=== PATIENT | female | born 1990 | race Caucasian/White ===

== ENCOUNTER 2018-02-13 09:10 | Emergency (ER) | payer OTHER, SELFPAY ==
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
--- OUTSIDE RECORDS SUMMARY | 2018-02-13 09:14 | XMS REPORT | Summary of Care ---
:1990 Author Encounter RACHEAL Burns(JUAN) [id number] Date(s): 06/16/14 - 06/19/[address] Professional Services provided by [facility] [place] [address]- Discharge Disposition: Home Physician Attending: Sin Faulkner MD Physician Admitting: Maggie Jeronimo MD Vital Signs Most recent to oldest 1 2 3 [Reference Range]: Height 152.4 cm (06/16/14 11:29 PM) Temperature Oral [96.4-99.1 98.1 DegF 97.6 DegF 97.9 DegF DegF] (06/19/14 8:43 AM) (06/19/14 4:27 AM) (06/18/14 7:13 PM) Blood Pressure [90-140/60-90 102/69 mmHg 113/79 mmHg 106/73 mmHg mmHg] (06/19/14 8:43 AM) (06/19/14 4:27 AM) (06/18/14 7:13 PM) Respiratory Rate [14-20 BRMIN] 18 BRMIN 18 BRMIN 19 BRMIN (06/19/14 8:43 AM) (06/19/14 4:27 AM) (06/18/14 7:13 PM) Peripheral Pulse Rate [60-100 70 bpm 71 bpm 67 bpm bpm] (06/19/14 8:43 AM) (06/19/14 4:27 AM) (06/18/14 7:13 PM) Weight 52.5 kg (06/16/14 11:29 PM) Body Mass Index 22.6 m2 (06/16/14 11:29 PM) Problem List No data available for this section Allergies, Adverse Reactions, Alerts Substance Reaction Severity Status NKDA Active Medications acetaminophen 650 mg, 2 tab, Route: PO, Drug form: TAB, Q4H, Dosing Weight 52.5, kg, PRN Pain 1-3/Temp > 100.4 F, Start date: 06/17/14 0:25:00, Duration: 30 day, Stop date: 07/17/14 0:24:00 Notes: Do not exceed 4 gm/day. (Same as: Tylenol) Start Date: 06/17/14 Stop Date: 06/19/14 Status: DiscontinuedALPRAZOLam unknown, 0 Refill(s) Start Date: 06/17/14 Stop Date: 06/17/14 Status: DiscontinuedALPRAZOLam 0.5 mg oral tablet, disintegrating 0.5 mg=1 tab, PO, Daily, PRN for anxiety, 0 Refill(s) Start Date: 06/17/14 Stop Date: 06/19/14 Status: Discontinuedcalcium carbonate 500 mg, 1 tab, Route: CHEW, Drug form: TAB, ONCE, Dosing Weight 52.5, kg, Start date: 06/18/14 22:41:00, Stop date: 06/18/14 22:41:00 Notes: 500mg elemental [id number] calcium carbonate. Contains 500mg elemental calcium. (Same As: OsCal 500) Start Date: 06/18/14 Stop Date: 06/18/14 Status: CompletedcefTRIAXone 2 gm, Route: IVPB, Drug form: PDR/INJ, GROE88H, Dosing Weight 52.5, kg, Start date: 06/17/14 8:00:00, Duration: 7 day, Stop date: 06/23/14 20:00:00 Notes: (Same As: Rocephin). Start Date: 06/17/14 Stop Date: 06/19/14 Status: Discontinueddocusate 100 mg, 1 cap, Route: PO, Drug form: CAP, BID, Dosing Weight 52.5, kg, PRN Constipation, Start date:06/17/14 0:25:00, Duration: 30 day, Stop date: 0:24:00 Notes: (Same as: Colace) (Do Not Crush) Start Date: 06/17/14 Stop Date: 06/19/14 Status: Discontinuedescitalopram unknown, 0 Refill(s) Start Date: 06/17/14 Stop Date: 06/17/14 Status: DiscontinuedFluzone Quadrivalent [id number] 0.5 mL, Route: IM, Drug Form: SUSP, Daily, Start date: 06/18/14 9:00:00, Duration: 1 doses or times,Stop date: 06/18/14 9:00:00 Notes: (Same as: Fluzone Quadrivalent) Start Date: 06/18/14 Stop Date: 06/18/14 Status: Completedibuprofen 800 mg, 1 tab, Route: PO, Drug form: TAB, ONCE, Dosing Weight 52.5, kg, Start date: 06/17/14 0:24:00, Stop date: 06/17/14 0:24:00 Notes: (Same as: Motrin)"Do Not Crush" Take with food. Start Date: 06/17/14 Stop Date: 06/17/14 Status: Completedibuprofen 800 mg, 1 tab, Route: PO, Drug form: TAB, ONCE, Dosing Weight 52.5, kg, Start date: 06/17/14 20:24:00, Stop date: 06/17/14 20:24:00 Notes: (Same as: Motrin)"Do Not Crush" Take with food. Start Date: 06/17/14 Stop Date: 06/17/14 Status: Completedinfluenza virus vaccine, inactivated 0.5 mL, Route: IM, Drug Form: SUSP, Daily, Start date: 06/17/14 9:00:00, Duration: 1 doses or times,Stop date: 06/17/14 9:00:00 Notes: (Same as: Fluzone Quadrivalent) Start Date: 06/17/14 Stop Date: 06/17/14 Status: DeletedLexapro 5 mg oral tablet 5 mg=1 tab, PO, Daily, # 90 tab, 0 Refill(s) Start Date: 06/17/14 Status: OrderedNorco 5/325 oral tablet 1 tab, Route: PO, Drug Form: TAB, Dosing Weight 52.5, kg, ONCE, Start date: 15:45:00, Stop date: 06/17/14 15:45:00 Notes: (Same as: [place] 325/5) Do not exceed 4gm/day of acetaminophen. Start Date: 06/17/14 Stop Date: 06/17/14 Status: Completedondansetron 4 mg, 2 mL, Route: IVP, Drug form: INJ, Q8H, Dosing Weight 52.5, kg, PRN Nausea & Vomiting, Start date: 06/17/14 0:25:00, Duration: 30 day, Stop date: 07/17 0:24:00 Notes: (Same as: Zofran) Start Date: 06/17/14 Stop Date: 06/19/14 Status: Discontinuedpneumococcal 23-valent vaccine 0.5 ml, Route: IM, Drug Form: INJ, Daily, Start date: 06/17/14 9:00:00, Duration : 1 doses or times, Stop date: 06/17/14 9:00:00 Notes: (Same as: Pneumovax 23) Refrigerate Start Date: 06/17/14 Stop Date: 06/17/14 Status: DeletedPneumovax 23 0.5 ml, Route: IM, Drug Form: INJ, Daily, Start date: 06/18/14 9:00:00, Duration : 1 doses or times, Stop date: 06/18/14 9:00:00 Notes: (Same as: Pneumovax 23) Refrigerate Start Date: 06/18/14 Stop Date: 06/18/14 Status: Completedpotassium chloride 20 mEq/15 mL oral liquid 40 mEq, 30 mL, Route: PO, Drug form: LIQ, Daily, Dosing Weight 52.5, kg, Start date: 06/19/14 9:00:00, Duration: 30 day, Stop date: 07/18/14 9:00:00 Notes: (Same as: Potassium Chloride) Start Date: 06/19/14 Stop Date: 06/19/14 Status: Discontinued Results ELECTROLYTES Most recent to oldest 1 2 3 [Reference Range]: Sodium Lvl [135-145 mEq/L] 140 mEq/L 140 mEq/L 140 mEq/L (06/19/14 4:58 AM) (06/18/14 5:21 AM) (06/17/14 3:49 AM) Potassium Lvl [3.5-5.1 3.3 mEq/L 3.8 mEq/L 3.6 mEq/L mEq/L] *LOW* (06/18/14 5:21 AM) (06/17/14 3:49 AM) (06/19/14 4:58 AM) Chloride Lvl [95-109 mEq/L] 105 mEq/L 106 mEq/L 104 mEq/L (06/19/14 4:58 AM) (06/18/14 5:21 AM) (06/17/14 3:49 AM) CO2 [24-32 mEq/L] 29 mEq/L 26 mEq/L 27 mEq/L (06/19/14 4:58 AM) (06/18/14 5:21 AM) (06/17/14 3:49 AM) AGAP [10.0-20.0 mEq/L] 9.3 mEq/L 11.8 mEq/L 12.6 mEq/L *LOW* (06/18/14 5:21 AM) (06/17/14 3:49 AM) (06/19/14 4:58 AM) CHEM PANEL Most recent to oldest 1 2 3 [Reference Range]: Creatinine Lvl [0.5-1.4 0.6 mg/dL 0.6 mg/dL 0.7 mg/dL mg/dL] (06/19/14 4:58 AM) (06/18/14 5:21 AM) (06/17/14 3:49 AM) eGFR 130 mL/min/1.73m2 1 130 mL/min/1.73m2 2 123 mL/min/1.73m2 3 *NA* *NA* *NA* (06/19/14 4:58 AM) (06/18/14 5:21 AM) (06/17/14 3:49 AM) BUN [7-22 mg/dL] 5 mg/dL 5 mg/dL 5 mg/dL *LOW* *LOW* *LOW* (06/19/14 4:58 AM) (06/18/14 5:21 AM) (06/17/14 3:49 AM) B/C Ratio [6-25] 7 (06/17/14 3:49 AM) Glucose Lvl [70-99 mg/dL] 80 mg/dL 4 77 mg/dL 5 84 mg/dL 6 (06/19/14 4:58 AM) (06/18/14 5:21 AM) (06/17/14 3:49 AM) Total Protein [6.4-8.4 6.7 g/dL g/dL] (06/17/14 3:49 AM) Albumin Lvl [3.5-5.0 g/dL] 2.4 g/dL *LOW* (06/17/14 3:49 AM) Globulin [2.0-4.0 g/dL] 4.3 g/dL *HI* (06/17/14 3:49 AM) A/G Ratio [0.7-1.6] 0.6 *LOW* (06/17/14 3:49 AM) Calcium Lvl [8.5-10.5 8.7 mg/dL 8.3 mg/dL 8.3 mg/dL mg/dL] (06/19/14 4:58 AM) *LOW* *LOW* (06/18/14 5:21 AM) (06/17/14 3:49 AM) Phosphorus [2.5-4.5 mg/dL] 3.7 mg/dL 4.8 mg/dL 2.9 mg/dL (06/19/14 4:58 AM) *HI* (06/17/14 3:49 AM) (06/18/14 5:21 AM) Magnesium Lvl [1.8-2.4 1.9 mg/dL 1.9 mg/dL 1.8 mg/dL mg/dL] (06/19/14 4:58 AM) (06/18/14 5:21 AM) (06/17/14 3:49 AM) ALT [0-65 unit/L] 13 unit/L (06/17/14 3:49 AM) AST [0-37 unit/L] 10 unit/L (06/17/14 3:49 AM) Alk Phos [39-136 unit/L] 103 unit/L (06/17/14 3:49 AM) Bili Total [0.2-1.3 mg/dL] 0.6 mg/dL (06/17/14 3:49 AM) 1Result Comment: The eGFR is calculated using the CKD-EPI formula. In most young , healthy individualsthe eGFR will be >90 mL/min/1.73m2. The eGFR declines with age. An eGFR of 60-89 may be normal in some populations, particularly the elderly, for whom the CKD-EPI formula has not been extensively validated. Use of the eGFR is not recommended in the following populations: Individuals with unstable creatinine concentrations, including patients and those with serious co-morbid conditions. Patients with extremes in muscle mass or diet. The data above are obtained from the National Kidney Disease Education Program ( NKDEP) which additionally recommends that when the eGFR is used in patients with extremes of body mass index for purposesof drug dosing, the eGFR should be multiplied by the estimated BMI.2Result Comment: The eGFR is calculated using the CKD-EPI formula. In most young, healthy individualsthe eGFR will be >90 mL/ min/1.73m2. The eGFR declines with age. An eGFR of 60-89 may be normal in some populations, particularly the elderly, for whom the CKD-EPI formula has not been extensively validated. Use of the eGFR is not recommended in the following populations: Individuals with unstable creatinine concentrations, including patients and those with serious co-morbid conditions. Patients with extremes in muscle mass or diet. The data above are obtained from the National Kidney Disease Education Program ( NKDEP) which additionally recommends that when the eGFR is used in patients with extremes of body mass index for purposesof drug dosing, the eGFR should be multiplied by the estimated BMI.3Result Comment: The eGFR is calculated using the CKD-EPI formula. In most young, healthy individualsthe eGFR will be >90 mL/ min/1.73m2. The eGFR declines with age. An eGFR of 60-89 may be normal in some populations, particularly the elderly, for whom the CKD-EPI formula has not been extensively validated. Use of the eGFR is not recommended in the following populations: Individuals with unstable creatinine concentrations, including patients and those with serious co-morbid conditions. Patients with extremes in muscle mass or diet. The data above are obtained from the National Kidney Disease Education Program ( NKDEP) which additionally recommends that when the eGFR is used in patients with extremes of body mass index for purposesof drug dosing, the eGFR should be multiplied by the estimated BMI.4Interpretive Data: Adult reference range values reflect the clinical guidelines of the [place] [employer].5Interpretive Data: Adult reference range values reflect the clinical guidelines of the [place] [employer].6Interpretive Data: Adult reference range values reflect the clinical guidelines of the [place] [employer].URINE AND STOOL Most recent to oldest [Reference Range]: 1 2 3 UA Turbidity [Clear] Slight *ABN* (06/17/14 3:49 AM) UA Color [Yellow] Yellow *NA* (06/17/14 3:49 AM) UA pH [5.0-8.0] 6.5 (06/17/14 3:49 AM) UA Spec Grav [<=1.030] 1.010 (06/17/14 3:49 AM) UA Glucose [Negative mg/dL] Negative mg/dL *NA* (06/17/14 3:49 AM) UA Blood [Negative] Negative (06/17/14 3:49 AM) UA Ketones [Negative mg/dL] Negative mg/dL *NA* (06/17/14 3:49 AM) UA Protein [Negative mg/dL] 10 mg/dL *ABN* (06/17/14 3:49 AM) UA Urobilinogen [0.1-1.0 mg/dL] 8.0 mg/dL *HI* (06/17/14 3:49 AM) UA Bili [Negative] Negative *NA* (06/17/14 3:49 AM) UA Leuk Est [Negative] Small *ABN* (06/17/14 3:49 AM) UA Nitrite [Negative] Negative (06/17/14 3:49 AM) UA WBC [0-5 /HPF] 19 /HPF *HI* (06/17/14 3:49 AM) UA RBC [0-2 /HPF] 1 /HPF (06/17/14 3:49 AM) UA Bacteria [None Seen /HPF] Occasional /HPF *NA* (06/17/14 3:49 AM) UA Sq Epi [Few /LPF] Many /LPF *ABN* (06/17/14 3:49 AM) UA Mucus [None Seen /LPF] Few /LPF *NA* (06/17/14 3:49 AM) BODY FLUIDS Most recent to oldest [Reference Range]: 1 2 3 Glucose CSF [45-80 mg/dL] 69 mg/dL (06/17/14 1:43 AM) Protein CSF [15-45 mg/dL] 27 mg/dL (06/17/14 1:43 AM) Tube Num CSF 1 *NA* (06/17/14 1:43 AM) Color CSF [Colorless] Colorless (06/17/14 1:43 AM) Clarity CSF [Clear] Clear (06/17/14 1:43 AM) Supernat CSF [Colorless] Colorless (06/17/14 1:43 AM) RBC CSF [0-0 /mm3] 1 /mm3 *HI* (06/17/14 1:43 AM) WBC CSF [0-5 /mm3] 1 /mm3 (06/17/14 1:43 AM) IMMUNOLOGY Most recent to oldest [Reference Range]: 1 2 3 VZV PCR NOT DETECTED 7 *NA* (06/15/14 10:03 PM) Source CSF *NA* (06/15/14 10:03 PM) 7Result Comment: REFERENCE RANGE: NOT DETECTED This test was developed and its performance characteristics have been determined by [facility]. Performance characteristics refer to the analytical performance of the test. This test is performed pursuant to a license agreement with [employer]. Test Performed at: [email or web address]. [address] [place] [id number] Val Palmer MDHEMATOLOGY Most recent to oldest 1 2 3 [Reference Range]: WBC [3.7-10.4 K/CMM] 7.7 K/CMM 8.6 K/CMM 10.0 K/CMM (06/19/14 4:58 AM) (06/18/14 5:21 AM) (06/17/14 3:49 AM) RBC [4.20-5.40 M/CMM] 3.64 M/CMM 3.77 M/CMM 3.93 M/CMM *LOW* *LOW* *LOW* (06/19/14 4:58 AM) (06/18/14 5:21 AM) (06/17/14 3:49 AM) Hgb [12.0-16.0 g/dL] 11.7 g/dL 12.1 g/dL 12.5 g/dL *LOW* (06/18/14 5:21 AM) (06/17/14 3:49 AM) (06/19/14 4:58 AM) Hct [36.0-48.0 %] 34.9 % 36.3 % 37.6 % *LOW* (06/18/14 5:21 AM) (06/17/14 3:49 AM) (06/19/14 4:58 AM) MCV [80.0-98.0 fL] 95.9 fL 96.3 fL 95.8 fL (06/19/14 4:58 AM) (06/18/14 5:21 AM) (06/17/14 3:49 AM) MCH [27.0-31.0 pg] 32.2 pg 32.1 pg 31.8 pg *HI* *HI* *HI* (06/19/14 4:58 AM) (06/18/14 5:21 AM) (06/17/14 3:49 AM) MCHC [32.0-36.0 g/dL] 33.6 g/dL 33.3 g/dL 33.2 g/dL (06/19/14 4:58 AM) (06/18/14 5:21 AM) (06/17/14 3:49 AM) RDW [11.5-14.5 %] 13.4 % 13.5 % 13.5 % (06/19/14 4:58 AM) (06/18/14 5:21 AM) (06/17/14 3:49 AM) Platelet [133-450 K/CMM] 301 K/CMM 238 K/CMM 216 K/CMM (06/19/14 4:58 AM) (06/18/14 5:21 AM) (06/17/14 3:49 AM) MPV [7.4-10.4 fL] 8.2 fL 8.7 fL 8.3 fL (06/19/14 4:58 AM) (06/18/14 5:21 AM) (06/17/14 3:49 AM) Segs [45.0-75.0 %] 64.2 % 66.2 % 69.3 % (06/19/14 4:58 AM) (06/18/14 5:21 AM) (06/17/14 3:49 AM) Lymphocytes [20.0-40.0 %] 19.4 % 15.6 % 11.8 % *LOW* *LOW* *LOW* (06/19/14 4:58 AM) (06/18/14 5:21 AM) (06/17/14 3:49 AM) Monocytes [2.0-12.0 %] 14.9 % 16.8 % 17.9 % *HI* *HI* *HI* (06/19/14 4:58 AM) (06/18/14 5:21 AM) (06/17/14 3:49 AM) Eosinophils [0.0-4.0 %] 1.1 % 1.2 % 0.7 % (06/19/14 4:58 AM) (06/18/14 5:21 AM) (06/17/14 3:49 AM) Basophils [0.0-1.0 %] 0.4 % 0.2 % 0.3 % (06/19/14 4:58 AM) (06/18/14 5:21 AM) (06/17/14 3:49 AM) Segs-Bands # [1.5-8.1 K/CMM] 4.9 K/CMM 5.7 K/CMM 6.9 K/CMM (06/19/14 4:58 AM) (06/18/14 5:21 AM) (06/17/14 3:49 AM) Lymphocytes # [1.0-5.5 1.5 K/CMM 1.3 K/CMM 1.2 K/CMM K/CMM] (06/19/14 4:58 AM) (06/18/14 5:21 AM) (06/17/14 3:49 AM) Monocytes # [0.0-0.8 K/CMM] 1.1 K/CMM 1.4 K/CMM 1.8 K/CMM *HI* *HI* *HI* (06/19/14 4:58 AM) (06/18/14 5:21 AM) (06/17/14 3:49 AM) Eosinophils # [0.0-0.5 0.1 K/CMM 0.1 K/CMM 0.1 K/CMM K/CMM] (06/19/14 4:58 AM) (06/18/14 5:21 AM) (06/17/14 3:49 AM) MOLECULAR DIAGNOSTIC Most recent to oldest [Reference Range]: 1 2 3 Source HSV Cerebral Spinal Fluid *NA* (06/15/14 10:03 PM) HSV 1 by PCR [Negative] Negative 8 (06/15/14 10:03 PM) HSV 2 by PCR [Negative] Negative 9, 10 (06/15/14 10:03 PM) 8Result Comment: This sample was NON DETECTED or BELOW THE LOWER LIMITS OF DETECTION for HSV 1 DNA by real-time PCR using hybridization probe and melting curve analysis.9Result Comment: This sample was NON DETECTED or BELOW THE LOWER LIMITS OF DETECTION for HSV 2 DNA by real-time PCR using hybridization probe and melting curve analysis.10Interpretive Data: All results should be used as an aid in diagnosis and used in correlation with clinical findings and patient symptoms. A negative result does not rule out the presence of Herpes Simplex Virus. The specimen may contain HSV below the detectable limits of the assay. An indeterminate result will be obtained if inhibitors of PCR are present. The test is performed using Analyte Specific Reagents (ASRs) for Real-Time nucleic acid amplification (PCR) from [employer] The performance characteristics of this assay were validated by the [facility] within [facility]. The [facility] is authorized under the Clinical Improvement Amendments of 1988 (CLIA -88) to perform high-complexity testing. This test has not been cleared by the U.S. Food and Drug Administration (FDA). However, FDA approval is not required and the use should not be considered investigational or research.VIRAL - SEROLOGY Most recent to oldest [Reference Range]: 1 2 3 Enterovirus PCR CSF [Negative] Negative 11 (06/15/14 10:03 PM) 11Interpretive Data: Interpretation: Negative.....No enterovirus DNA detected by PCR Positive.....Enterovirus DNA detected by PCR Assay Limitations: A negative result does not rule out the presence of PCR inhibitors in the patient specimen or Enterovirus nucleic acid in concentrations below the level of detection of the assay. Immunizations Vaccine Date Refusal Reason influenza virus vaccine, inactivated 06/18/14 pneumococcal 23-valent vaccine 06/18/14 Procedures Procedure Date Related Diagnosis Body Site Breast reduction, bilateral 12/22/13 Social History Social History Type Response Sexual Sexually active: Yes. Sexually active at age 16 Years. Partner with STD? No. Uses condoms: Yes. History of sexual abuse: No. Sex Mutually Satisfying: Yes. Change in Libido: No. Self Breast Exam Yes. Last Pap Smear April 2013. Menstrual Period Started: Yes. Exercise Exercise frequency: 1-2 times/week. Exercise type: Walking, Running, Yoga. Employment/School Status: Employed. 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 Operates hazardous equipment: No. Alcohol Current, Type Beer, Wine, Liquor. Frequency: 1-2 times per week. Previous treatment: None. Alcohol use interferes with work or home: No. Drinks more than intended: No. Others hurt by drinking: No. Ready to change: No. Household alcohol concerns: No. Smoking Status Light tobacco smoker; Type: Cigarettes; Number of years: 1; Total pack years: 3; Started at age: 22.0; Previous treatment: None; Ready to change: No; Concerns about tobacco use in household: No; Exposure to Tobacco Smoke None; Cigarette Smoking Last 365 Days Yes; Reg Smoking Cessation Counseling No Assessment and Plan Extracted from: Title: Clinical Document Author: Terry Mcknight MD Date: 06/19/14 Name: June Gallardo Record Number: [id number] Admission Date: 06/17/2014 Discharge Date: 06/19/2014 Diagnoses: aseptic menigitis Procedures: none Consults: none Chief Complaint: headache with fever HPI/Hospital Course: Ms Gallardo is a 23yo woman with PMHx of anxiety/depression, who presented with a 6 day history of severe headache, with high fevers( between 100-103 with a high of 104) and neck pain concerning for nicole terial meningitis. She also complained of a severe headache that did not improve with trial of naproxen. She stated she felt weak and suffered from neck/ back pain and stiffness as well. She was seen at an outside hospital day prior to admission, where an LP was conducted. CSF returned positive for H Flu antigen, and pt was called and told to go back in to initiate antibiotic treatment. She was given c eftriaxone (dose unknown but assumed 2g) IV x 1 as well as vancomycin dose unknown, and transfered to [facility] for higher level of care. Since arrival, she has remained afebrile, but her headache continues. She states she is up to date on her vaccinations and still has a functioning spleen as far as she is concerned. 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 No recent travel. Two infants at home are not ill and are up to date on vaccin ations. During the admission, she was treated with ceftriaxone. Her CSF was resent for studies but they were normal, glucose 69, protein 27, with 1 WBC and RBC. The patient did not have any fevers whil e admitted, and had no leukocytosis. Her headache resolved with ibuprofen 800 mg. The patient was monitored for 2 more days, and due to patient having complete return to baseline and no signs fo infecti on in house, there was a very low suspicion for bacterial infection. She may have had aseptic menigitis which was is now resolved. The patient did have monocytosis and some anemia, but they will be foll owed as outpatient. Bacterial antigen CSF was resent for and will be followed up to confirm. Discharge therapy: follow up with PCP for follow up labs Medications: Please see EMR Diet: regular Activity: no resitrictions Follow up: with PCP within 2 weeks Discharge condition: stable Disposition: home Discharge Instructions: Please take all medications as prescribed. If patient experiences any severe headache, severe neck stiffness, fever signs of infection , bleeding, please seek medical attention. Terry Mcknight, PGY-1 Internal Medicine, Team A Personal: [phone] TEACHING ATTENDING ATTESTATION STATEMENT: I have examined this patient and obtained the history and performed a physical examination. I have evaluated the objective data and determined the assessment a nd plan. I have seen this patient with Dr. Mcknight, medicine resident and discussed in detail. I agree with his summary of the hospital course and discharge plan outlined in the discharge note. Sin Faulkner MD Medicine Teaching Service Attending Extracted from: Title: Medicine Progress Note Author: Terry Mcknight MD Date: 06/19/14 Team A Daily Progress Note Patient Room: [place] [address], 3WCP JUNE GALLARDO 23y (: 1990) F Attending: Sin Faulkner MD Service: Nephrology Service Subjective: Patient states she has improved back to baseline. No complaints this AM. Objective: Vitals Tmp(F) Pulse BP RR SpO2 FIO2 06/19 04:27 97.6 71 113/79 18 99 --- 06/18 19:13 97.9 67 106/73 19 99 --- 06/18 16:38 97.6 66 105/71 16 100 --- 06/18 07:59 98.1 83 107/71 16 100 --- 06/18 04:18 97.5 75 96/66 17 100 --- 24 Hr Tmax: 98.1F (36.72c) at 06/18 07:59 Vital Signs are the last 5 in the past 48 hours. Date Wt(kg) Wt(lb) Ht(cm) Ht(in) Method 06/16 (initial) 52.50 115.50 Measured 06/16 152.40 60.00 Stated General: Alert and oriented. Laying in bed comfortably. Eye: Pupils are equal, round and reactive to light, Extraocular movements are intact, Normal conjunctiva. HENT: Normocephalic, Normal hearing, Oral mucosa is moist. Neck: Supple, no jugular venous distention, no lymphadenopathy. No tendernes/ rigidity Respiratory: Lungs are clear to auscultation, Respirations are non-labored. Cardiovascular: Normal rate, regular rhythm, normal s1/s2, no murmur, no gallop. Gastrointestinal: Non-tender. Non-distended, Normal bowel sounds, No organomegaly. Musculoskeletal Normal range of motion. Normal strength. No tenderness. No swelling. Neurologic: Alert, Oriented, No focal deficits, Cranial Nerves II-XII are grossly intact. Psychiatric: Cooperative, Appropriate mood & affect. Data: 24hr Labs 06/19 0458 Glucose Lvl 80 BUN 5 L Creatinine Lvl 0.6 Sodium Lvl 140 Potassium Lvl 3.3 L Chloride Lvl 105 CO2 29 AGAP 9.3 L Calcium Lvl 8.7 eGFR 130 Magnesium Lvl 1.9 Phosphorus 3.7 WBC 7.7 RBC 3.64 L Hgb 11.7 L Hct 34.9 L MCV 95.9 MCH 32.2 H MCHC 33.6 RDW 13.4 Platelet 301 MPV 8.2 Segs 64.2 Monocytes 14.9 H Lymphocytes 19.4 L Eosinophils 1.1 Basophils 0.4 Segs-Bands # 4.9 Lymphocytes # 1.5 Monocytes # 1.1 H Eosinophils # 0.1 06/15 2202 Enterovirus PCR CSF Negative Impression and Plan Ms Gallardo is a pleasant 23yo woman with PMHx of anxiety/depression, presents with a 6 day history of severe headache, with high fevers and neck pain concerning for bacterial meningitis. # Bacterial vs Viral Meningitis - H flu antigen positive, but no WBCs and no RBCs on CSF fluid analysis per report, called "[facility]" and [facility] to add on HSV and VZV PCR on CSF samples. Cultures are pending. - Continue ceftriaxone 2g IV Q12H at this time for total of 7 days, started - monitor for recurrent fever or worsening headache - Will repeat LP if symptoms return - at this time, patient shows no signs of infection, during our admission CSF studies were normal, low suspicion for infection # Headache - Likely meningeal - CT Head from OSH given to radiology reading room to be uploaded - Ibuprofen 800mg x 1, improved # Hx of Anxiety / Depression - continue home med of lexapro Diet: regular Activity: OOB as tolerated VTE ppx: ambulatory GI ppx: N/A Lines: PIV Rehab: N/A Wound Care: N/A Pain Control: acetaminophen / ibuprofen Code Status: FULL Follow Ups: TBD Dispo: pending further work up Terry Mcknight, PGY-1 Internal Medicine, Team A Personal: [phone] Addendum by Sin Faulkner MD on TEACHING ATTENDING ATTESTATION STATEMENT: I have examined this patient and obtained the history and performed a physical examination. I have evaluated the objective data and determined the assessment a 06/19/2014 11:49 nd plan. I have seen this patient with Dr. Mcknight, medicine resident, and I have discussed the patient in detail on teaching rounds. I have reviewed his progress note below and I agree with the summar y of the interval progress and plan of care outlined by Dr. Mcknight in his progress note. Sin Faulkner MD Medicine Teaching Service Attending Extracted from: Title: Resident Addendum H&P Author: Abhijit Mcneil MD Date: 06/17/[address] Vaughn's H&P for additional details. This is a 23 year old White lady with history of depression/anxiety who was transferred from [facility] [place]. She presented there with a 1-week history of headache, neck stiffness/ pain, and high fevers up to 104. Her fevers and headache did not resolve with honp-frr-dxcccki tylenol and ibuprofen. She has had some sick contacts as well. While at [facility] she underwent lumbar puncture, results were as follows: WBC 0, Glucose 69, Protein 29. Head CT was negative. She was discharged but then later asked to come back after further CSF s tudies were positive for H. flu antigen. Prior to transfer she was started on ceftriaxone. As far as she knows, her immunizations are up to date. She also thinks that the sick children were vaccinated. On exam she is no apparent distress. Her mentation was normal. There were no focal neurological deficits or photophobia. She has some perioral lesions that are healing that appear to be herpes labialis. She states that they started appearing during the time she got sick. She usually gets these during stress. Overall, I think she gives a good story for meningitis, but it is weird that her CSF results were normal. She has CSF cultures that are pending from [facility]; I called and verified this. I asked them to try adding HSV and VZV PCR if there is still CSF sample left. In the meantime, we will continue ceftriaxone and start droplet precautions. I don't think she still needs vancomycin. I also don't thin k this is herpes meningoencephalitis even though the perioral lesions do concern me a little, because she has had no altered mentation or temporal enhancement. I think aseptic meningitis should still be in the differential. If routine cultures grow out H. flu, then I think the case can be closed. I agree with Dr. Mcneil's summary above. Sin Faulkner MD
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
[2018-02-13] MEDS ORDERED: ONDANSETRON 4 MG/2 ML VIAL ONE (10:03)
[2018-02-13] MEDS ORDERED: NA CHLORIDE 0.9% 1,000 ML ONE (10:03)
[2018-02-13] MEDS ORDERED: ACETAMINOPHEN 325 MG TABLET ONE (10:03)
[2018-02-13 10:11] LABS: Absolute Lymphocytes (CBC) 1.2 K/uL (0.7-4.9); Absolute Monocytes 0.9 K/uL (0.1-1.3); Absolute Neutrophil 15.9 K/uL (1.8-8.0); Basophils % 0.3 % (0-1.3); Eosinophils % 0.2 % (0-4.4); Hematocrit 45.4 % (36.0-45.0); Lymphocytes % 6.7 % (15.3-44.8); MCH 33.3 pg (27.0-35.0); MCV 95.7 fL (80-100); MPV 9.2 fL (7.6-11.3); RBC Red Blood Cell Count 4.74 M/uL (3.86-4.86)
[2018-02-13 10:18] LABS: Albumin 4.6 g/dL (3.4-5.0); Bilirubin Direct 0.1 mg/dL (0-0.2); Bilirubin Total 0.4 mg/dL (0.2-1.0); Potassium 3.9 mmol/L (3.5-5.1); Protein, Total 9.1 g/dL (6.4-8.2)
[2018-02-13] MEDS ORDERED: PROMETHAZINE 25 MG/ML VIAL ONE (11:41)
[2018-02-13 11:48] LABS: Urine Blood NEGATIVE (NEG); Urine Glucose NEGATIVE (NEG); Urine Protein TRACE (NEG); Urine Specific Gravity 1.025 (1.005-1.030); Urine pH 5.5 (5.0-7.0)
--- NOTE | 2018-02-13 11:50 | RAD REPORT ---
EXAM DESCRIPTION: CTAbdomen Pelvis W Contrast - 02/13/2018 11:40 am CLINICAL HISTORY: Abdominal pain. iv only;Abd pain COMPARISON: No comparisons TECHNIQUE: Biphasic CT imaging of the abdomen and pelvis was performed with 100 ml non-ionic IV cont rast. All CT scans are performed using dose optimization technique as appropriate and may include automated exposure control or mA/KV adjustment according to patient size. FINDINGS: The lung bases are clear. Mild fatty liver is present. The spleen, pancreas, adrenal glands and left kidney are normal. Right k idney contains a 13 mm benign cyst superiorly. No hydronephrosis. No bowel obstruction, free air, free fluid or abscess. The appendix is normal. No evidence of signi ficant lymphadenopathy. No suspicious bony findings. Prominent fluid is seen in the endometrial canal. IMPRESSION: No acute intra-abdominal or pelvic finding. Fatty liver noted.
--- NOTE | 2018-02-13 12:13 | ER ---
Nurse's Notes [facility] Name: Shital Ramirez Age: 27 yrs Sex: Female : 1990 Arrival Date: 02/13/2018 Time: 09:13 Bed 13 Private MD: Vitaliy Parada Diagnosis: Gastroenteritis Presentation: 02/13 09:20 Presenting complaint: Patient states: nausea and vomiting that began today at 0430. Pt aa5 states "my whole back is hurting but I think it's from being sore from coughing". Transition of care: patient was not received from another setting of care. Onset of symptoms was February 13, 2018. Risk Assessment: Do you want to hurt yourself or someone else? Patient reports no desire to harm self or others. Care prior to arrival: None. 09:20 Method Of Arrival: Ambulatory aa5 09:20 Acuity: AYE 3 aa5 09:24 Initial Sepsis Screen: Does the patient meet any 2 criteria? HR > 90 bpm. tw2 10:04 Initial Sepsis Screen: Does the patient have a suspected source of infection? No. tw2 Patient's initial sepsis screen is negative. 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 - Social history:: Smoking status: Patient/guardian denies using tobacco. - Ebola Screening: : No symptoms or risks identified at this time. Screenin:23 Abuse screen: Denies threats or abuse. Nutritional screening: No deficits noted. tw2 Tuberculosis screening: No symptoms or risk factors identified. Fall Risk None identified. Assessment: 10:04 General: Appears in no apparent distress. slender, Behavior is calm, cooperative, tw2 appropriate for age. Pain: Complains of pain in abdomen. Neuro: Level of Consciousness is awake, alert, obeys commands, Oriented to person, place, time, situation. Cardiovascular: Heart tones S1 S2 Patient's skin is warm and dry. Respiratory: Airway is patent Respiratory effort is even, unlabored, Respiratory pattern is regular, symmetrical, Breath sounds are clear bilaterally. GI: Abdomen is flat, Bowel sounds present X 4 quads. Reports lower abdominal pain, upper abdominal pain, nausea. : No signs and/or symptoms were reported regarding the genitourinary system. EENT: Derm: Skin is intact, is healthy with good turgor, Skin is dry, Skin temperature is warm. Musculoskeletal: No signs and/or symptoms reported regarding the musculoskeletal system. 11:00 Reassessment: Patient appears in no apparent distress at this time. No changes from tw2 previously documented assessment. Patient and/or family updated on plan of care and expected duration. Pain level reassessed. Patient is alert, oriented x 3, equal unlabored respirations, skin warm/dry/pink. 12:08 Reassessment: Patient appears in no apparent distress at this time. No changes from tw2 previously documented assessment. Patient and/or family updated on plan of care and expected duration. Pain level reassessed. Patient is alert, oriented x 3, equal unlabored respirations, skin warm/dry/pink. 12:39 Reassessment: Patient appears in no apparent distress at this time. Patient and/or tw2 family updated on plan of care and expected duration. Pain level reassessed. Patient is alert, oriented x 3, equal unlabored respirations, skin warm/dry/pink. nausea is decreased. Patient states feeling better. Patient states symptoms have improved. Vital Signs: 09:21 BP 114 / 96; Pulse 116; Resp 18 S; Temp 99.0(TE); Pulse Ox 100% on R/A; Weight 49.9 kg aa5 (R); Height 5 ft. 0 in. (152.40 cm) (R); Pain 8/10; 10:19 BP 109 / 96; Pulse 89; Resp 18; Pulse Ox 98% on R/A; tw2 11:00 BP 94 / 72; Pulse 84; Resp 17; Pulse Ox 99% on R/A; tw2 12:07 BP 99 / 66; Pulse 93; Resp 17; Temp 98.7(O); Pulse Ox 97% on R/A; tw2 12:38 BP 103 / 63; Pulse 88; Resp 17; Pulse Ox 99% on R/A; tw2 09:21 Body Mass Index 21.48 (49.90 kg, 152.40 cm) aa5 ED Course: 09:13 Patient arrived in ED. rg4 09:13 Vitaliy Parada MD is Private Physician. rg4 09:21 Triage completed. aa5 09:21 Arm band placed on. aa5 09:23 [facility] jr8 09:23 Melvin Barth MD is Attending Physician. jr8 09:23 Leidy Avendaño, YONG is Primary Nurse. tw2 09:24 Bed in low position. Call light in reach. Adult w/ patient. Pulse ox on. NIBP on. tw2 09:52 Initial lab(s) drawn, by me, by rn lab, sent to lab. Flu and/or RSV swab sent to lab. mh5 Inserted saline lock: 22 gauge in right antecubital area, using aseptic technique. Blood collected. 09:52 Basic Metabolic Panel Sent. mh5 09:52 CBC with Diff Sent. mh5 09:52 Creatinine for Radiology Sent. mh5 09:53 Patient has correct armband on for positive identification. Placed in gown. Side rails mh5 up X 1. 09:53 Hepatic Function Sent. mh5 09:53 Lipase Sent. mh5 11:[address] vr 11:40 CT completed. Patient tolerated procedure well. Patient moved back from CT. jg6 11:40 CT Abd/Pelvis - W/Contrast In Process Unspecified. EDMS 12:12 Vitaliy Parada MD is Referral Physician. jr8 12:39 No provider procedures requiring assistance completed. IV discontinued, intact, tw2 bleeding controlled, No redness/swelling at site. Pressure dressing applied. Administered Medications: 10:00 Drug: Zofran 4 mg Route: IVP; Site: right antecubital; tw2 11:50 Follow up: Response: No adverse reaction; Nausea unchanged tw2 10:02 Drug: NS 0.9% 1000 ml Route: IV; Rate: 1000 ml; Site: right antecubital; tw2 11:50 Follow up: Response: No adverse reaction; IV Status: Completed infusion; IV Intake: tw2 1000ml 10:03 Drug: Tylenol 650 mg Route: PO; tw2 11:51 Follow up: Response: No adverse reaction tw2 11:50 Drug: Promethazine 12.5 mg Route: IVP; Site: right antecubital; tw2 12:34 Follow up: Response: No adverse reaction em Intake: 11:50 IV: 1000ml; Total: 1000ml. tw2 Outcome: 12:13 Discharge ordered by . cesario 12:39 Discharged to home ambulatory, with friend. tw2 12:39 Condition: stable 12:39 Discharge instructions given to patient, family, Instructed on discharge instructions, follow up and referral plans. no drinking with medication, no driving heavy equipment, medication usage, Demonstrated understanding of instructions, follow-up care, medications, Prescriptions given X 1. 12:41 Patient left the ED. tw2 Signatures: Dispatcher [employer] EDJoshua Jones, TABLE SETTER TABLE SETTER Jennifer Rocha, RN RN [email or web address] Alyssia Chen Josh, PA PA jr8 Leidy Avendaño RN RN tw2 Afua Hunter Maria [facility] Megha Hunter
--- NOTE | 2018-02-13 12:13 | EDPHYS ---
Physician Documentation [facility] Name: Shital Ramirez Age: 27 yrs Sex: Female : 1990 Arrival Date: 02/13/2018 Time: 09:13 Bed 13 Private MD: Vitaliy Parada ED Physician Melvin Barth HPI: 02/13 09:53 This 27 yrs old Female presents to ER via Ambulatory with complaints of jr8 Vomiting. 09:53 The patient presents to the emergency department with nausea, vomiting, diarrhea. jr8 Onset: The symptoms/episode began/occurred acutely, today. Possible causes: unknown. The symptoms are aggravated by nothing. The symptoms are alleviated by nothing. Associated signs and symptoms: Pertinent positives: body aches, chills, low grade fever. Severity of symptoms: At their worst the symptoms were moderate in the emergency department the symptoms are unchanged. The patient has not experienced similar symptoms in the past. The patient has not recently seen a physician. 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 - Social history:: Smoking status: Patient/guardian denies using tobacco. - Ebola Screening: : No symptoms or risks identified at this time. ROS: 09:53 Eyes: Negative for injury, pain, redness, and discharge, ENT: Negative for injury, jr8 pain, and discharge. Positive for rhinorrhea Neck: Negative for injury, pain, and swelling, Cardiovascular: Negative for chest pain, palpitations, and edema, Respiratory: Negative for shortness of breath, cough, wheezing, and pleuritic chest pain, Back: Negative for injury and pain, MS/Extremity: Negative for injury and deformity, Skin: Negative for injury, rash, and discoloration, Neuro: Negative for headache, weakness, numbness, tingling, and seizure. 09:53 Constitutional: Positive for body aches, chills, fever. 09:53 Abdomen/GI: Positive for nausea, vomiting, and diarrhea, abdominal cramps, Negative for constipation, hematemesis, black/tarry stool, rectal pain, rectal bleeding, bowel incontinence, flatulence. Exam: 09:53 Eyes: Pupils equal round and reactive to light, extra-ocular motions intact. Lids and jr8 lashes normal. Conjunctiva and sclera are non-icteric and not injected. Cornea within normal limits. Periorbital areas with no swelling, redness, or edema. ENT: Nares patent. No nasal discharge, no septal abnormalities noted. Tympanic membranes are normal and external auditory canals are clear. Oropharynx with no redness, swelling, or masses, exudates, or evidence of obstruction, uvula midline. Mucous membranes moist. Cardiovascular: Regular rate and rhythm with a normal S1 and S2. No gallops, murmurs, or rubs. Normal PMI, no JVD. No pulse deficits. Respiratory: Lungs have equal breath sounds bilaterally, clear to auscultation and percussion. No rales, rhonchi or wheezes noted. No increased work of breathing, no retractions or nasal flaring. Back: No spinal tenderness. No costovertebral tenderness. Full range of motion. Skin: Warm, dry with normal turgor. Normal color with no rashes, no lesions, and no evidence of cellulitis. MS/ Extremity: Pulses equal, no cyanosis. Neurovascular intact. Full, normal range of motion. Neuro: Awake and alert, GCS 15, oriented to person, place, time, and situation. Cranial nerves II-XII grossly intact. Motor strength 5/5 in all extremities. Sensory grossly intact. Cerebellar exam normal. Normal gait. 09:53 Abdomen/GI: Inspection: abdomen appears normal, Bowel sounds: active, all quadrants, Palpation: soft, in all quadrants, mild abdominal tenderness, in the mid upper abdomen, rebound tenderness, is not appreciated, voluntary guarding, is not appreciated, involuntary guarding, is not appreciated, no appreciated organomegaly, Indicators: McBurney's point is not tender, Britton's sign is negative, Rovsing's sign is negative, Liver: tenderness, is not appreciated. Vital Signs: 09:21 BP 114 / 96; Pulse 116; Resp 18 S; Temp 99.0(TE); Pulse Ox 100% on R/A; Weight 49.9 kg aa5 (R); Height 5 ft. 0 in. (152.40 cm) (R); Pain 8/10; 10:19 BP 109 / 96; Pulse 89; Resp 18; Pulse Ox 98% on R/A; tw2 11:00 BP 94 / 72; Pulse 84; Resp 17; Pulse Ox 99% on R/A; tw2 12:07 BP 99 / 66; Pulse 93; Resp 17; Temp 98.7(O); Pulse Ox 97% on R/A; tw2 12:38 BP 103 / 63; Pulse 88; Resp 17; Pulse Ox 99% on R/A; tw2 09:21 Body Mass Index 21.48 (49.90 kg, 152.40 cm) aa5 MDM: 09:23 Patient medically screened. jr8 12:12 Data reviewed: vital signs, nurses notes, lab test result(s), radiologic studies, CT jr8 scan, and as a result, I will discharge patient. Data interpreted: Pulse oximetry: on room air is 97 %. Interpretation: normal. Counseling: I had a detailed discussion with the patient and/or guardian regarding: the historical points, exam findings, and any diagnostic results supporting the discharge/admit diagnosis, lab results, radiology results, the need for outpatient follow up, a family practitioner, to return to the emergency department if symptoms worsen or persist or if there are any questions or concerns that arise at home. Response to treatment: the patient's symptoms have markedly improved after treatment, patient is well hydrated. 02/13 09:37 Order name: Basic Metabolic Panel; Complete Time: 10:02/13 09:37 Order name: CBC with Diff; Complete Time: 10:16 02/13 09:37 Order name: Creatinine for Radiology; Complete Time: 10:02/13 09:37 Order name: Hepatic Function; Complete Time: 10:02/13 09:37 Order name: Lipase; Complete Time: 10:02/13 09:37 Order name: Influenza Screen (a \T\ B); Complete Time: 10:50 02/13 09:37 Order name: IV Saline Lock; Complete Time: 09:52 02/13 11:02 Order name: CT Abd/Pelvis - W/Contrast; Complete Time: 12:12 02/13 11:39 Order name: Urine Dipstick--Ancillary (enter results); Complete Time: 11:48 02/13 11:39 Order name: Urine --Ancillary (enter results); Complete Time: 11:48 eb 02/13 09:37 Order name: Labs collected and sent; Complete Time: 09:52 jr8 02/13 09:37 Order name: Urine Test (obtain specimen); Complete Time: 12:07 jr8 02/13 09:37 Order name: Urine Dipstick-Ancillary (obtain specimen); Complete Time: 12:07 Administered Medications: 10:00 Drug: Zofran 4 mg Route: IVP; Site: right antecubital; tw2 11:50 Follow up: Response: No adverse reaction; Nausea unchanged tw2 10:02 Drug: NS 0.9% 1000 ml Route: IV; Rate: 1000 ml; Site: right antecubital; tw2 11:50 Follow up: Response: No adverse reaction; IV Status: Completed infusion; IV Intake: tw2 1000ml 10:03 Drug: Tylenol 650 mg Route: PO; tw2 11:51 Follow up: Response: No adverse reaction tw2 11:50 Drug: Promethazine 12.5 mg Route: IVP; Site: right antecubital; tw2 12:34 Follow up: Response: No adverse reaction em Disposition: 02/13/18 12:13 Discharged to Home. Impression: Gastroenteritis. - Condition is Stable. - Discharge Instructions: Viral Gastroenteritis, Adult. - Prescriptions for promethazine 25 mg Oral Tablet - take 1 tablet by ORAL route every 6 hours As needed; 20 tablet. - Medication Reconciliation Form, Thank You Letter, Antibiotic Education, Prescription Opioid Use, Work release form form. - Follow up: Vitaliy Parada MD; When: 2 - 3 days; Reason: Recheck today's complaints, Continuance of care, Re-evaluation by your physician. - Problem is new. - Symptoms have improved. Addendum: 02/16/2018 08:08 Co-signature as Attending Physician, Melvin Barth MD I agree with the assessment and c louie plan of care. Signatures: Dispatcher [employer] Melvin Ray MD MD cha Calderon, Audri, RN RN aa5 Kiran Cheney PA PA jr8 Leidy Avendaño RN RN tw2 Joshua Rodriguez FINANCIAL INSTITUTION MANAGER em Corrections: (The following items were deleted from the chart) 02/13 12:41 12:13 02/13/2018 12:13 Discharged to Home. Impression: Gastroenteritis. Condition is tw2 Stable. Forms are Medication Reconciliation Form, Thank You Letter, Antibiotic Education, Prescription Opioid Use. Follow up: Vitaliy Parada; When: 2 - 3 days; Reason: Recheck today's complaints, Continuance of care, Re-evaluation by your physician. Problem is new. Symptoms have improved. jr8
[2018-02-13 13:03] VITALS: TEMP 98.7
[2018-02-13 13:05] VITALS: BP 103/63; O2SAT 99
== END 2018-02-13 12:41 | disposition home or self-care (01) ==
LOC: ER 09:10
DX: K52.9 Noninfective gastroenteritis and colitis, unspecified (principal)
CPT/HCPCS: 36415; 74177; 80048; 80076; 81003; 81025; 83690; 85025; 87804; 96361; 96374; 96375; 99284; J2405; J2550; J7030; Q9967

== ENCOUNTER 2018-08-23 23:21 | Emergency (ER) | payer SELFPAY ==
--- OUTSIDE RECORDS SUMMARY | 2018-08-23 23:26 | XMS REPORT ---
:1990 [facility] [place] [address] Care Team Providers Name Role Phone Unavailable Unavailable Unavailable Payers Payer Name Policy Type Policy Number Effective Date Expiration Date Problems This patient has no known problems. Allergies, Adverse Reactions, Alerts Allergy Allergy Status Severity Reaction(s) Onset Inactive Treating Comments Name Type Date Date Clinician No Known DA Active U 2018-03 Allergies -21 00:00:0 0 Medications This patient has no known medications.
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
[2018-08-24] MEDS ORDERED: NA CHLORIDE 0.9% 1,000 ML ONE (00:05)
[2018-08-24 00:18] LABS: Absolute Lymphocytes (CBC) 1.1 K/uL (0.7-4.9); Absolute Monocytes 0.5 K/uL (0.1-1.3); Absolute Neutrophil 6.9 K/uL (1.8-8.0); BUN Blood Urea Nitrogen 9 mg/dL (7-18); Basophils % 0.2 % (0-1.3); Bicarbonate 24 mmol/L (21-32); Eosinophils % 0.3 % (0-4.4); Glucose Level 102 mg/dL (74-106); Hematocrit 37.4 % (36.0-45.0); Lymphocytes % 12.4 % (15.3-44.8); MPV 9.2 fL (7.6-11.3); Monocytes % 5.8 % (3.3-12.3); Potassium 3.5 mmol/L (3.5-5.1); RBC Red Blood Cell Count 3.87 M/uL (3.86-4.86); Sodium Level 143 mmol/L (136-145)
[2018-08-24 00:45] LABS: Urine Blood NEGATIVE (NEG); Urine Glucose NEGATIVE (NEG); Urine Protein NEGATIVE (NEG); Urine Specific Gravity <1.005 (1.005-1.030); Urine pH 5.5 (5.0-7.0)
[2018-08-24] MEDS ORDERED: KETOROLAC 30 MG/ML INJ ONE (00:59)
[2018-08-24] MEDS ORDERED: MORPHINE 2 MG/ML SYR ONE (01:58)
--- NOTE | 2018-08-24 02:30 | ER ---
Nurse's Notes [facility] [place], [place] Name: Shital Ramirez Age: 27 yrs Sex: Female : 1990 Arrival Date: 08/23/2018 Time: 23:26 Bed 27 Private MD: Vitaliy Parada Diagnosis: Fractures T4 and T5. S/P Fall Presentation: 08/23 23:30 Presenting complaint: Patient states: she was bucked off of her horse at approx 1930 bb and was dizzy for an hour with lower back pain, she tried bending over and the pain was excruciating. Transition of care: patient was not received from another setting of care. Onset of symptoms was August 23, 2018. Risk Assessment: Do you want to hurt yourself or someone else? Patient reports no desire to harm self or others. Initial Sepsis Screen: Does the patient meet any 2 criteria? No. Patient's initial sepsis screen is negative. Does the patient have a suspected source of infection? No. Patient's initial sepsis screen is negative. Care prior to arrival: None. 23:30 Method Of Arrival: Ambulatory 23:30 Acuity: AYE 2 23:30 Mechanism of Injury: bucked off of a horse. Trauma event details: Injury occurred in the [facility], Injury occurred: at home. Injury occurred: August 23, 2018. 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 Trauma Activation: Alert Physician: ED Physician; Name: Chad; Notified At: 23:41; Arrived At: 23:41 Physician: General Surgeon; Name: ; Notified At: 23:41; Arrived At: Physician: Radiology; Name: Domi Duron; Notified At: 23:41; Arrived At: 23:41 Physician: Respiratory; Name: ; Notified At: 23:41; Arrived At: Physician: Lab; Name: ; Notified At: 23:41; Arrived At: Historical: - Allergies: 08/24 00:04 No Known Allergies; bb - Home Meds: 00:04 Lexapro Oral [Active]; bb - PMHx: 00:04 Depression; Anxiety; bb - PSHx: 00:04 Tubal ligation; pin in wrist; bb - Immunization history:: Adult Immunizations up to date. - Social history:: Smoking status: Patient/guardian denies using tobacco. - Immunization history: Last tetanus immunization: - up to date. - Ebola Screening: : No symptoms or risks identified at this time. Screenin:04 Abuse screen: Denies threats or abuse. Denies injuries from another. Nutritional rv screening: No deficits noted. Tuberculosis screening: No symptoms or risk factors identified. Fall Risk None identified. Primary Survey: 08/23 23:30 NO uncontrolled hemorrhage observed. A: The patient is alert. Airway: patent. bb Breathing/Chest: Respiratory pattern: regular, Respiratory effort: spontaneous, unlabored, Breath sounds: clear, bilaterally. Chest inspection: symmetrical rise and fall of the chest. Circulation: Heart tones present. Pulses: palpable right radial artery and left radial artery. Skin color: pink, Skin temperature: warm. Disability Alert. Exposure/Environment: All clothing and personal items were removed. 08/24 01:09 Reassessment Airway Airway Patent Breathing/Chest Respiratory pattern Regular rv Circulation Color [place]. Secondary Survey: 08/23 23:30 HEENT: No deficits noted. Gastrointestinal: Abdomen is soft, Palpation No deficit bb noted. : No deficits noted. No signs and/or symptoms were reported regarding the genitourinary system. Musculoskeletal: Circulation, motion, and sensation intact. Capillary refill < 3 seconds, erythema to lumbar area Reports pain in lower back. Assessment: 08/24 00:03 General: Appears in no apparent distress. uncomfortable, Behavior is calm, cooperative. rv Pain: Complains of pain in back. Neuro: Level of Consciousness is awake, alert, obeys commands, Oriented to person, place, time, situation. Cardiovascular: Patient's skin is warm and dry. Respiratory: Airway is patent. GI: No signs and/or symptoms were reported involving the gastrointestinal system. : No signs and/or symptoms were reported regarding the genitourinary system. EENT: No signs and/or symptoms were reported regarding the EENT system. Derm: Bruising that is dark purple, on left leg. Musculoskeletal: Reports pain in back. 01:10 Reassessment: Patient appears in no apparent distress at this time. Patient and/or rv family updated on plan of care and expected duration. Pain level reassessed. Patient is alert, oriented x 3, equal unlabored respirations, skin warm/dry/pink. patient taken to CT scan. Vital Signs: 08/23 23:35 BP 103 / 73; Pulse 93; Resp 16; Temp 98.7(O); Pulse Ox 99% on R/A; Weight 49.9 kg (R); bb Height 5 ft. 0 in. (152.40 cm) (R); Pain 6/10; 23:38 BP 103 / 73; Pulse 92; Resp 16; Pulse Ox 100% ; rv 23:45 Temp 98.6; rv 08/24 00:00 BP 117 / 87; Pulse 91; Resp 16; Pulse Ox 100% ; rv 00:30 BP 104 / 71; Pulse 89; Resp 15; Pulse Ox 99% ; rv 01:00 BP 98 / 69; Pulse 83; Resp 17; Pulse Ox 100% ; rv 01:54 BP 101 / 73; Pulse 77; Resp 16; Temp 98.4; Pulse Ox 99% ; rv 08/23 23:35 Body Mass Index 21.48 (49.90 kg, 152.40 cm) bb [place] Coma Score: 08/23 23:30 Eye Response: spontaneous(4). Verbal Response: oriented(5). Motor Response: obeys bb commands(6). Total: 15. Trauma Score (Adult): 23:30 Eye Response: spontaneous(1); Verbal Response: oriented(1); Motor Response: obeys bb commands(2); Systolic BP: > 89 mm Hg(4); Respiratory Rate: 10 to 29 per min(4); Melina Score: 15; Trauma Score: 12 ED Course: 23:26 Patient arrived in ED. es 23:26 Vitaliy Parada MD is Private Physician. es 23:30 Patient maintains SpO2 saturation greater than 95% on room air. Thermoregulation: warm bb blanket given to patient. 23:38 Donato Bonilla MD is Attending Physician. pkl 23:48 Mo Valente RN is Primary Nurse. rv 23:50 Inserted saline lock: 22 gauge in right antecubital area, using aseptic technique. rv Blood collected. 08/24 00:03 Triage completed. bb 00:05 Patient has correct armband on for positive identification. Placed in gown. Bed in low rv position. Call light in reach. Side rails up X 1. Adult w/ patient. Pulse ox on. NIBP on. 00:05 Arm band placed on right wrist. Patient placed in an exam room, on a stretcher, on rv pulse oximetry, Patient notified of wait time. 01:50 CT Chest, Abdomen, Pelvis - W/Contrast In Process Unspecified. EDMS 02:28 Vitaliy Parada MD is Referral Physician. pkl 02:50 No provider procedures requiring assistance completed. IV discontinued, intact, rv bleeding controlled, No redness/swelling at site. Pressure dressing applied. Administered Medications: 08/23 23:57 Drug: NS 0.9% 500 ml Route: IV; Rate: bolus; Site: right antecubital; rv 08/24 01:49 Follow up: IV Status: Completed infusion; IV Intake: 500ml rv 08/23 23:57 Drug: NS 0.9% 1000 ml Route: IV; Rate: 100 ml/hr; Site: right antecubital; rv 08/24 02:48 Follow up: IV Status: Order to discontinue infusion rv 00:47 Drug: TORadol 30 mg Route: IVP; Site: right antecubital; ca1 01:49 Follow up: Response: Pain is unchanged, physician notified rv 01:45 Drug: morphine 2 mg Route: IVP; Site: right antecubital; rv 02:48 Follow up: Response: Pain is decreased rv 02:30 Drug: [place] 5 mg-325 mg 1 tabs Route: PO; rv 02:48 Follow up: Response: Medication administered at discharge. rv Intake: 08/23 23:30 PO: 0ml; Total: 0ml. bb 08/24 01:49 IV: 500ml; Total: 500ml. rv Outcome: 02:29 Discharge ordered by . pkl 02:51 Discharged to home ambulatory. rv 02:51 Condition: good 02:51 Discharge instructions given to patient, Instructed on discharge instructions, follow up and referral plans. medication usage, Demonstrated understanding of instructions, follow-up care, medications, Prescriptions given X 1. 02:56 Patient's length of stay in the Emergency Department was greater than [address] SCAN rv RESULTPatient's length of stay extended due to 02:56 Patient left the ED. rv Signatures: Dis[facility] Donato Bonilla MD MD pkMarylou Anderson Brenda, RN RN bb Mo Valente, RN RN rv Acxavier, [place], RN RN ca1
--- NOTE | 2018-08-24 02:30 | EDPHYS ---
Physician Documentation [facility] Name: Shital Ramirez Age: 27 yrs Sex: Female : 1990 Arrival Date: 08/23/2018 Time: 23:26 Bed 27 Private MD: Vitaliy Parada ED Physician Donato Bonilla HPI: 08/24 02:15 This 27 yrs old Female presents to ER via Ambulatory with complaints of Fall pkl from horse. 02:15 Details of fall: The patient fell from a height, fell off a horse. Onset: The pkl symptoms/episode began/occurred just prior to arrival, 5 hour(s) ago. Associated injuries: The patient sustained upper back injury, injury to the low back, contusion. 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 - Social history:: Smoking status: Patient/guardian denies using tobacco. - Immunization history: Last tetanus immunization: - up to date. - Ebola Screening: : No symptoms or risks identified at this time. ROS: 02:15 Eyes: Negative for injury, pain, redness, and discharge, ENT: Negative for injury, pkl pain, and discharge, Neck: Negative for injury, pain, and swelling, Cardiovascular: Negative for chest pain, palpitations, and edema, Respiratory: Negative for shortness of breath, cough, wheezing, and pleuritic chest pain, Abdomen/GI: Negative for abdominal pain, nausea, vomiting, diarrhea, and constipation. 02:15 Back: Positive for pain with movement, of the mid and lower back. 02:15 : Negative for urinary symptoms. 02:15 MS/extremity: Negative for acute changes. 02:15 Skin: Negative for rash. 02:15 Neuro: Negative for altered mental status, loss of consciousness. Exam: 02:15 Head/Face: Normocephalic, atraumatic. Eyes: Pupils equal round and reactive to light, pkl extra-ocular motions intact. Lids and lashes normal. Conjunctiva and sclera are non-icteric and not injected. Cornea within normal limits. Periorbital areas with no swelling, redness, or edema. ENT: Nares patent. No nasal discharge, no septal abnormalities noted. Tympanic membranes are normal and external auditory canals are clear. Oropharynx with no redness, swelling, or masses, exudates, or evidence of obstruction, uvula midline. Mucous membranes moist. Neck: Trachea midline, no thyromegaly or masses palpated, and no cervical lymphadenopathy. Supple, full range of motion without nuchal rigidity, or vertebral point tenderness. No Meningismus. Chest/axilla: Normal chest wall appearance and motion. Nontender with no deformity. No lesions are appreciated. Cardiovascular: Regular rate and rhythm with a normal S1 and S2. No gallops, murmurs, or rubs. Normal PMI, no JVD. No pulse deficits. Respiratory: Lungs have equal breath sounds bilaterally, clear to auscultation and percussion. No rales, rhonchi or wheezes noted. No increased work of breathing, no retractions or nasal flaring. Abdomen/GI: Soft, non-tender, with normal bowel sounds. No distension or tympany. No guarding or rebound. No evidence of tenderness throughout. 02:15 Back: pain, that is moderate, of the mid and lower back. 02:15 : Exam negative for acute changes. 02:15 Musculoskeletal/extremity: Exam is negative for acute changes. 02:15 Skin: Exam negative for rash. 02:15 Neuro: Orientation: is normal, Mentation: is normal, Memory: is normal, Cranial nerves: grossly normal, Motor: is normal. Vital Signs: 08/23 23:35 BP 103 / 73; Pulse 93; Resp 16; Temp 98.7(O); Pulse Ox 99% on R/A; Weight 49.9 kg (R); bb Height 5 ft. 0 in. (152.40 cm) (R); Pain 6/10; 23:38 BP 103 / 73; Pulse 92; Resp 16; Pulse Ox 100% ; rv 23:45 Temp 98.6; rv 08/24 00:00 BP 117 / 87; Pulse 91; Resp 16; Pulse Ox 100% ; rv 00:30 BP 104 / 71; Pulse 89; Resp 15; Pulse Ox 99% ; rv 01:00 BP 98 / 69; Pulse 83; Resp 17; Pulse Ox 100% ; rv 01:54 BP 101 / 73; Pulse 77; Resp 16; Temp 98.4; Pulse Ox 99% ; rv 08/23 23:35 Body Mass Index 21.48 (49.90 kg, 152.40 cm) bb Melina Coma Score: 08/23 23:30 Eye Response: spontaneous(4). Verbal Response: oriented(5). Motor Response: obeys bb commands(6). Total: 15. Trauma Score (Adult): 23:30 Eye Response: spontaneous(1); Verbal Response: oriented(1); Motor Response: obeys bb commands(2); Systolic BP: > 89 mm Hg(4); Respiratory Rate: 10 to 29 per min(4); Melina Score: 15; Trauma Score: 12 MDM: 23:38 Patient medically screened. pkl 08/24 02:26 Data reviewed: vital signs, nurses notes, lab test result(s), radiologic studies, CT pkl scan. ED course: Discussed lab. and CT scan results with patient. Advised follow up with PCP this week. May need MRI thoracic spines if not better. Patient under instructions. 08/23 23:44 Order name: CBC with Diff; Complete Time: 00:33 pkl 08/23 23:44 Order name: Chem 7; Complete Time: 00:33 pkl 08/23 23:44 Order name: CT Chest, Abdomen, Pelvis - W/Contrast pkl 08/24 00:10 Order name: Test, Serum; Complete Time: 00:56 bb 08/24 00:12 Order name: Urine Dipstick--Ancillary (enter results); Complete Time: 00:56 mw2 Administered Medications: 08/23 23:57 Drug: NS 0.9% 500 ml Route: IV; Rate: bolus; Site: right antecubital; rv 08/24 01:49 Follow up: IV Status: Completed infusion; IV Intake: 500ml rv 08/23 23:57 Drug: NS 0.9% 1000 ml Route: IV; Rate: 100 ml/hr; Site: right antecubital; rv 08/24 02:48 Follow up: IV Status: Order to discontinue infusion rv 00:47 Drug: TORadol 30 mg Route: IVP; Site: right antecubital; ca1 01:49 Follow up: Response: Pain is unchanged, physician notified rv 01:45 Drug: morphine 2 mg Route: IVP; Site: right antecubital; rv 02:48 Follow up: Response: Pain is decreased rv 02:30 Drug: [place] 5 mg-325 mg 1 tabs Route: PO; rv 02:48 Follow up: Response: Medication administered at discharge. rv Disposition: 08/24/18 02:29 Discharged to Home. Impression: Fractures T4 and T5. S/P Fall. - Condition is Stable. - Prescriptions for Ultram 50 mg Oral Tablet - take 1 tablet by ORAL route every 8 hours As needed; 30 tablet. - Work release form, Medication Reconciliation Form, Thank You Letter, Antibiotic Education, Prescription Opioid Use form. - Follow up: Vitaliy Parada MD; When: 2 - 3 days; Reason: Re-evaluation by your physician. - Problem is new. - Symptoms are unchanged. Signatures: Dispatcher [employer] EDMS Donato Bonlila MD MD pkl Diane Musa RN RN bb Mo Valente RN RN [facility], [place] RN RN [facility] Corrections: (The following items were deleted from the chart) 02:56 02:29 08/24/2018 02:29 Discharged to Home. Impression: Fractures T4 and T5. S/P Fall. rv Condition is Stable. Forms are Medication Reconciliation Form, Thank You Letter, Antibiotic Education, Prescription Opioid Use. Follow up: Vitaliy Parada; When: 2 - 3 days; Reason: Re-evaluation by your physician. Problem is new. Symptoms are unchanged. pkl
[2018-08-24] MEDS ORDERED: HYDROCODONE/APAP 5/325 MG TAB ONE (02:48)
[2018-08-24 04:39] VITALS: BP 101/73; TEMP 98.4; O2SAT 99
--- NOTE | 2018-08-24 09:56 | RAD REPORT ---
EXAM DESCRIPTION: CT Head Without Intravenous Contrast CT Cervical Spine Without Intravenous Contrast CLINICAL HISTORY: The patient is 61 years old and is Male; fall TECHNIQUE: Axial computed tomography images of the head/brain and cervical spine without intravenous contrast. Sagittal and coronal reformatted images were created and reviewed. This CT exam was pe rformed using one or more of the following dose reduction techniques: automated exposure control, a djustment of the mA and/or kV according to patient size, and/or use of iterative reconstruction techn ique. COMPARISON: None. FINDINGS: BRAIN: Mild prominence of the cerebral sulci and cisterns. Mild confluent periventricular white matter hypodensity. Left caudate head hypodensity, likely prior lacunar infarct. No hemorrhage. No extra axial collection, or herniation. VENTRICLES: Unremarkable. No ventriculomegaly. SKULL: No acute fracture. SINUSES: Unremarkable as visualized. No acute sinusitis. MASTOID AIR CELLS: Unremarkable as visualized. No mastoid effusion. VERTEBRAE: Reversal of the cervical lordosis centered at C5-6 with advanced C5-6 disc space narrow ing and reactive endplate changes as well as multiple deformity. No acute fracture. DISCS/SPINAL CANAL/NEURAL FORAMINA: Disc osteophyte complex at the level with mild canal stenosis and severe bilateral foraminal narrowing SOFT TISSUES: Unremarkable. VASCULATURE: Trace left carotid artery calcifications. IMPRESSION: 1. No acute intracranial hemorrhage, hydrocephalus or herniation. 2. No acute cervical spine fracture. 3. Mild cerebral volume loss, chronic small vessel ischemic changes and probable prior left caudate head lacunar infarct. If clinical concern for acute ischemia, consider MRI brain without contrast fo r further evaluation. 4. Advanced C5-6 degenerative changes as detailed above. Electronically signed by: Charles Morgan DO 08/23/2018 11:28 PM CDT Due to temporary technical issues with the PACS/Fluency reporting system, reports are being signed by the in house radiologist as a courtesy to ensure prompt reporting. The interpreting radiologist is f godfreyly responsible for the content of the report.
== END 2018-08-24 02:56 | disposition home or self-care (01) ==
LOC: ER 23:21
DX: S22.049A Unspecified fracture of fourth thoracic vertebra, initial encounter for closed fracture (principal); S22.059A Unspecified fracture of T5-T6 vertebra, initial encounter for closed fracture; V80.010A Animal-rider injured by fall from or being thrown from horse in noncollision accident, initial encounter; Y93.9 Activity, unspecified; Y92.9 Unspecified place or not applicable; F41.9 Anxiety disorder, unspecified; F32.9 Major depressive disorder, single episode, unspecified
CPT/HCPCS: 36415; 71260; 74177; 80048; 81003; 84703; 85025; 96361; 96374; 96375; 99284; J2270; J7030; Q9967

== ENCOUNTER 2022-09-17 23:29 | Emergency (ER) | payer OTHER, SELFPAY ==
--- OUTSIDE RECORDS SUMMARY | 2022-09-17 23:33 | XMS REPORT | Continuity of Care Document ---
:1990 Author Organization [facility] t Address [address] [place] [address] [address] [place] [address] Care Team Providers Name Role Phone Xander_Henrique Attending Clinician Unavailable Barry Attending Clinician Unavailable Kiersten Damon Attending Clinician Unavailable JACI MELVIN Attending Clinician Unavailable STEFANIE ARRIAGA Attending Clinician Unavailable AMILCAR ZUNIGA Attending Clinician Unavailable Aneudy Admitting Clinician Unavailable Barry Admitting Clinician Unavailable Kiersten Damon Admitting Clinician Unavailable AMILCAR ZUNIGA Admitting Clinician Unavailable Payers Payer Name Policy Type Policy Number Effective Date Expiration Date Aleshia [place] - [id number] [facility] 3 (HMO) [facility] [place] - [id number] [facility] - [id number] 2020 OUT OF STATE 00:00:00 Problems This patient has no known problems. Allergies, Adverse Reactions, Alerts Allergy Allergy Status Severity Reaction(s) Onset Inactive Treating Comm ents Source Name Type Date Date Clinician No Known DA Active U [facility] No Known DA Active U 2018-0 [facility] Allergie 1-21 [facility] 00:00: e 00 [facility] NO KNOWN Drug Active Univers ALLERGIE Class [facility] Medications This patient has no known medications. Procedures This patient has no known procedures. Encounters Start End Encounter Admission Attending Care Care Encounter Source Date/Time Date/Time Type Type Clinicians Facility Department ID 2022-07-15 2022-07-15 Outpatient Yan_W [facility] [id number] [place] 00:00[facility]00 [facility] 2022-07-15 2022-07-15 Outpatient Yan_W MMG MMG [id number] [place] 00:00:00 00:00:00 [facility] 2022-05-15 2022-05-15 Outpatient GC_SWHASA_R PRIV PRIV [id number] [facility] 00:00:00 00:00:00 amirez_C [id number] Medic al 2022-04-29 2022-04-30 Inpatient JIMBO Damon, [facility] MEDI.01 [id number] [facility] 09:52:00 14:13:00 Kiersten 16 [facility] 2020-08-15 2020-08-15 Outpatient Chantale MELVIN [facility] [id number] [facility] 13:30:00 13:30:00 JACI [facility] 2020-04-20 2020-04-20 Outpatient Chantale MELVIN [facility] [id number] Univers 11:15:00 11:15:00 JACI [facility] 2020-04-01 2020-04-01 Outpatient Chantale ARRIAGA [facility] [id number] Univers 16:40:00 16:40:00 STEFANIE [facility] 2019-12-11 2019-12-12 Inpatient Tono ZUNIGA [facility] MED 7502 [facility] 18:20:00 13:30:00 AMILCAR 2019-10-26 2019-10-26 Outpatient Chantale MELVIN [facility] [id number] Univers 13:45:00 13:45:00 JACI [facility] Results Test Description Test Time Test Comments Results Result Comments Source SURGICAL 2022-05-01 14:50:00 Test Item Value Reference Range Interpretation Comme nts SURGICAL RUN (test DATE: 05/01/22 [facility] PAGE 1 RUN TIME: 1450 Specimen Inquiry RUN USER: INTERFACE code = TIA SR) ENT: JUNE GALLARDO LOC: AMISHA U #: [id number] AGE/SX: 31/F ROOM: [facility] RE04/29/22REG DR: Kiersten Long MD : 89 BED: A DIS: 04/30/22 STATUS: DIS Cm TLOC: SPEC #: [id number] RECD: 04/29/22 STATUS: TOBY REJohn Paul #: [id number] DONNA: 04/29/22-[address]: Kiersten Damon MD EN TERED: 04/29/22 SP TYPE: SURGICAL OTHR DR: ORDERED: ANATOMIC SPEC, SPEC TRACK, [id number] PROC EDURES: [id number] (04/29/22) TISSUES: A. UTERUS W/WO TUBES OVARIES NON NEOPLASTIC/PROLAPSE - UT ERUS, CERVIX, BILATERAL TUBES FINAL DIAGNOSIS UTERUS, HYSTERECTOMY: - CERVIX - Focal high-grade squamous intraepithelial lesion (HSIL/CARLOS EDUARDO II and III) with focal extension into endocervical gland. - All margins - uninvolved. - Focal squamous metaplasia. - Parakeratosis. - ENDOMETRIUM - - Secretory endometrium, negative for hyperplasia or malignancy. - MYOMETRIUM AND SEROSA - No significant pathologic alterations. - FALLOPIAN TUBES, BILATERAL - No significant pathologic al terations. GROSS DESCRIPTION Specimen received in formalin, labeled with patient's name, MRN, da te of and uterus,cervix, bilateral tubes. It consists of a hysterectomy specimen with 2 separate fallopiantube segments weighing in aggregate 99 g. Uterus measures 8.7 cm in length fr om fundus todistal most portion of exocervix, 4.9 cm in maximum cornu to cornu with and 3.7 cmanteroposteriorly. Serosa is watters-brown smooth. Cervix is 3.1 cm in length and 3.3 cm ingreatest diameter. Os is slit-like and 1.2 cm across. Cervical canal has watters rugatedappearance. Endometri al cavity is 4.5 cm in length and 1.9 cm in maximum width. Endometrium is watters-pink foca lly polypoid appearing near the fundus and measures 0.1- 0.2 cmin thickness.Myometrium is watters- pink and up to 1.9 cm in thickness. Fallopian tube segmentseach with fimbria 1.6 cm and 2.5 cm in length and up to 0.4 cm in diameter. Serosa istan- brown smooth. Sectioning of both reveals p artially patent lumen. anterior cervix isinked green, posterior cervix is inked black and en docervical /lower uterine segmentresection margin inked orange. Utility Manager sections with entire cervixare submitted as follows: A 1-A2, A3- A4 12:00 to 3:00 cervix A 5-A 6, A 7-A8 3:00 to 6:00 cervix CONTINU ED ON NEXT PAGE RUN DATE: 05/01/22 [facility] PAGE 2 RUN TIME: 1451 Specimen Inquiry RUN USER: INTERFACE SPEC #: [id number] PATIENT: SAMIJUNE #[id number] (Continued) ------- GROSS DESCRIPTION (Panfilo sun) A9-A10 6:00 to 9:00 cervix A11-A 12, A13 -A14 9:00 to 12:00 cervix A15 anterior lo wer uterine segment longitudinal section A16 posterior lower uterine segment longitudinal section A17-A18 anterior endomyometrium, 1 full-thickness section each A19 -A20 posterior endomyometriu m, 1 full-thickness section each A21-A22 entire larger fallopian tube segment A23-A24 entire smaller fallopian tube [id number] Technical component performed at [facility] [address], [place] [address] Immunohistochemical stains and Special Stains are performed at [facility], [address] [place] [address], [address], [place] [address] Unles s gross only, the diagnosis is based upon microscopic examination. Immunohistochemistry: This t est was developed and its performance characteristicsdetermined by this laboratory. It has not been approved nor does it need approval by [place] FDA. Appropriate positive and negative contro ls are reviewed and judged to beacceptable. This laboratory is certified under the Clinical Laboratory ImprovementAmendments (CLIA-88) as qualified to perform high complexity clinical lab oratory testing. MICROSCOPIC DESCRIPTION Microscopic examination is performed and the findings a re incorporated in the diagnosis. CLINICAL INFORMATION 04/29/22, OUT OF BODY 1400P, IN FORMALIN 1454P, DYSPLASIA OF CERVIX, STAGE 3. Signed Erickson Hernandez 0 05/01/22 1450 END OF REPORT CBC W/AUTO [id number] 04:44:00 Test Item Value Reference Range Interpretation Comments WHITE BLOOD CELL (test code = WBC) 13.8 K/mm3 6.5-12.3 H RED BLOOD CELL (test code = RBC) 3.41 M/mm3 3.51-4.69 L HEMOGLOBIN (test code = HGB) 10.2 g/dL 10.1-13.8 N HEMATOCRIT (test code = HCT) 31.5 % 32.5-41.8 L MEAN CELL VOLUME (test code = MCV) 92.4 fL 84.6-96.6 N MEAN CELL HGB (test code = MCH) 29.9 pg 27.3-33.9 N MEAN CELL HGB CONCETRATION (test 32.4 gm/dL 32.0-34.2 N code = MCHC) RED CELL DISTRIBUTION WIDTH (test 11.9 % 12.2-16.3 L code = RDW) PLATELET COUNT (test code = PLT) 252 K/mm3 134-363 N MEAN PLATELET VOLUME (test code = 10.5 fL 9.2-12.7 N MPV) NEUTROPHIL % (test code = NT%) 84.0 % 57.9-77.3 H LYMPHOCYTE % (test code = LY%) 8.4 % 14.5-29.7 L MONOCYTE % (test code = MO%) 7.1 % 3.6-10.2 N EOSINOPHIL % (test code = EO%) 0.0 % 0.0-3.0 N BASOPHIL % (test code = BA%) 0.1 % 0.1-0.9 N NEUTROPHIL # (test code = NT#) 11.6 K/mm3 LYMPHOCYTE # (test code = LY#) 1.2 K/mm3 MONOCYTE # (test code = MO#) 1.0 K/mm3 EOSINOPHIL # (test code = EO#) 0 K/mm3 BASOPHIL # (test code = BA#) 0.0 K/mm3 RBC MORPHOLOGY REQUIRED (test code NORMAL NORMAL = RBCM) PLATELET MORPHOLOGY REQUIRED (test NORMAL NORMAL code = PLTMR) UR HCG [id number] 11:10:00 Test Item Value Reference Range Interpretation Comments UR HCG QUAL (test NEGATIVE 1. Very di lute urine code = HCGQLU) specimens, as indicated by a lowspecific g ravity, may not contain rep resentative levels ofhCG. 2 . False negative result s may occur when the levels of hCGare below the sensi tivity level of the test. If is still suspec pradeep, a first morningurine sp ecimen should be colle cted 48 hours later and tested. HGB [id number] 14:15:00 Test Item Value Reference Range Interpretation Comments HEMOGLOBIN (test code = HGB) 11.5 g/dL 10.1-13.8 N HEMATOCRIT (test code = HCT) 35.3 % 32.5-41.8 N UR HCG [id number] 14:05:00 Test Item Value Reference Range Interpretation Comments UR HCG QUAL (test NEGATIVE 1. Very di lute urine code = HCGQLU) specimens, as indicated by a lowspecific g ravity, may not contain rep resentative levels ofhCG. 2 . False negative result s may occur when the levels of hCGare below the sensi tivity level of the test. If is still suspec pradeep, a first morningurine sp ecimen should be colle cted 48 hours later and tested. Notes Date/Time Note Provider Source 2022-04-30 13:25:00-00:00 [facility] ([facility]) Discharge Summary REPORT#:[id number] REPORT STATUS: Signed DATE:04/30/22 TIME: 1325 PATIENT: JUNE GALLARDO UNIT #: [id number] ROOM/BED: [address] : 91 AGE: 31 SEX: F ATTEND: Juan Luis Damon MD ADM AUTHOR: Kiersten Damon MD * ALL edits or amendments must be made on the nxtControl/computer document * PCP PCP PCP: PCP: Kiersten Damon MD General Information Problem List/A P: 1. Menometrorrhagia 2. 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 [ CARLOS EDUARDO 3. menometarrahgia] 2. s/p TVH-BS 3. Benign postoperative course HPI: This is a 31 WF with CIN3 and menometa rrhgia not desiring future fertility. For more information, please refer to the admission note. Hospital course: The patient was admitte d to [facility] where consent was signed and placed in the chart. Labs: []. All questions and concerns were addressed. The patient had an uncomplicated Surgery/finding s: [normal small uterus and adnexa]; please refer to operative report for ad ditional details. The patient was taken to the postsurgica l unit in stable condition. Her course was uncomplicated and she was sent home with marcela quate pain control on oral medications, the ability to ambulate, spontaneou sly void, and eat without difficulty. She was also passing flatus and was on room air. Postoperative Hct was []. There were no s igns or symptoms of infection or hemorrhage at time of discharge. All questions and concerns were ad dressed prior to discharge Disposition: The patient was discharged home on POD#1] with instructions to limit heavy lifting to <15 lb for 4 weeks, inser t nothing in the vagina for 6 weeks including tampons, int ercourse, and douching, and to not drive while using narcotics. Pt was advised to call her MD for T>100.4, increased vaginal bleeding >1 pad/hr, shortness of marybel th or chest pain, increased incisional pain, redness , or discharge, increased abdominal pain or leg pain, or any other concerns. Patient was sent home on a regular diet. Discharge medications included [Resume prior med ications. Ibuprofen 600mg q 6 hors #40 for pain 1-5. tramadol 50mg q 6 hrs for pain 5-10]. Pt advised to follow up in 2 weeks time for a wound ch jesús as well as in 6 weeks time for her postoperative check with her physician Pt. condition on discharge: stable Med Rec PCP PCP: PCP: Kiersten Damon MD Med Rec Discharge meds: Continue taking these medications: busPIRone (BUSPIRONE) 15 MG TAB 7.5 MILLIGRAM ORAL TWICE DAILY. busPIRone (BUSPIRONE) 10 MG TAB 10 MILLIGRAM ORAL TWICE DAILY. ESCITALOPRAM (LEXAPRO) 20 MG TAB 20 MILLIGRAM ORAL DAILY. PRAZOSIN (MINIPRESS) 2 MG CAP DAILY. traZODone (DESYREL) 150 MG TAB 150 MILLIGRAM ORAL BEDTIME. PROPRANOLOL (INDERAL) 20 MG TAB as needed for ANXIETY hydrOXYzine PAMOATE (VISTARIL) 50 MG CAP as needed for ANXIETY ACETAMINOPHEN (TYLENOL) 500 MG TAB 500 MILLIGRAM ORAL EVERY 4 HOURS NEEDED. as needed for PAIN Start taking the following new medications: IBUPROFEN (MOTRIN) 800 MG TAB 800 MILLIGRAM ORAL EVERY 8 HOURS. Qty = 40 Refills = 1 traMADol (ULTRAM) 50 MG TAB 50 MILLIGRAM ORAL EVERY 6 HOURS NEEDED. as n eeded for PAIN SCALE 7-10 ( USE 1ST) Qty = 10 No Refills Objective VS/I O Last Documented: Result Date Time Pulse Ox 98 04/30 112 B/P 101/66 04/30 112 B/P Mean 78.0 04/30 112 Temp 98.4 04/30 112 Pulse 90 04/30 1121 Resp 18 04/30 112 O2 Delivery Room air 04/30 0335 O2 Flow Rate 10 04/29 1530 24 hour I O ending at 0700: 04/30 0700 04/29 1900 Intake Total 1100.00 1300.00 Output Total 850 750 Balance 250.00 550.00 Intake, IV 400.00 1300.00 Intake, Oral 700 Output, 50 Estimated Blood Loss Output, Urine 850 700 PATIENT WEIGHT: Weight (lb): 157 Weight (oz): 3.03 Weight (kg): 71.300 General appearance: alert, awake, oriented Cardiovascular: regular rate rhythm Respiratory: clear to auscultation GI: soft, non-tender, no guarding, no rebound, n o distention Extremities: no calf tenderness Neuro/COPY MANAGER: alert, oriented X 3 Considered stroke alert: no Results Findings/Data: Laboratory Tests: 04/30 0340 Hematology WBC (6.5 - 12.3 K/mm3) 13.8 H RBC (3.51 - 4.69 M/mm3) 3.41 L Hgb (10.1 - 13.8 g/dL) 10.2 Hct (32.5 - 41.8 %) 31.5 L MCV (84.6 - 96.6 fL) 92.4 MCH (27.3 - 33.9 pg) 29.9 MCHC (32.0 - 34.2 gm/dL) 32.4 RDW (12.2 - 16.3 %) 11.9 L Plt Count (134 - 363 K/mm3) 252 MPV (9.2 - 12.7 fL) 10.5 Neut % (Auto) (57.9 - 77.3 %) 84.0 H Lymph % (Auto) (14.5 - 29.7 %) 8.4 L [place] % (Auto) (3.6 - 10.2 %) 7.1 Eos % (Auto) (0.0 - 3.0 %) 0.0 Baso % (Auto) (0.1 - 0.9 %) 0.1 Neut # (Auto) (K/mm3) 11.6 Lymph # (Auto) (K/mm3) 1.2 [place] # (Auto) (K/mm3) 1.0 Eos # (Auto) (K/mm3) 0 Baso # (Auto) (K/mm3) 0.0 Results: labs reviewed Discharge Instructions PCP )( Discharge to: Home/Self Care Discharge Instructions Additional Discharge Routines: Attending Follow- Up )( Diet: Regular )( Activity: No Strenuous Activity )( Wound/dressing care: OK to shower tomorrow Prescriptions: e-prescribe Rx drug database reviewed: yes Discharge management: less than 30 mins Time spent: Time spent on patient care (minutes): 20 >50% spent on counseling/coordination of care: yes Follow-up Appointments Attending Physician: Attending Physician: Kiersten Damon MD Phone: [phone] Attending physician follow up timeframe: In 4-5 weeks Electronically Signed by Kiersten Damon MD n 04/30/22 at 1332 RPT #:[id number] END OF REPORT 2022-04-29 14:34:00-00:00 [facility] ([facility]) Full Op Note REPORT#:[id number] REPORT STATUS: Signed DATE:04/29/22 TIME: 1434 PATIENT: JUNE GALLARDO UNIT #: [id number] ROOM/BED: : 91 AGE: 31 SEX: F ATTEND: Juan Luis Damon MD ADM AUTHOR: Kiersten Damon MD * ALL edits or amendments must be made on the el OQO/computer document * Operative Report ORM Surgeries: Surgery Date and Time: 04/29/2022 1200 Proposed Primary Procedure: HYSTERECTOMY VAGINA L BS Start date: 04/29/22 Start time: 1321 Pre-procedure diagnosis: CIN3 Menometarrhagia Post-procedure diagnosis: same Procedures performed: Total Vaginal hysaterectomy Bilateral salpingectomies Technique/Procedure: Rebviewed procedure with risk/benefits with tia ent. Desirng to proceed with surgery. After identification patient taken to O R. Placed in supine pposition and General anesthesia admin istered by Anesthesia staff. Patient then placed in dorsolithotomy posistin for vaginal procedure. P atient prepped and draped. Time out was performed with procedure idenifued with risk/complications, length of procedure. All participants identifed and agr eed with planned procedure. Weighted speculum placed in posterior vagina aft er patient placed in trendelberg. Cerivx grasped anterior and posteri or lips with [place] clamps. 10 cc o a dilute pretressin 20 i n 30cc of saline was injected into the cervix at 2 10 o'clock for hemostasis. Using the Bovie a circumferentil incision was made into the vagina overly ing the cul de sacs. The posterior cul de sac was entered sharply with Giles scissors an d the long duck speculum was placed. Uterosacral ligaments were ident ified, clapmed, cut and ligated with 0 Vicryl suture and tagged. The bladder pillars we re clamped cut and ligated. The anterior culde sac was d issected and entered. The right angle retractor was placed in this space. Successive pedicle s were taken incoporating the Cardinal ligaments, uterus veslees and up to the roud lig ament. The uteru was then flipped with a [place] e clmp grasping the fundus and delivered through the introitus. The Round ligament Utero ovarian and fallopian tube were clapmed with a haey and the specimen containing the Uter us and cervix was removed. These pedicles were doubly ligaated with 0 Vicryl and tagged with small hner clmaps. The Fallopian tues were identified, gras ped with a [place] clampy and the clamped across the mesosalpinx with a Serrot clamp and removed. These pedicles were ligated. All pedicles were inspece d and found to be hemostatic. The area was irrigated. Short duck bill speculum then replaced the the long duck bill. The peritoneum was identified and dane sed with apurse string suture of 2-0 Vicryl. Angle stitches to support the vag inal cuff were placed going through anterior vagina, uterosacral com plex and posterior vagina. The vaginal cuff was then closed anterio r/posterior with interlocking stitches of 0 Vicryl. Vagina irrigated again and hemostatic. The garcia was placed in the vagina and return of Pyridium tinged urine noted. All lap, needle, and strument counts correct x2. Patient toleratedprocedure well. Debriefing was performed. Two surgical assistants were required to to performe this procedure safely for retraction, suturing and cutting suture. Primary Surgeon: Kiersten Damon M.D. Co-surgeon: Irlanda flores M.D. Grip Wrapper(s): Akshat Mcintyre, dalia Michelle, R4 Anesthesiologist: Francisco Javier Quintanilla Anesthesia: general anesthesia Indications: CIN3 Menometarrahgia Operative findings: Small uterus with good descent under anesthesia. Normal Tubes/ovaries Complications: none Estimated blood loss in ml's: 50cc Blood products: none Specimens removed/altered: uterus with cervix at tached. Bilateral fallopian tubes Cultures sent: No Drain(s)/tube(s): garcia Implant(s): none Fluids: 800cc Tourniquet: n/a Urine output: 300cc Approach: vaginal Disposition: PACU, MEDSURG Counts: Sponge count: correct Instrument count: correct Needle count: correct Wound class: clean-contaminated Dictation number: n/a Electronically Signed by Kiersten Damon MD 04/29/22 at 1459 [facility] #:[id number] END OF REPORT
[2022-09-18] MEDS ORDERED: KETOROLAC 30 MG/ML INJ ONE (00:27)
[2022-09-18 00:28] LABS: Absolute Lymphocytes (CBC) 1.6 K/uL (0.7-4.9); Hematocrit 34.5 % (36.0-45.0); Lymphocytes % 28.6 % (15.3-44.8); MCV 90.9 fL (80-100); MPV 8.1 fL (7.6-11.3)
[2022-09-18 00:29] LABS: Protime INR 0.96
[2022-09-18 00:52] LABS: Troponin High Sensitivity 3.2 pg/mL (<58.9)
[2022-09-18 00:53] LABS: Potassium 3.9 mEq/L (3.5-5.1)
[2022-09-18] MEDS ORDERED: MORPHINE 4 MG/ML SYR ONE ×2 (01:01→02:29)
[2022-09-18] MEDS ORDERED: dexAMETHasone 10 MG/ML VIAL ONE (01:32)
[2022-09-18] MEDS ORDERED: DIAZEPAM 10 MG/2 ML INJ SYRINGE ONE (01:32)
--- NOTE | 2022-09-18 03:38 | EDPHYS ---
Physician Documentation [facility] Name: Shital Ramirez Age: 31 yrs Sex: Female : 1990 Arrival Date: 09/17/2022 Time: 23:29 Bed 18 Private MD: ED Physician Melvin Barth HPI: 09/18 00:05 This 31 yrs old Female presents to ER via Ambulatory with complaints of Feet Swelling, cp Leg Swelling, Back Pain. 00:05 The patient presents with pain that is acute, with no known mechanism of injury. The cp symptoms are located in the low back. Associated signs and symptoms: Pertinent positives: leg pain and lower extremity swelling, Pertinent negatives: abdominal pain, chest pain, constipation, dysuria, fever, incontinence, numbness. 00:05 Severity of symptoms: in the emergency department the symptoms are unchanged, despite cp home interventions. 00:05 Onset: The symptoms/episode began/occurred for past couple months. 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 - Social history:: Smoking status: Reported history of juuling and/or vaping. ROS: 09/18 00:10 Constitutional: Negative for body aches, chills, fever, poor PO intake. cp 00:10 Eyes: Negative for injury, pain, redness, and discharge. cp 00:10 Neck: Negative for pain with movement, pain at rest, stiffness. 00:10 Cardiovascular: Positive for edema, Negative for chest pain, palpitations. 00:10 Respiratory: Negative for cough, wheezing. 00:10 Abdomen/GI: Negative for abdominal pain, nausea, vomiting, and diarrhea. 00:10 Back: Positive for pain at rest, pain with movement, Negative for injury or acute deformity. 00:10 MS/extremity: Positive for pain, swelling, tenderness, of the right foot, left foot, right leg and left leg. 00:10 Neuro: Negative for altered mental status, dizziness, headache, weakness. 00:10 All other systems are negative. Exam: 00:15 Constitutional: The patient appears in no acute distress, alert, awake, cp non-diaphoretic, non-toxic, well developed, well nourished, uncomfortable. 00:15 Head/Face: Normocephalic, atraumatic. cp 00:15 Eyes: Periorbital structures: appear normal, Conjunctiva: normal, no exudate, no injection, Sclera: no appreciated abnormality, Lids and lashes: appear normal, bilaterally. 00:15 ENT: External ear(s): are unremarkable, Nose: is normal, Mouth: Lips: moist, Oral mucosa: pink and intact, moist, Posterior pharynx: is normal, airway is patent, no erythema, no exudate. 00:15 Chest/axilla: Inspection: normal. 00:15 Cardiovascular: Rate: normal, Rhythm: regular, Edema: pedal edema, that is mild, ankle edema, that is mild, JVD: is not appreciated. 00:15 Respiratory: the patient does not display signs of respiratory distress, Respirations: normal, no use of accessory muscles, no retractions, labored breathing, is not present, Breath sounds: are clear throughout, no decreased breath sounds, no stridor, no wheezing. 00:15 Abdomen/GI: Inspection: abdomen appears normal, Bowel sounds: active, all quadrants, Palpation: abdomen is soft and non-tender, in all quadrants. 00:15 Back: pain, that is moderate, of the low back area and mid back area, ROM is painful, with all movement. 00:15 Neuro: Orientation: to person, place \T\ time. Mentation: is normal, Motor: moves all fours, strength is normal, Sensation: is normal. Vital Signs: 09/17 23:50 BP 124 / 96; Pulse 77; Resp 18; Temp 97.5; Pulse Ox 99% ; Weight 81.65 kg; Height 5 ft. vc1 0 in. ; Pain 10/10; 09/18 00:00 BP 123 / 81; Pulse 72; Resp 18; Pulse Ox 98% ; vc1 02:00 BP 116 / 85; Pulse 73; Resp 11; Pulse Ox 98% on R/A; vc1 03:00 BP 112 / 67; Pulse 71; Resp 13; Pulse Ox 93% ; vc1 09/17 23:50 Body Mass Index 35.15 (81.65 kg, 152.4 cm) vc1 09/17 23:50 Pain Scale: Adult vc1 MDM: 09/17 23:38 Patient medically screened. [facility] 09/18 03:00 Data reviewed: vital signs, nurses notes, lab test result(s), radiologic studies, plain cp films, ultrasound. 03:00 Differential diagnosis: ruptured disc, DVT, pulmonary edema, CHF, pulmonary embolism. cp Awaiting: CT scan results. Transition of care: After a detail discussion of the patient's case, care is transferred to Melvin Barth MD. 09/17 23:59 Order name: Basic Metabolic Panel; Complete Time: 01:15 09/18 01:15 Interpretation: Normal except: CL 108; CA 8.2. 09/17 23:59 Order name: CBC with Diff; Complete Time: 00:50 09/18 00:50 Interpretation: Normal except: RBC 3.80; HGB 11.4; HCT 34.5. 09/17 23:59 Order name: Magnesium; Complete Time: 01:15 09/17 23:59 Order name: NT PRO-BNP; Complete Time: 01:15 09/18 01:15 Interpretation: Abnormal: NT PRO-BNP 268. 09/17 23:59 Order name: PT-INR; Complete Time: 00:50 09/17 23:59 Order name: Troponin HS; Complete Time: 01:15 09/18 01:16 Interpretation: Reviewed. 09/17 23:59 Order name: Urinalysis W/Microscopic 09/17 23:59 Order name: XRAY Chest (1 view) 09/17 23:59 Order name: US Extremity Venous W Compression Donato 09/18 01:42 Order name: CT Chest For PE Angio 09/18 01:42 Order name: CT Abd/Pelvis - IV Contrast Only 09/17 23:59 Order name: EKG; Complete Time: 00:00 09/17 23:59 Order name: Cardiac monitoring; Complete Time: 00:24 09/17 23:59 Order name: EKG - Nurse/Tech; Complete Time: 00:24 09/17 23:59 Order name: IV Saline Lock; Complete Time: 00:24 09/17 23:59 Order name: Labs collected and sent; Complete Time: 00:24 09/17 23:59 Order name: O2 Per Protocol; Complete Time: 00:24 cp 09/17 23:59 Order name: O2 Sat Monitoring; Complete Time: 00:24 cp Administered Medications: 09/17 23:59 CANCELLED (Physician Discretion): HYDROcodone-acetaminophen PO 10 mg-325 mg 1 tabs PO cp once 09/18 00:22 Drug: Ketorolac IVP 15 mg Route: IVP; Site: right antecubital; vc1 00:55 Drug: morphine IVP or IV 4 mg Route: IVP; Infused Over: 4 mins; Site: right antecubital;vc1 01:27 Drug: Decadron - Dexamethasone IVP 10 mg Route: IVP; Site: right antecubital; vc1 01:27 Drug: Diazepam IVP 2 mg Route: IVP; Site: right antecubital; vc1 02:26 Drug: morphine IVP or IV 4 mg Route: IVP; Infused Over: 4 mins; Site: right antecubital;vc1 Disposition Summary: 09/18/22 03:37 Discharge Ordered Location: Home soha Problem: new soha Symptoms: have improved soha Condition: Stable soha Diagnosis - Edema, unspecified soha - Low back pain soha Followup: soha - With: Private Physician - When: 2 - 3 days - Reason: Recheck today's complaints, Continuance of care, Re-evaluation by your physician Discharge Instructions: - Discharge Summary Sheet soha - Acute Back Pain, Adult soha - Edema soha - Musculoskeletal Pain soha - Edema, [id number] soha - Peripheral Edema soha Forms: - Medication Reconciliation Form soha - Thank You Letter soha - Antibiotic Education soha - Prescription Opioid Use [facility] - [email or web address] [facility] Prescriptions: - Ibuprofen 600 mg Oral Tablet - take 1 tablet by ORAL route every 6 hours As needed take with food; 30 tablet; soha Refills: 0, Product Selection Permitted - Medrol (Ricky) 4 mg Oral Tablets, Dose Pack - take 1 tablet by ORAL route as directed - follow package instructions; 1 soha packet; Refills: 0, Product Selection Permitted - Cyclobenzaprine 5 mg Oral Tablet - take 1 tablet by ORAL route 3 times per day As needed; 15 tablet; Refills: 0, soha Product Selection Permitted Signatures: Dispatcher [employer] EDMelvin Brooks MD MD cha Page, Corey, PA PA cp Calcote, Wanda, RN RN vc1 Corrections: (The following items were deleted from the chart) 09/17 23:59 23:59 HYDROcodone-acetaminophen PO 10 mg-325 mg 1 tabs PO once ordered. cp cp
--- NOTE | 2022-09-18 03:38 | ER ---
Nurse's Notes [facility] Name: Shital Ramirez Age: 31 yrs Sex: Female : 1990 Arrival Date: 09/17/2022 Time: 23:29 Bed 18 Private MD: Diagnosis: Edema, unspecified;Low back pain Presentation: 09/17 23:50 Chief complaint: Patient states: "I started having feet swelling and lower back pain vc1 that shoots down both of my legs". Coronavirus screen: Vaccine status: Patient reports being unvaccinated. Client denies travel out of the [place] in the last 14 days. At this time, the client does not indicate any symptoms associated with coronavirus-19. Ebola Screen: Patient negative for fever greater than or equal to 101.5 degrees Fahrenheit, and additional compatible Ebola Virus Disease symptoms Patient denies exposure to infectious person. Patient denies travel to an Ebola-affected area in the 21 days before illness onset. No symptoms or risks identified at this time. Initial Sepsis Screen: Does the patient meet any 2 criteria? No. Patient's initial sepsis screen is negative. Does the patient have a suspected source of infection? No. Patient's initial sepsis screen is negative. Risk Assessment: Do you want to hurt yourself or someone else? Patient reports no desire to harm self or others. Onset of symptoms is unknown. 23:50 Method Of Arrival: Ambulatory vc1 23:50 Acuity: AYE 3 vc1 Triage Assessment: 09/18 00:00 General: Appears in no apparent distress. uncomfortable, Behavior is calm, cooperative, vc1 appropriate for age. Pain: Complains of pain in low back area, left low back, right leg and left leg Pain radiates to right leg and left leg Pain currently is 10 out of 10 on a pain scale. 00:00 EENT: No deficits noted. No signs and/or symptoms were reported regarding the EENT vc1 system. Neuro: Level of Consciousness is awake, alert, obeys commands, Oriented to person, place, time, situation, Appropriate for age. Cardiovascular: Edema is 1+ to left ankle, left foot, left toes, right ankle, right foot and right toes. Respiratory: Airway is patent Respiratory effort is even, unlabored, Respiratory pattern is regular, symmetrical. GI: No deficits noted. No signs and/or symptoms were reported involving the gastrointestinal system. : No deficits noted. No signs and/or symptoms were reported regarding the genitourinary system. Derm: No deficits noted. No signs and/or symptoms reported regarding the dermatologic system. Musculoskeletal: Reports pain in right leg and left leg. 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 - Social history:: Smoking status: Reported history of juuling and/or vaping. Screenin:58 [facility] ED Fall Risk Assessment (Adult) History of falling in the last 3 months, vc1 including since admission No falls in past 3 months (0 pts) Confusion or Disorientation No (0 pts) Intoxicated or Sedated No (0 pts) Impaired Gait No (0 pts) Mobility Assist Device Used No (0 pt) Altered Elimination No (0 pt) Score/Fall Risk Level 0 - 2 = Low Risk Oriented to surroundings, Maintained a safe environment, Educated pt \\T\\ family on fall prevention, incl call for assistance when getting out of bed. Abuse screen: Denies threats or abuse. Nutritional screening: No deficits noted. Tuberculosis screening: No symptoms or risk factors identified. Assessment: 23:40 Neuro: Level of Consciousness is awake, alert, obeys commands, Oriented to person, vc1 place, time, situation, Appropriate for age. 09/18 00:39 Reassessment: No changes from previously documented assessment. Patient and/or family vc1 updated on plan of care and expected duration. Pain level reassessed. Patient is alert, oriented x 3, equal unlabored respirations, skin warm/dry/pink. Pain: Complains of pain in low back area Pain radiates to right leg and left leg Pain currently is 1 out of 10 on a pain scale. 02:11 Reassessment: No changes from previously documented assessment. Patient and/or family vc1 updated on plan of care and expected duration. Pain level reassessed. Patient is alert, oriented x 3, equal unlabored respirations, skin warm/dry/pink. Patient states symptoms have not improved. 03:00 Reassessment: No changes from previously documented assessment. Patient and/or family vc1 updated on plan of care and expected duration. Pain level reassessed. Patient is alert, oriented x 3, equal unlabored respirations, skin warm/dry/pink. pt states swelling has decreased. Vital Signs: 09/17 23:50 BP 124 / 96; Pulse 77; Resp 18; Temp 97.5; Pulse Ox 99% ; Weight 81.65 kg; Height 5 ft. vc1 0 in. ; Pain 10/10; 09/18 00:00 BP 123 / 81; Pulse 72; Resp 18; Pulse Ox 98% ; vc1 02:00 BP 116 / 85; Pulse 73; Resp 11; Pulse Ox 98% on R/A; vc1 03:00 BP 112 / 67; Pulse 71; Resp 13; Pulse Ox 93% ; vc1 09/17 23:50 Body Mass Index 35.15 (81.65 kg, 152.4 cm) vc1 09/17 23:50 Pain Scale: Adult vc1 ED Course: 09/17 23:35 Patient arrived in ED. ja2 23:43 Melvin Clark PA is PHCP. cp 23:44 Melvin Barth MD is Attending Physician. cp 23:50 Wanda Hernandez, YONG is Primary Nurse. vc1 23:56 Triage completed. vc1 23:57 Arm band placed on right wrist. vc1 09/18 00:00 Patient has correct armband on for positive identification. Client placed on continuous vc1 cardiac and pulse oximetry monitoring. NIBP monitoring applied. 00:18 XRAY Chest (1 view) In Process Unspecified. EDMS 00:44 US Extremity Venous W Compression Donato In Process Unspecified. EDMS 03:04 CT Chest For PE Angio In Process Unspecified. EDMS 03:04 CT Abd/Pelvis - IV Contrast Only In Process Unspecified. EDMS 03:51 No provider procedures requiring assistance completed. IV discontinued, intact, vc1 bleeding controlled, No redness/swelling at site. Pressure dressing applied. Administered Medications: 09/17 23:59 CANCELLED (Physician Discretion): HYDROcodone-acetaminophen PO 10 mg-325 mg 1 tabs PO cp once 09/18 00:22 Drug: Ketorolac IVP 15 mg Route: IVP; Site: right antecubital; vc1 00:55 Drug: morphine IVP or IV 4 mg Route: IVP; Infused Over: 4 mins; Site: right antecubital;vc1 01:27 Drug: Decadron - Dexamethasone IVP 10 mg Route: IVP; Site: right antecubital; vc1 01:27 Drug: Diazepam IVP 2 mg Route: IVP; Site: right antecubital; vc1 02:26 Drug: morphine IVP or IV 4 mg Route: IVP; Infused Over: 4 mins; Site: right antecubital;vc1 Medication: 00:40 VIS not applicable for this client. vc1 Outcome: 03:37 Discharge ordered by . soha 03:54 Discharged to home via wheelchair, with family. vc1 03:54 Condition: good 03:54 Discharge instructions given to patient, Instructed on discharge instructions, follow up and referral plans. medication usage, Demonstrated understanding of instructions, follow-up care, medications, Prescriptions given X 3. 03:54 Patient left the ED. vc1 Signatures: Dispatcher [employer] EDMS Melvin Barth MD MD cha Page, Corey, PA Megha Santana cp, Vanessa RN RN vc1
[2022-09-18 04:00] VITALS: TEMP 97.5
[2022-09-18 04:03] VITALS: BP 112/67; O2SAT 93
[2022-09-18 04:51] LABS: Specific Gravity 1.024 (1.005-1.030); Urine Bacteria None Seen /HPF (<20); Urine Bilirubin NEGATIVE (Negative); Urine Blood Negative (Negative); Urine Clarity Clear (Clear); Urine Color Colorless (Yellow); Urine Glucose NEGATIVE (Negative); Urine Mucus Slight /HPF (None Seen); Urine Protein NEGATIVE (Negative); Urine Urobilinogen Normal (Normal)
--- NOTE | 2022-09-18 12:26 | RAD REPORT ---
EXAM DESCRIPTION: RAD - Chest Single View - 09/18/2022 12:16 am CLINICAL HISTORY: The patient is 31 years old and is Female; SWELLING TECHNIQUE: Frontal view of the chest. COMPARISON: No relevant prior studies available. FINDINGS: Lungs: Unremarkable. No consolidation. Pleural space: Unremarkable. No pneumothorax. Heart: Unremarkable. Mediastinum: Unremarkable. Bones/joints: Unremarkable. IMPRESSION: No acute findings in the chest. Electronically signed by: Chad Domínguez MD 09/18/2022 12:31 AM CDT Due to temporary technical issues with the PACS/Fluency reporting system, reports are being signed by the in house radiologist without review as a courtesy to ensure prompt reporting. The interpreting r adiologist is fully responsible for the content of the report.
--- NOTE | 2022-09-18 12:39 | RAD REPORT ---
EXAM DESCRIPTION: CT - Abdomen Pelvis W Contrast - 09/18/2022 3:43 am CLINICAL HISTORY: The patient is 31 years old and is Female; SOB TECHNIQUE: Axial computed tomographic angiography images of the chest with intravenous contrast. S agittal and coronal reformatted images were created and reviewed. This CT exam was performed using one or more of the following dose reduction techniques: automated exposure control, adjustment of t he mA and/or kV according to patient size, and/or use of iterative reconstruction technique. MIP re constructed images were created and reviewed. COMPARISON: No relevant prior studies available. FINDINGS: Pulmonary arteries: Unremarkable. No pulmonary embolism. Aorta: No acute findings. No thoracic aortic aneurysm. Lungs: Unremarkable. No mass. No consolidation. Pleural space: Unremarkable. No significant effusion. No pneumothorax. Heart: Unremarkable. No cardiomegaly. No significant pericardial effusion. No evidence of R V dysfunction. Bones/joints: No acute fracture. No dislocation. Soft tissues: Unremarkable. Lymph nodes: Unremarkable. No enlarged lymph nodes. * A single impression for all exams can be found at the end of this report EXAM DESCRIPTION: CT Abdomen and Pelvis With Intravenous Contrast CLINICAL HISTORY: The patient is 31 years old and is Female; SOB TECHNIQUE: Axial computed tomography images of the abdomen and pelvis with intravenous contrast. S agittal and coronal reformatted images were created and reviewed. This CT exam was performed using one or more of the following dose reduction techniques: automated exposure control, adjustment of t he mA and/or kV according to patient size, and/or use of iterative reconstruction technique. COMPARISON: No relevant prior studies available. FINDINGS: Lung bases: Unremarkable. No mass. No consolidation. ABDOMEN: Liver: Unremarkable. No mass. Gallbladder and bile ducts: Unremarkable. No calcified stones. No ductal dilation. Pancreas: Unremarkable. No mass. No ductal dilation. Spleen: Unremarkable. No splenomegaly. Adrenals: Unremarkable. No mass. Kidneys and ureters: 1.4 cm simple cyst in the right kidney. No follow-up imaging is recommended. No hydronephrosis. Stomach and bowel: Unremarkable. No obstruction. No mucosal thickening. PELVIS: Appendix: No findings to suggest acute appendicitis. Bladder: Bladder is distended. Reproductive: Uterus is not seen. ABDOMEN and PELVIS: Intraperitoneal space: Unremarkable. No free air. No significant fluid collection. Bones/joints: Schmorl's node at L4 with up to 50% loss of height. No acute fracture. No dislocation. Soft tissues: Unremarkable. Vasculature: Unremarkable. No abdominal aortic aneurysm. Lymph nodes: Unremarkable. No enlarged lymph nodes. * A single impression for all exams can be found at the end of this report IMPRESSION: CT Angiography Chest With Intravenous Contrast: No acute finding in the chest. No evidence of pulmonary embolism. CT Abdomen and Pelvis With Intravenous Contrast: No acute finding in the abdomen/pelvis. Electronically signed by: Chad Domínguez MD 09/18/2022 3:33 AM CDT Due to temporary technical issues with the PACS/Fluency reporting system, reports are being signed by the in house radiologist without review as a courtesy to ensure prompt reporting. The interpreting r adiologist is fully responsible for the content of the report.
--- NOTE | 2022-09-18 12:56 | RAD REPORT ---
EXAM DESCRIPTION: US - Extrem Venous W Compress Donato - 09/18/2022 12:43 am CLINICAL HISTORY: The patient is 31 years old and is Female; Swelling;Pain TECHNIQUE: Real-time duplex ultrasound scan of the bilateral lower extremity veins integrating B-mod e two-dimensional vascular structure, Doppler spectral analysis, color flow Doppler imaging and compr ession. COMPARISON: No relevant prior studies available. FINDINGS: RIGHT DEEP VEINS: Unremarkable. No DVT in the right common femoral, femoral, proximal deep femoral or popliteal veins. The veins demonstrate normal color flow, are normally compressible , with normal phasic flow and/or augmentation response. RIGHT SUPERFICIAL VEINS: Unremarkable. No thrombus in the visualized right great saphenous vein . LEFT DEEP VEINS: Unremarkable. No DVT in the left common femoral, femoral, proximal deep femora l or popliteal veins. The veins demonstrate normal color flow, are normally compressible, with norm al phasic flow and/or augmentation response. LEFT SUPERFICIAL VEINS: Unremarkable. No thrombus in the visualized left great saphenous vein. SOFT TISSUES: No acute findings. No popliteal cyst. IMPRESSION: Normal bilateral lower extremity duplex venous ultrasound. Electronically signed by: Shiloh Canales MD 09/18/2022 1:03 AM CDT Due to temporary technical issues with the PACS/Fluency reporting system, reports are being signed by the in house radiologist without review as a courtesy to ensure prompt reporting. The interpreting r adiologist is fully responsible for the content of the report.
--- NOTE | 2022-09-18 18:08 | EKG ---
Test Date: 2022-09-18 Test Time: 00:15:34 Certified [place] Administrator: BRI MEASUREMENT RESULTS: Intervals: Rate: 73 NE: 168 QRSD: 78 QT: 382 QTc: 420 [place]: P: 29 NE: 168 QRS: 42 T: 51 INTERPRETIVE STATEMENTS: Normal sinus rhythm Normal ECG No previous ECG available for comparison Electronically Signed On 09-18-22 18:07:14 CDT by Joshua Henning
== END 2022-09-18 03:54 | disposition home or self-care (01) ==
LOC: ER 23:29
DX: R60.9 Edema, unspecified (principal); M54.50 Low back pain, unspecified
CPT/HCPCS: 93005; 85025; 81001; 80048; 36415; 83735; 85610; 84484; 83880; 71275; 74177; 71045; 93970; Q9967; J3360; J1100; 96374; 96375; 99284

== ENCOUNTER 2023-01-11 19:25 | Emergency (ER) | payer OTHER ==
[2011-12-01 12:49] VITALS: BP 123/83
--- OUTSIDE RECORDS SUMMARY | 2023-01-11 19:29 | XMS REPORT | Continuity of Care Document ---
:1990 Author Organization [facility] t Address [address] [place] [address] [address] [place] [address] Care Team Providers Name Role Phone Xander_Henrique Attending Clinician Unavailable GC_HÉCTOR_Francisco Javier_Panfilo Attending Clinician Unavailable Kiersten Damon Attending Clinician Unavailable JACI MELVIN Attending Clinician Unavailable STEFANIE ARRIAGA Attending Clinician Unavailable AMILCAR ZUNIGA Attending Clinician Unavailable Xander_Henrique Admitting Clinician Unavailable GC_HÉCTOR_Ramirecarmita_C Admitting Clinician Unavailable Kiersten Damon Admitting Clinician Unavailable AMILCAR ZUNIGA Admitting Clinician Unavailable Payers Payer Name Policy Type Policy Number Effective Date Expiration Date Aleshia decker ARA [place] - [id number] [facility] 3 (HMO) [facility] [place] - [id number] [facility] - [id number] 2020 OUT OF STATE 00:00:00 Problems This patient has no known problems. Allergies, Adverse Reactions, Alerts Allergy Allergy Status Severity Reaction(s) Onset Inactive Treating Comm ents Source Name Type Date Date Clinician No Known DA Active U [facility] 00 [facility] No Known DA Active U 2019-0 [facility] All[facility]ie 1-21 [facility] s 00:00: e 00 [facility] [place] NO KNOWN Drug Active Univers ALLERGIE Class ity of S [facility] Medications This patient has no known medications. Procedures This patient has no known procedures. Encounters Start End Encounter Admission Attending Care Care Encounter Source Date/Time Date/Time Type Type Clinicians Facility Department ID 2022-07-15 2022-07-15 Outpatient Yan_W [facility] [id number] [place] 00:00:00 [facility]00:00 [id number] 2022-07-15 2022-07-15 Outpatient Yan_W [facility] MMG [id number] [place] 00:00:00 00:00:00 [facility] 2022-05-15 2022-05-15 Outpatient GC_SWHASA_R PRIV PRIV [id number] [facility] 00:00:00 00:00:00 amirez_C [id number] Medic al 2022-04-29 2022-04-30 Inpatient JIMBO Damon, [facility].01 [id number] [facility] 09:52:00 14:13:00 Kiersten 16 [facility] 2020-08-15 2020-08-15 Outpatient Chantale MELVIN [facility] [id number] [facility] 13:30:00 13:30:00 JACI [facility] 2020-04-20 2020-04-20 Outpatient Chantale MELVIN [facility] [id number] [facility] 11:15:00 11:15:00 JACI [facility] 2020-04-01 2020-04-01 Outpatient Chantale ARRIAGA [facility] [id number] Univers 16:40:00 16:40:00 STEFANIE [facility] 2019-12-11 2019-12-12 Inpatient Tono ZUNIGA [facility] [id number] [facility] 18:20:00 13:30:00 AMILCAR 2019-10-26 2019-10-26 Outpatient Chantale MELVIN [facility] [id number] Univers 13:45:00 13:45:00 JACI [facility] Results Test Description Test Time Test Comments Results Result Comments Source SURGICAL 2022-05-01 14:50:00 Test Item Value Reference Range Interpretation Comme nts SURGICAL RUN (test DATE: 05/01/22 [facility] PAGE 1 RUN TIME: 1450 Specimen Inquiry RUN USER: INTERFACE code = TIA SR) ENT: JUNE GALLARDO LOC: AMISHA U #: [id number] AGE/SX: 31/F ROOM: [facility] RE04/29/22REG DR: Kiersten Long MD : 91 BED: A DIS: 04/30/22 STATUS: DIS Cm TLOC: SPEC #: [id number] RECD: 04/29/22 STATUS: TOBY REQ #: [id number] DONNA: 04/29/22-[address]: Kiersten Damon MD EN TERED: 04/29/22 SP TYPE: SURGICAL OTHR DR: ORDERED: ANATOMIC SPEC, SPEC TRACK, [id number] PRO CEDURES: [id number] (04/29/22-1506) TISSUES: A. UTERUS W/WO TUBES OVARIES NON [...] docervical /lower uterine segmentresection margin inked orange. Staffing Consultant sections with entire cervixare submitted as follows: A 1-A2, A3- A4 12:00 to 3:00 cervix A 5-A 6, A 7-A8 3:00 to 6:00 cervix CONTINUE D ON NEXT PAGE RUN DATE: 05/01/22 [facility] PAGE 2 RUN TIME: 1451 Specimen Inquiry RUN USER: INTERFACE SPEC #: [id number] PATIENT: JUNE GALLARDO #[id number] (Continued) ------- GROSS DESCRIPTION (Panfilo sun) A9-A10 6:00 to 9:00 cervix A11-A 12, A13 -A14 9:00 to 12:00 cervix A15 anterior lo wer uterine segment longitudinal section A16 posterior lower uterine segment longitudinal section A17-A18 anterior endomyometrium, 1 full-thickness section each A19 -A20 posterior endomyometriu m, 1 full-thickness section each A21-A22 entire larger fallopian tube segment A23-A24 entire smaller fallopian tube [id number] Technical component performed at [facility] [place] [address] [place] [address] Immunohistochemical stains and Special Stains are performed at [address], [address], [place] [address] Unles s gross only, the diagnosis is [...] 1454P, DYSPLASIA OF CERVIX, STAGE 3. Signed GarrettalberAlejandarjing 0 05/01/22 1450 END OF REPORT CBC W/AUTO [id number] 04:44:00 Test Item Value Reference Range Interpretation [...] NORMAL NORMAL code = PLTMR) UR HCG [id number] 11:10:00 Test Item Value Reference Range Interpretation [...] cted 48 hours later and tested. HGB [id number] 14:15:00 Test Item Value Reference Range Interpretation Comments HEMOGLOBIN (test code = HGB) 11.5 g/dL 10.1-13.8 N HEMATOCRIT (test code = HCT) 35.3 % 32.5-41.8 N UR HCG [id number] 14:05:00 Test Item Value Reference Range Interpretation [...]
[2023-01-11] MEDS ORDERED: DIAZEPAM 5 MG TABLET ONE (20:29)
[2023-01-11] MEDS ORDERED: NA CHLORIDE 0.9% 1,000 ML ONE ×2 (20:29→23:41)
[2023-01-11 20:52] LABS: Specific Gravity > 1.030 (1.005-1.030); Urine Bacteria None Seen /HPF (<20); Urine Bilirubin NEGATIVE (Negative); Urine Blood Negative (Negative); Urine Clarity Turbid (Clear); Urine Color Yellow (Yellow); Urine Glucose NEGATIVE (Negative); Urine Mucus Slight /HPF (None Seen); Urine Protein 1+ (Negative); Urine Urobilinogen 1+ (Normal)
[2023-01-11 21:37] LABS: Absolute Lymphocytes (CBC) 0.2 K/uL (0.7-4.9); Hematocrit 40.3 % (36.0-45.0); Lymphocytes % 3.3 % (15.3-44.8); MCV 92.5 fL (80-100); MPV 8.4 fL (7.6-11.3); Platelets 229 thou/uL (152-406); RBC Red Blood Cell Count 4.36 M/uL (3.86-4.86)
[2023-01-11] MEDS ORDERED: DIAZEPAM 10 MG/2 ML INJ SYRINGE ONE (21:43)
[2023-01-11 21:55] LABS: Albumin 3.8 g/dL (3.4-5.0); Bilirubin Total 0.3 mg/dL (0.2-1.0); C-Reactive Protein 15.7 mg/L (<3.00); Potassium 3.8 mEq/L (3.5-5.1); Protein, Total 8.1 g/dL (6.4-8.2)
[2023-01-11] MEDS ORDERED: IBUPROFEN 200 MG TAB PO ONE (22:17)
[2023-01-11] MEDS ORDERED: IBUPROFEN 400 MG TAB ONE (22:17)
[2023-01-11] MEDS ORDERED: ACETAMINOPHEN 500 MG TAB ONE (23:42)
[2023-01-11] MEDS ORDERED: MORPHINE 4 MG/ML SYR ONE (23:43)
--- NOTE | 2023-01-12 00:59 | EDPHYS ---
Physician Documentation [facility] Name: Shital Ramirez Age: 32 yrs Sex: Female : 1990 Arrival Date: 01/11/2023 Time: 19:25 Bed 14 Private MD: ED Physician Bryan Toro HPI: 01/11 19:48 This 32 yrs old Female presents to ER via Ambulatory with complaints of Fever, Headache.snw 19:48 The patient reports fever, that was measured at 102 degrees Fahrenheit. Onset: The snw symptoms/episode began/occurred suddenly, at 02:00. Associated signs and symptoms: Pertinent positives: arthralgias, decreased appetite, headache. Severity of symptoms: At their worst the symptoms were moderate severe in the emergency department the symptoms are unchanged. The patient has experienced a previous episode. The patient has not recently seen a physician. 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 Flu vaccine is not up to date. - Social history:: Smoking status: Reported history of juuling and/or vaping. Patient/guardian denies using alcohol, street drugs. ROS: 19:48 Eyes: Negative for injury, pain, redness, and discharge, ENT: Negative for injury, snw pain, and discharge, Neck: Negative for injury, pain, and swelling, Cardiovascular: Negative for chest pain, palpitations, and edema, Respiratory: Negative for shortness of breath, cough, wheezing, and pleuritic chest pain, Abdomen/GI: Negative for abdominal pain, nausea, vomiting, diarrhea, and constipation, 19:48 : Negative for injury, bleeding, discharge, and swelling, MS/Extremity: Negative for injury and deformity, Skin: Negative for injury, rash, and discoloration, 19:48 Constitutional: Positive for body aches, fatigue, fever, malaise, poor PO intake, 19:48 Back: Positive for flank pain, bilaterally, radiated pain, 19:48 Neuro: Positive for headache, Exam: 19:48 Head/Face: Normocephalic, atraumatic. Eyes: Pupils equal round and reactive to light, snw extra-ocular motions intact. Lids and lashes normal. Conjunctiva and sclera are non-icteric and not injected. Cornea within normal limits. Periorbital areas with no swelling, redness, or edema. ENT: Nares patent. No nasal discharge, no septal abnormalities noted. Tympanic membranes are normal and external auditory canals are clear. Oropharynx with no redness, swelling, or masses, exudates, or evidence of obstruction, uvula midline. Mucous membranes moist. Neck: Trachea midline, no thyromegaly or masses palpated, and no cervical lymphadenopathy. Supple, full range of motion without nuchal rigidity, or vertebral point tenderness. No Meningismus. Chest/axilla: Normal chest wall appearance and motion. Nontender with no deformity. No lesions are appreciated. 19:48 Respiratory: Lungs have equal breath sounds bilaterally, clear to auscultation and percussion. No rales, rhonchi or wheezes noted. No increased work of breathing, no retractions or nasal flaring. Abdomen/GI: Soft, non-tender, with normal bowel sounds. No distension or tympany. No guarding or rebound. No evidence of tenderness throughout. Back: No spinal tenderness. No costovertebral tenderness. Full range of motion. 19:48 Neuro: Awake and alert, GCS 15, oriented to person, place, time, and situation. Cranial nerves II-XII grossly intact. Motor strength 5/5 in all extremities. Sensory grossly intact. Cerebellar exam normal. Normal gait. Psych: Awake, alert, with orientation to person, place and time. Behavior, mood, and affect are within normal limits. 19:48 Constitutional: The patient appears alert, awake, anxious, febrile, uncomfortable, 19:48 Cardiovascular: Rate: tachycardic, Rhythm: regular, Heart sounds: normal, 19:48 Skin: Appearance: normal except for affected area, Temperature: hot, Vital Signs: 19:44 BP 129 / 92; Pulse 113; Resp 17 S; Temp 99.1(O); Pulse Ox 98% on R/A; Weight 75.75 kg lg3 (R); Height 5 ft. 0 in. (R); 21:41 BP 139 / 99; Pulse 126; Resp 16; Temp 101; Pulse Ox 95% ; nw1 22:37 BP 138 / 84; Pulse 122; Resp 14; Temp 99.3; Pulse Ox 97% ; nw1 23:00 BP 127 / 83; Pulse 125; Resp 16 S; Pulse Ox 97% on R/A; km8 23:20 Temp 100.3; nw1 01/12 00:18 BP 125 / 76; Pulse 124; Resp 15; Temp 101(A); nw01/11 19:44 Body Mass Index 32.61 (75.75 kg, 152.4 cm) lg3 01/11 21:41 notified physician nw1 01/12 00:18 physician at bedside, nw1 MDM: 01/11 19:43 Patient medically screened. snw 23:21 ED course: Pt with c/o low back pain, noted HR at 130, rechecked temp. 103. Will give snw an additional liter of fluid, tylenol 1 gm, and morphine 4mg IV.. 01/12 01:14 Differential diagnosis: viral Infection, bacterial infection, UTI. Data reviewed: vital snw signs, nurses notes, lab test result(s), Flu: negative covid +. I considered the following discharge prescriptions or medication management in the emergency department Medications were administered in the Emergency Department. See MAR. Historians other than the Patient: Spouse/Significant Other: . Counseling: I had a detailed discussion with the patient and/or guardian regarding the historical points, exam findings, and any diagnostic results supporting the discharge/admit diagnosis, lab results, the need for outpatient follow up, for definitive care, to return to the emergency department if symptoms worsen or persist or if there are any questions or concerns that arise at home. Response to treatment: the patient's symptoms have mildly improved after treatment, 2217 motrin 600mg po , 2221 HR 130, temp 103. ED course: eating ice chips, axillary temp 101. 01/11 19:43 Order name: Flu; Complete Time: 20:49 snw 01/11 19:43 Order name: Strep; Complete Time: 20:49 snw 01/11 19:43 Order name: Urine W/Microscopic (UAM); Complete Time: 20:53 snw 01/11 20:04 Order name: CBC with Diff; Complete Time: 21:41 snw 01/11 20:04 Order name: CMP; Complete Time: 21:58 snw 01/11 20:04 Order name: Blood Culture Adult (2) snw 01/11 20:04 Order name: Lactate w/ 2H reflex if indic.; Complete Time: 22:00 snw 01/11 20:04 Order name: CRP; Complete Time: 21:58 snw 01/11 20:22 Order name: SARS-COV-2 RT PCR; Complete Time: 21:08 EDMS 01/11 20:52 Order name: Throat Culture EDMS Administered Medications: 01/11 20:41 Drug: NS 0.9% IV 1000 ml IV at 1000 ml once Route: IV; Rate: 1000 ml; Site: left nw1 antecubital; 21:40 Drug: Diazepam IVP 5 mg IVP once Route: IVP; Site: left antecubital; nw1 22:17 Drug: Ibuprofen PO 600 mg PO once Route: PO; nw1 23:38 Drug: Acetaminophen PO 1000 mg PO once Route: PO; nw1 23:38 Drug: NS 0.9% IV 1000 ml IV at 1 bolus Per protocol; 1000 mL bolus Route: IV; Rate: 1 nw1 bolus; Site: right antecubital; 23:38 Drug: morphine IVP or IV 4 mg IVP once over 4 mins Route: IVP; Infused Over: 4 mins; [facility] Site: right antecubital; 01/12 01:12 Drug: morphine IVP or IV 4 mg IVP once over 4 mins Route: IVP; Infused Over: 4 mins; 1 Site: right antecubital; Disposition: 00:14 I was immediately available on-site in the Emergency Department for consultation in the [facility] care of the patient. Disposition Summary: 01/12/23 00:58 Discharge Ordered Notes: Location: Home snw Condition: Stable snw Diagnosis - SARS-associated coronavirus as the cause of diseases classified elsewhere snw Followup: snw - With: Emergency Department - When: As needed - Reason: Worsening of condition Followup: snw - With: Private Physician - When: 2 - 3 days - Reason: Recheck today's complaints, Continuance of care, Re-evaluation by your physician Discharge Instructions: - Discharge Summary Sheet snw - Aspirin and Your Heart snw - Rehydration, Adult snw - COVID-19 snw - 10 Things You Can Do to Manage Your COVID-19 Symptoms at Home - [facility] (10/06/2020) snw - COVID-19: Quarantine and Isolation - [facility] (06/20/2021) snw - COVID-19: What to Do If You Are Sick - [facility] (06/12/2021) snw Forms: - Work release form snw - Medication Reconciliation Form snw - Thank You Letter snw - Antibiotic Education snw - Prescription Opioid Use snw - Patient Portal Instructions snw - Leadership Thank You Letter snw Prescriptions: - Ultram 50 mg Oral Tablet - take 1 tablet ORAL route every 6 hours As needed; 12 tablet; Refills: 0, snw Product Selection Permitted - Zyrtec 10 mg Oral Tablet - take 1 tablet ORAL route once daily As needed; 20 tablet; Refills: 0, Product snw Selection Permitted - Pepcid 20 mg Oral Tablet - take 1 tablet ORAL route once daily; 20 tablet; Refills: 0, Product Selection snw Permitted Critical care time excluding procedures: 01:18 Critical care time: Bedside Care: 15 minutes, Consultation: 5 minutes, Family snw Intervention: 15 minutes. Total time: 35 minutes Signatures: Dispatcher [employer] EDMehreen Stout, ROUGHER HELPER-C ROUGHER HELPER-Csnw Shannen Hermosillo, RN RN lg3 Bryan Toro DO DO ms3 Klarissa Bass, RN RN nw1 Corrections: (The following items were deleted from the chart) 01/11 20:22 19:44 SARS-COV-2 Antigen Rapid+I.LAB.BRZ ordered. EDMS EDMS
--- NOTE | 2023-01-12 00:59 | ER ---
Nurse's Notes [facility] Name: Shital Ramirez Age: 32 yrs Sex: Female : 1990 Arrival Date: 01/11/2023 Time: 19:25 Bed 14 Private MD: Diagnosis: SARS-associated coronavirus as the cause of diseases classified elsewhere Presentation: 01/11 19:44 Chief complaint: Patient states: fever, body aches and fever since 0200. Coronavirus lg3 screen: Client denies travel out of the [place] in the last 14 days. Client presents with at least one sign or symptom that may indicate coronavirus-19. Standard/surgical mask placed on the client. Ebola Screen: No symptoms or risks identified at this time. Initial Sepsis Screen: Does the patient meet any 2 criteria? No. Patient's initial sepsis screen is negative. Does the patient have a suspected source of infection? No. Patient's initial sepsis screen is negative. Risk Assessment: Do you want to hurt yourself or someone else? Patient reports no desire to harm self or others. Onset of symptoms was January 11, 2023. 19:44 Method Of Arrival: Ambulatory lg3 19:44 Acuity: AYE 4 lg3 Triage Assessment: 19:46 Headache History: Denies prior headaches. General: Appears in no apparent distress. lg3 comfortable, Behavior is calm, cooperative. Pain: Complains of pain in head, generalized body aches Pain currently is 5 out of 10 on a pain scale. Pain began gradually, Also complains of decreased appetite, photophobia. EENT: No deficits noted. No signs and/or symptoms were reported regarding the EENT system. Neuro: No deficits noted. Nova Agitation-Sedation Scale (RASS): 0 - Alert and Calm Level of Consciousness is awake, alert, obeys commands, Oriented to person, place, time, situation, Reports headache. Cardiovascular: No deficits noted. Capillary refill < 3 seconds Clubbing of nail beds is absent JVD is absent Patient's skin is warm and dry. Respiratory: No deficits noted. Airway is patent Respiratory effort is even, unlabored, Respiratory pattern is regular, symmetrical. GI: No deficits noted. No signs and/or symptoms were reported involving the gastrointestinal system. : No deficits noted. No signs and/or symptoms were reported regarding the genitourinary system. Derm: No deficits noted. No signs and/or symptoms reported regarding the dermatologic system. Skin is intact, is healthy with good turgor, Skin is dry, Skin is normal, Skin temperature is warm. Musculoskeletal: No deficits noted. No signs and/or symptoms reported regarding the musculoskeletal system. Circulation, motion, and sensation intact. Range of motion: intact in all extremities. 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 Flu vaccine is not up to date. - Social history:: Smoking status: Reported history of juuling and/or vaping. Patient/guardian denies using alcohol, street drugs. Screenin:44 [facility] ED Fall Risk Assessment (Adult) History of falling in the last 3 months, nw1 including since admission No falls in past 3 months (0 pts) Confusion or Disorientation No (0 pts) Intoxicated or Sedated No (0 pts) Impaired Gait No (0 pts) Mobility Assist Device Used No (0 pt) Altered Elimination No (0 pt) Score/Fall Risk Level 0 - 2 = Low Risk. Abuse screen: Denies threats or abuse. Denies injuries from another. Nutritional screening: No deficits noted. Tuberculosis screening: No symptoms or risk factors identified. Assessment: 21:06 General: Becky from lab called to notify that pt's PCR is COVID positive; Mehreen Rhodes NP notified. 21:42 Pain: Complains of pain in face Pain currently is 7 out of 10 on a pain scale. Quality nw1 of pain is described as aching, pressure, Pain began 1 day ago. Neuro: No deficits noted. Cardiovascular: Rhythm is sinus tachycardia. Respiratory: Reports cough that is non-productive. GI: Reports intolerance of fluids, intolerance of food, nausea, vomiting. EENT: No deficits noted. Reports nasal congestion. Musculoskeletal: Reports generalized weakness. 01/12 00:57 Reassessment: Pt denies lower back pain relief. Physician notified. nw 00:58 Reassessment: Pt states lower back pain relief. Call light at bedside. SO at bedside. nw1 IV fluids almost complete. Vital Signs: 01/11 19:44 BP 129 / 92; Pulse 113; Resp 17 S; Temp 99.1(O); Pulse Ox 98% on R/A; Weight 75.75 kg lg3 (R); Height 5 ft. 0 in. (R); 21:41 BP 139 / 99; Pulse 126; Resp 16; Temp 101; Pulse Ox 95% ; nw1 22:37 BP 138 / 84; Pulse 122; Resp 14; Temp 99.3; Pulse Ox 97% ; nw1 23:00 BP 127 / 83; Pulse 125; Resp 16 S; Pulse Ox 97% on R/A; km8 23:20 Temp 100.3; nw1 01/12 00:18 BP 125 / 76; Pulse 124; Resp 15; Temp 101(A); nw1 01/11 19:44 Body Mass Index 32.61 (75.75 kg, 152.4 cm) lg3 01/11 21:41 notified physician nw1 01/12 00:18 physician at bedside, nw1 ED Course: 01/11 19:27 Patient arrived in ED. mr 19:42 Mehreen Rhodes FNP-C [facility] snw 19:42 Bryan Toro DO is Attending Physician. snw 19:46 Triage completed. lg3 19:46 Arm band placed on right wrist. lg3 19:56 Klarissa Bass, RN is Primary Nurse. nw1 20:09 Strep Sent. nw1 20:09 Flu Sent. nw1 20:42 Blood Culture Adult (2) Sent. nw1 20:42 Strep Sent. nw1 20:42 Flu Sent. nw1 20:59 SARS-COV-2 RT PCR Sent. nw1 21:40 Lactate w/ 2H reflex if indic. Sent. nw1 21:40 CRP Sent. nw1 21:40 CMP Sent. nw1 21:41 Inserted saline lock: 22 gauge in right antecubital area, using aseptic technique. nw1 21:41 No provider procedures requiring assistance completed. nw1 21:44 Patient has correct armband on for positive identification. Placed in gown. Bed in low nw1 position. Call light in reach. Side rails up X2. Provided Education on: POC . Medication admisnitration. 01/12 01:20 IV discontinued, intact, bleeding controlled, No redness/swelling at site. Pressure nw1 dressing applied. Administered Medications: 01/11 20:41 Drug: NS 0.9% IV 1000 ml IV at 1000 ml once Route: IV; Rate: 1000 ml; Site: left nw1 antecubital; 21:40 Drug: Diazepam IVP 5 mg IVP once Route: IVP; Site: left antecubital; nw1 22:17 Drug: Ibuprofen PO 600 mg PO once Route: PO; nw1 23:38 Drug: Acetaminophen PO 1000 mg PO once Route: PO; nw1 23:38 Drug: NS 0.9% IV 1000 ml IV at 1 bolus Per protocol; 1000 mL bolus Route: IV; Rate: 1 nw1 bolus; Site: right antecubital; 23:38 Drug: morphine IVP or IV 4 mg IVP once over 4 mins Route: IVP; Infused Over: 4 mins; nw1 Site: right antecubital; 01/12 01:12 Drug: morphine IVP or IV 4 mg IVP once over 4 mins Route: IVP; Infused Over: 4 mins; nw1 Site: right antecubital; Medication: 01:35 VIS not applicable for this client. nw1 Outcome: 00:58 Discharge ordered by . snslim 01:22 Discharged to home ambulatory, with significant other, nw1 01:22 Condition: good nw1 01:22 Discharge instructions given to patient, significant other, Instructed on discharge instructions, follow up and referral plans. Demonstrated understanding of instructions, follow-up care, 01:35 Patient left the ED. nw1 Signatures: Mehreen Rhodes, COMMUNITY HEALTH NAVIGATOR-C COMMUNITY HEALTH NAVIGATOR-Csnw Marina Henson, Reg Vishnu mr Shannen Hermosillo, RN RN lg3 Kati Pacheco, YONG RN km8 Klarissa Bass, YONG RN nw1 Corrections: (The following items were deleted from the chart) 01/11 20:22 20:09 SARS-COV-2 Antigen Rapid+I.LAB.BRZ drawn and sent. nw1 EDMS 01/12 00:19 10/21 23:20 Temp 103F; nw1 nw1
[2023-01-12] MEDS ORDERED: MORPHINE 4 MG/ML SYR ONE (01:23)
== END 2023-01-12 01:35 | disposition home or self-care (01) ==
LOC: ER 19:25
DX: U07.1 COVID-19 (principal); F32.A Depression, unspecified
CPT/HCPCS: 87040 ×2; 87070; 85025; 81001; 36415; 87081; 83605; 80053; 87635; 86140; 87804 ×2; 99284; J3360; J7030 ×2

== ENCOUNTER 2023-05-09 10:11 | Inpatient (IN) | payer OTHER ==
--- OUTSIDE RECORDS SUMMARY | 2023-05-09 10:14 | XMS REPORT | Continuity of Care Document ---
Author Name Unknown Address [address] [facility] [address] [place] [address] [facility] Address [address] [facility]. 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 Name Role Phone JACI MELVIN Primary Care Physician Conchita BONITA Waters Attending Clinician Unavailable Bonita Strong MD Attending Clinician Enrrique Alvarado Attending Clinician Unavailmelody Amado Attending Clinician Unavailable SOPHIE_HÉCTOR_Francisco Javier_Panfilo Attending Clinician Kiersten Robles Attending Clinician UnavailJACI Croft Attending Clinician STEFANIE Wilson Attending Clinician Unavailable AMILCAR ZUNIGA Attending Clinician Conchita Enrrique Mackey Admitting Clinician Kiersten Johnson Admitting Clinician Unavaila charbel Yan_W Admitting Clinician Unavailable GC_SWHA_Francisco Javier_C Admitting Clinician Unavaila AMILCAR Whitmore Admitting Clinician Conchita vailable Payers Payer Name Policy Type Policy Number Effective Date Expirati on Date Source [facility] [id number] 2020 00:00:00 [facility] 3 (HMO) [id number] [facility] (EPO) [id number] Problems Condition Name Condition Details Condition Category Status Onset Date Resolution Date Last Treatment Date Treating Clinician Comments Source Tinea versicolor Tinea versicolor Disease Active 2015-03 00:00: 00 [facility] Anxiety Anxiety Disease Active 2014-03 00:00: 00 [facility] Allergies, Adverse Reactions, Alerts Allergy Name Allergy Type Status Severity Reaction(s) Onset Date Inactive Date Treating Clinician Comments Source No Known Allergie s DA Active U 04-18 00:00: 00 [facility] No Known Allergie s DA Active U 04-13 00:00: 00 [facility] NO KNOWN ALLERGIE S Drug Class Active [facility] Social History Social Habit Start Date Stop Date Quantity Comments Source History of tobacco use Cigarette Smoker [facility] Sexual orientation [facility] Alcohol intake 2021-10-02 00:00:00 2021-10-02 00:00:00 .14 /d [facility] History of Social function 2020-08-15 00:00:00 2020-08-15 00:00:00 [facility] Tobacco use and exposure 2016-01-02 00:00:00 2016-01-02 00:00:00 Smokeless tobacco non-user [facility] Sex Assigned At 1990 00:00:00 1990 00:00:00 [facility] Smoking Status Start Date Stop Date Source Ex-smoker 2016-01-02 00:00:00 2016-01-02 00:00:00 [facility] Medications Ordered Medication Name Filled Medication Name Start Date Stop Date Current Medication? Ordering Clinician Indication Dosage Frequency Signature (SIG) Comments Components Source escitalopra m oxalate 10 mg tablet 11-02 00:00: 00 Yes [id number] 15mg Take 1.5 tablets by mouth daily. [facility] TRAZODONE 50 mg tablet 8 00:00: 00 Yes [id number] TAKE ONE TABLET BY MOUTH AT BEDTIME [facility] ketoconazol e 200 mg tablet 04-20 00:00: 00 Yes [id number] Take a dose now and repeat in one week [facility] Encounters Start Date/Time End Date/Time Encounter Type Admission Type Attending Clinicians Care Facility Care Department Encounter ID Source 2023-03-01 22:06:00 2023-03-01 22:25:00 Emergency X BONITA STRONG [facility] E[facility] [id number] [facility] 2023-03-01 22:06:00 2023-03-01 22:25:00 Emergency Bonita Strong S [facility] [id number] [facility] 2023-01-31 08:43:00 2023-01-31 08:43:00 Outpatient EL AlvaradoDickEnrrique [facility] [id number] [facility] 2023-01-31 08:43:00 2023-01-31 08:43:00 Outpatient EL Alvarado, Enrrique [facility] [id number] [facility] 2023-01-27 18:14:00 2023-01-27 18:14:00 Outpatient Alvarado, Enrrique [facility] [id number] [facility] 2022-07-15 00:00:00 2022-07-15 00:00:00 Outpatient Yan_W [facility] [id number] [facility] 2022-07-15 00:00:00 2022-07-15 00:00:00 Outpatient Yan_W [facility] [id number] [facility] 2022-05-15 00:00:00 2022-05-15 00:00:00 Outpatient GC_SWHASA_R cassie_C [facility] [id number] [facility] 2022-04-29 09:52:00 2022-04-30 14:13:00 Inpatient Kiersetn Salvador [facility] [id number] [facility] 2020-08-15 13:30:00 2020-08-15 13:30:00 Outpatient JACI GARCIA [facility] [id number] [facility] 2020-04-20 11:15:00 2020-04-20 11:15:00 Outpatient JACI GARCIA [facility] [id number] [facility] 2020-04-01 16:40:00 2020-04-01 16:40:00 Outpatient STEFANIE HWANG [facility] [id number] [facility] 2019-12-11 18:20:00 2019-12-12 13:30:00 Inpatient Tono NADIAAMILCAR [facility] [id number] [facility] 2019-10-26 13:45:00 2019-10-26 13:45:00 Outpatient JACI GARCIA [facility] [id number] [facility] Results Test Description Test Time Test Comments Results Resul t Comments Source - US ABDOMEN COMPLETE 2023-01-31 11:00:00 [facility] 1990 Sex: F Name: JUNE GALLARDO : 1990 Age/S: 32 / F [place] Unit #: [id number] Loc: [place] [address] Phys: Enrrique Alvarado MD Acct: [id number] Dis Date: Status: [facility] PHONE #: [phone] Exam Date: 01/31/2023 0943 FAX #: Reason: EPIGASTRIC PAIN EXAMS: CPT: [id number] US ABDOMEN COMPLETE [id number] S 17 TIME OF STUDY: 01/31/2023 8:47 AM REASON FOR EXAM: EPIGASTRIC PAIN COMPARISON: None. TECHNIQUE: Complete abdominal sonogram. B-mode grayscale, color Doppler, and spectral Doppler images are obtained. FINDINGS: The liver is normal in size, shape and echotexture. There are no focal lesions. No intra or extrahepatic biliary dilatation is present. The common bile duct is not dilated and measures 2 mm.] Portal There is no evidence of cholelithiasis or gallbladder wall thickening or pericholecystic fluid. The pancreas is not well visualized due to overlying bowel gas. Both kidneys are normal in size and echogenicity. The cortical thickness and the cortical medullary differentiation is well maintained. The right kidney measures 9.4 cm in length and the left 9.4 cm. There is a 9 mm nonobstructive calculus in the superior pole of the right kidney. There is no evidence of focal mass or hydronephrosis. The spleen is not enlarged. It measures 8.4 cm in length. The visualized upper aorta and IVC are normal in course and caliber. There is no ascites in the upper abdomen. IMPRESSION: 1. Nonobstructive right nephrolithiasis, otherwise unremarkable abdominal sonogram. at 1100 Reported and signed by: Shaun Montes M.D. CC: Enrrique Alvarado MD Technologist: Maia Horvath Trnakb Date/Time: 01/31/2023 (1100) Jose.SI1 PAGE 1 Signed Report Name: JUNE GALLARDO : 1990 Age/S: 32 / F [place] Unit #: [id number] Loc: [place] [address] Phys: Enrrique Alvarado MD Acct: [id number] Dis Date: Status: DEP CLI PHONE #: [phone] Exam Date: 01/31/2023942 FAX #: Reason: EPIGASTRIC PAIN EXAMS: CPT: [id number] US ABDOMEN COMPLETE [id number] (Continued) Orig Print D/T: S: 01/31/2023 (1104) Probe: PAGE 2 Signed Report - US ABDOMEN COMPLETE 2023-01-31 11:00:00 [facility] 1990 Sex: F Name: JUNE GALLARDO [facility] : 1990 Age/S: 32 / F [id number] [place] Unit #: [id number] Loc: [place] [address] Phys: Enrrique Alvarado MD Acct: [id number] Dis Date: Status: REG CLI PHONE #: [phone] Exam Date: 01/31/202343 FAX #: Reason: EPIGASTRIC PAIN EXAMS: CPT: [id number] US ABDOMEN COMPLETE [id number] S 17 TIME OF STUDY: 01/31/2023 8:47 AM REASON FOR EXAM: EPIGASTRIC PAIN COMPARISON: None. TECHNIQUE: Complete abdominal sonogram. B-mode grayscale, color Doppler, and spectral Doppler images are obtained. FINDINGS: The liver is normal in size, shape and echotexture. There are no focal lesions. No intra or extrahepatic biliary dilatation is present. The common bile duct is not dilated and measures 2 mm.] Portal There is no evidence of cholelithiasis or gallbladder wall thickening or pericholecystic fluid. The pancreas is not well visualized due to overlying bowel gas. Both kidneys are normal in size and echogenicity. The cortical thickness and the cortical medullary differentiation is well maintained. The right kidney measures 9.4 cm in length and the left 9.4 cm. There is a 9 mm nonobstructive calculus in the superior pole of the right kidney. There is no evidence of focal mass or hydronephrosis. The spleen is not enlarged. It measures 8.4 cm in length. The visualized upper aorta and IVC are normal in course and caliber. There is no ascites in the upper abdomen. IMPRESSION: 1. Nonobstructive right nephrolithiasis, otherwise unremarkable abdominal sonogram. at 1100 Reported and signed by: Shaun Montes M.D. CC: Enrrique Alvarado MD Technologist: Maia [facility]vath [facility] Date/Time: 01/31/2023 (1100) [email or web address] PAGE 1 Signed Report Name: JUNE GALLARDO [facility] : 1990 Age/S: 32 / F [id number] [place] Unit #: [id number] Loc: [place] [address] Phys: Enrrique Alvarado MD Acct: [id number] Dis Date: Status: REG CLI PHONE #: [phone] Exam Date: 01/31/2023 0943 FAX #: Reason: EPIGASTRIC PAIN EXAMS: CPT: [id number] US ABDOMEN COMPLETE [id number] (Continued) Orig Print D/T: S: 01/31/2023 (1103) Probe: PAGE 2 Signed Report CBC W/AUTO [id number] 04:44:00* Test Item Value Reference Range Interpretation Comme nts WHITE BLOOD CELL (test code = WBC) [...] pg 27.3-33.9 N MEAN CELL HGB CONCETRATION ( test code = MCHC) 32.4 gm/dL 32.0-34.2 N RED CELL DISTRIBUTION WIDTH (test code = RDW) 11.9 % 12.2-16.3 L PLATELET COUNT (test code = PLT) 252 K/mm3 134-363 N MEAN PLATELET VOLUME (test c ode = MPV) 10.5 fL 9.2-12.7 N NEUTROPHIL % (test code = NT%) 84.0 [...] = BA#) 0.0 K/mm3 RBC MORPHOLOGY REQUIRED (batsheva t code = RBCM) NORMAL NORMAL PLATELET MORPHOLOGY REQUIRED (test code = PLTMR) NORMAL NORMAL UR HCG [id number] 11:10:00* Test Item Value Reference Range Interpretation Comme nts UR HCG QUAL (test code = HCGQLU) NEGATIVE 1. Very dilute u rine specimens, as indicated by a lowspecific gravity, may not contain resources representative levels ofhCG. 2. False negative results may occur when the levels of hCGare below the sensitivity level of the test. If is still suspected, a first morningurine specimen should be collected 48 hours later andtested. HGB [id number] 14:15:00* Test Item Value Reference Range Interpretation Comme nts HEMOGLOBIN (test code = HGB) 11.5 g/dL 10.1-13.8 N HEMATOCRIT (test code = HCT) 35.3 % 32.5-41.8 N UR HCG [id number] 14:05:00* Test Item Value Reference Range Interpretation Comme nts UR HCG QUAL (test code = HCGQLU) NEGATIVE 1. Very dilute u rine specimens, as indicated by a lowspecific gravity, may not contain resources representative levels ofhCG. 2. False negative results may occur when the levels of hCGare below the sensitivity level of the test. If is still suspected, a first morningurine specimen should be collected 48 hours later andtested. Notes Date/Time Note Provider Source 2022-04-30 13:25:00 [id number]:25:00 [facility] ([facility]Discharge SummaryREPORT#:[id number] REPORT STATUS: SignedDATE:04/30/22 TIME: 1325 PATIENT: JUNE GALLARDO UNIT #: [id number]#: [id number] ROOM[facility]BED: [facility]-ADOB: [birth year] AGE: 31 SEX: F ATTEND: Kiersten Damon MDA AUTHOR: Kiersten Damon MD * ALL edits or amendments must be made on the electronic/computer document * PCP PCPPCP:PCP: Kiersten Damon MD General InformationProblem List/A P: 1. Menometrorrhagia 2. CARLOS EDUARDO III (cervical intraepithelial neoplasia III) Free Text A P:s/p TVH-BS - recovering wellDate of admission:Observation Start Date: 04/29/22Date of admission: 04/29/22 Discharge date: 04/30/22Admission diagnosis:THU2XadngwgytbqrkohOydmgfvwf diagnosis:sameHospital course:[facility] FLOOR DISCHARGE SUMMARY Admit Date: [04/29/2022]Discharge Date: [04/30/2022]Attending MD: [Kiersten West M.D.] Final Diagnoses:1. [ CARLOS EDUARDO 3. menometarrahgia]2. s/p TVH-BS3. Benign postoperative course HPI: This is a 31 WF with CIN3 and menometarrhgia not desiring future fertility. For more information, please refer to the admission note. Hospital course: The patient was admitted to [facility] where consent was signed and placed in the chart. Labs: []. All questions and concerns were addressed. The patient had an uncomplicated Surgery/findings: [normal small uterus and adnexa]; please refer to operative report for additional details. The patient was taken to the postsurgical unit in stable condition. Her course was uncomplicated and she was sent home with adequate pain control on oral medications, the ability to ambulate, spontaneously void, and eat without difficulty. She was also passing flatus and was on room air. Postoperative Hct was []. There were no signs or symptoms of infection or hemorrhage at time of discharge. All questions and concerns were addressed prior to discharge Disposition: The patient was discharged home on POD#1] with instructions to limit heavy lifting to <15 lb for 4 weeks, insert nothing in the vagina for 6 weeks including tampons, intercourse, and douching, and to not drive while usingnarcotics. Pt was advised to call her MD for T>100.4, increased vaginal bleeding>1 pad/hr, shortness of breath or chest pain, increased incisional pain, redness, or discharge, increased abdominal pain or leg pain, or any other concerns. Patient was sent home on a regular diet. Discharge medications included [Resume prior medications. Ibuprofen 600mg q 6 hors #40 for pain 1-5. tramadol 50mg q 6 hrs for pain 5-10]. Pt advised to follow up in 2 weeks time for a wound check as well as in 6 weeks time for herpostoperative check with her physician Pt. condition on discharge: stable Med Rec PCPPCP:PCP: Kiersten Damon MD Med RecDischarge meds:Continue taking these medications:busPIRone (BUSPIRONE) 15 MG TAB 7.5 MILLIGRAM ORAL [...] for PAIN Start taking the following new medications:IBUPROFEN (MOTRIN) 800 MG TAB 800 MILLIGRAM ORAL EVERY 8 HOURS. Qty = 40 Refills = 1 traMADol (ULTRAM) 50 MG TAB 50 MILLIGRAM ORAL EVERY 6 HOURS NEEDED. as needed for PAIN SCALE 7-10 (USE 1ST) Qty = 10 No Refills ObjectiveVS/I OLast Documented: Result Date Time Pulse Ox 98 04/30 112 B/P 101/66 04/30 1120 B/P Mean 78.0 04/30 1120 Temp 98.4 04/30 112 Pulse 90 04/30 112 Resp 18 04/30 1120 O2 Delivery Room air 04/30 0335 O2 Flow Rate 10 04/29 1530 24 hour I O ending at 0700: 04/30 0700 04/29 1900 Intake Total 1100.00 1300.00 Output Total 850 750 Balance 250.00 550.00 Intake, IV 400.00 1300.00 Intake, Oral 700 Output, 50 Estimated Blood Loss Output, Urine 850 700 PATIENT WEIGHT: Weight (lb): 157Weight (oz): 3.03Weight (kg): 71.300 General appearance: alert, awake, orientedCardiovascular: regular rate rhythmRespiratory: clear to auscultationGI: soft, non-tender, no guarding, no rebound, no distentionExtremities: no calf tendernessNeuro/COPY MANAGER: alert, oriented X 3 Considered stroke alert: no ResultsFindings/Data:Laboratory Tests: 04/30 0340 Hematology WBC (6.5 - [...] (Auto) (14.5 - 29.7 %) 8.4 L [place] % (Auto) (3.6 - 10.2 %) 7.1 Eos % (Auto) (0.0 - 3.0 %) 0.0 Baso % (Auto) (0.1 - 0.9 %) 0.1 Neut # (Auto) (K/mm3) 11.6 Lymph # (Auto) (K/mm3) 1.2 [place] # (Auto) (K/mm3) 1.0 Eos # (Auto) (K/mm3) 0 Baso # (Auto) (K/mm3) 0.0 Results: labs reviewed Discharge Instructions PCP)( Discharge to: Home/Self Care Discharge InstructionsAdditional Discharge Routines: Attending Follow-Up)( Diet: Regular)( Activity: No Strenuous Activity)( Wound/dressing care: OK to shower tomorrowPrescriptions: e-prescribeRx drug database reviewed: yesDischarge management: less than 30 minsTime spent: Time spent on patient care (minutes): 20 >50% spent on counseling/coordination of care: yes Follow-up AppointmentsAttending Physician: Attending Physician: Kiersten Damon MD Phone: [phone] Attending physician follow up timeframe: In 4-5 weeks at 1332 RPT #:[id number] OF REPORT DSDischarge [id number]:25:00F.[id number] ailable for patient [id number]:33:10 [facility] 2022-04-29 14:34:00 [id number] XDPL/[id number]/u [id number]+5889-50-21U79:34:00 [facility] ([facility])Full Op NoteREPORT#:[id number] REPORT STATUS: SignedDATE:04/29/22 TIME: 1434 PATIENT: JUNE GALLARDO UNIT #: [id number]#: [id number] ROOM/BED:: 91 AGE: 31 SEX: F ATTEND: Kiersten Damon MDADM AUTHOR: Kiersten Damon MD * ALL edits or amendments must be made on the electronic/computer document * Operative ReportORM Surgeries: Surgery Date and Time: 04/29/2022 1200 Proposed Primary Procedure: HYSTERECTOMY VAGINAL BS Start date: 04/29/22art time: 1321Pre-procedure diagnosis:ETS7QwpvmswwvgfywceBbbv-yfdrfmjpc diagnosis:sameProcedures performed:Total Vaginal hysaterectomyBilateral salpingectomiesTechnique/Procedure:Rebviewed procedure with risk/benefits with patient. Desirng to proceed with surgery. After identification patient taken to OR. Placed in supine pposition and General anesthesia administered by Anesthesia staff. Patient then placed indorsolithotomy posistin for vaginal procedure. Patient prepped and draped. Time out was performed with procedure idenifued with risk/complications, length of procedure. All participants identifed and agreed with planned procedure. Weighted speculum placed in posterior vagina after patient placed in trendelberg. Cerivx grasped anterior and posterior lips with [place] clamps. 10 cc o a dilute pretressin 20 in 30cc of saline was injected into the cervix at 2 10 o'clock for hemostasis. Using the Bovie a circumferentil incision was made into the vagina overlying the cul de sacs. The posterior culde sac was entered sharply with Giles scissors and the long duck speculum was placed. Uterosacral ligaments were identified, clapmed, cut and ligated with 0 Vicryl suture and tagged. The bladder pillars were clamped cut and ligated. The anterior culde sac was dissected and entered. The right angle retractor wasplaced in this space. Successive pedicles were taken incoporating the Cardinal ligaments, uterus veslees and up to the roud ligament. The uteru was then flipped with a [place] clmp grasping the fundus and delivered through theintroitus. The Round ligament Utero ovarian and fallopian tube were clapmed with a haey and the specimen containing the Uterus and cervix was removed. These pedicles were doubly ligaated with 0 Vicryl and tagged with small cshner clmaps. The Fallopian tues were identified, grasped with a [place] clampy and the clamped across the mesosalpinx with a Serrot clamp and removed. These pedicles were ligated. All pedicles were inspeced and found to be hemostatic. The area was irrigated. Short duck bill speculum then replaced the the long duck bill. The peritoneum was identified and closed with apurse string suture of 2-0 Vicryl. Angle stitches to support the vaginal cuff were placed going through anterior vagina, uterosacral complex and posterior vagina. The vaginal cuff was then closed anterior/posterior with interlocking stitches of 0 Vicryl. Vagina irrigated again and hemostatic. The garcia was placed in the vagina and return of Pyridium tinged urine noted. All lap, needle, and strument counts correct x2. Patient toleratedprocedure well. Debriefing was performed.Two surgical assistants were required to to performe this procedure safely for retraction, suturing and cutting suture.Primary Surgeon: Kiersten Damon M.D.Co-surgeon:Irlanda flores M.D.Supervisor Slate Splitting(s): TRUE Bo m.D., I7Yudkzbzqefqhmova:Francisco Javier QuintanillaAnesthesia: general anesthesiaIndications:ZGX7CojfciognavlldaHorjnctg e findings:Small uterus with good descent under anesthesia. Normal Tubes/ovariesComplications: noneEstimated blood loss in ml's: 50ccBlood products: noneSpecimens removed/altered: uterus with cervix attached. Bilateral fallopian tubesCultures sent: NoDrain(s)/tube(s): foleyImplant(s): noneFluids:800ccTourniquet:n/aUrine output:300ccApproach: vaginalDisposition: PACU, MEDSURounts: Sponge count: correct Instrument count: correct Needle count: correctWound class: clean-contaminatedDictation number:n/a at 1459 [facility] #:[id number] OF REPORT OPOperative [id number]:34:00F.[id number] ilable for patient [id number]:00:09 [facility]
[2023-05-09 11:33] LABS: Absolute Lymphocytes (CBC) 1.2 K/uL (0.7-4.9); Hematocrit 38.3 % (36.0-45.0); Lymphocytes % 18.4 % (15.3-44.8); MCV 89.5 fL (80-100); MPV 9.1 fL (7.6-11.3); Platelets 269 thou/uL (152-406); RBC Red Blood Cell Count 4.28 M/uL (3.86-4.86)
[2023-05-09 11:35] LABS: Specific Gravity 1.017 (1.005-1.030); Urine Bacteria None Seen /HPF (<20); Urine Bilirubin NEGATIVE (Negative); Urine Blood Negative (Negative); Urine Clarity Extremely Turbid (Clear); Urine Color Light-Yellow (Yellow); Urine Glucose NEGATIVE (Negative); Urine Mucus Slight /HPF (None Seen); Urine Protein TRACE (Negative); Urine RBC <5 /HPF (None Seen); Urine Urobilinogen Normal (Normal); Urine pH 7.5 (5.0-7.0)
[2023-05-09] MEDS ORDERED: ONDANSETRON 4 MG/2 ML VIAL ONE (11:39)
[2023-05-09] MEDS ORDERED: MORPHINE 4 MG/ML SYR ONE ×2 (11:40→12:33)
[2023-05-09 11:54] LABS: ALT/SGPT 25 U/L (13-56); AST/SGOT 29 U/L (15-37); Alkaline Phosphatase 73 U/L (45-117); BUN Blood Urea Nitrogen 12 mg/dL (7-18); Bicarbonate 24 mEq/L (21-32); Bilirubin Total 0.7 mg/dL (0.2-1.0); Glomerular Filtration Rate 84 ml/min (=/>90); Glucose Level 83 mg/dL (74-106); Lipase 37 U/L (13-75); Protein, Total 8.4 g/dL (6.4-8.2); Sodium Level 132 mEq/L (136-145)
[2023-05-09 11:55] LABS: Troponin High Sensitivity < 3.0 pg/mL (<58.9)
--- NOTE | 2023-05-09 12:44 | RAD REPORT ---
EXAM DESCRIPTION: US - Abdomen Exam Limited - 05/09/2023 10:39 am CLINICAL HISTORY: RUQ abd pain COMPARISON: Abdomen Pelvis W Contrast dated 09/18/2022 TECHNIQUE: Sonographic grayscale and color flow images of the right upper abdominal quadrant were o btained. FINDINGS: The gallbladder multiple shadowing gallstones. No pericholecystic fluid or gallbladder wal l thickening. The common bile duct is normal measuring 2 mm. The liver demonstrates no findings of intrahepatic biliary dilatation. IMPRESSION: Cholelithiasis. No sonographic findings to suggest acute cholecystitis.
--- NOTE | 2023-05-09 12:45 | RAD REPORT ---
[facility] CLINICAL HISTORY: CHEST PAIN COMPARISON: Chest Single View dated 09/18/2022; Abdomen Pelvis W Contrast dated 05/09/2023 TECHNIQUE: Portable AP view of the chest. FINDINGS: Medial hazy right lung opacity, could reflect atelectasis or superimposition of soft tissu es, less likely focal airspace disease. No pneumothorax or effusion. The cardiomediastinal contours are unremarkable. IMPRESSION: Medial hazy right basilar opacification, favored to reflect atelectasis or superimpositi on of soft tissues.
--- NOTE | 2023-05-09 12:52 | RAD REPORT ---
EXAM DESCRIPTION: CT - Abdomen Pelvis W Contrast - 05/09/2023 12:17 pm CLINICAL HISTORY: ABD PAIN COMPARISON: Abdomen Pelvis W Contrast dated 09/18/2022; Abdomen Pelvis W Contrast dated 8; Chest Single View dated 05/09/2023 TECHNIQUE: Thin cut axial CT imaging of the abdomen and pelvis was performed following intravenous a dministration of 100 mL Isovue 300. Multiplanar reformats were generated and reviewed. All CT scans are performed using dose optimization technique as appropriate and may include automated exposure control or mA/KV adjustment according to patient size. FINDINGS: No suspicious findings in the lung bases. No discrete correlate for the medial right basil ar airspace opacity seen on radiograph. The liver, spleen, adrenal glands, and pancreas show no suspicious findings. Gallbladder and biliary tree are also without suspicious finding. Symmetric renal function is seen with no hydronephrosis or suspicious renal mass. No dilated bowel loops or bowel wall thickening. Appendix is unremarkable No free air, free fluid or inflammatory stranding. No hernia, mass or bulky lymphadenopathy. Sequelae of partial gastrectomy. Dominant right pelvic thin walled ovoid cystic 4.5 x 3.2 cm lesion. A collapsed left adnexal region 1.5 cm cyst is also noted. These are likely physiologic. Urinary blad kristyn is decompressed limiting evaluation. No suspicious bony findings. Chronic appearing deformity along superior endplate of L4, may relate to a sizable Schmorl's node. IMPRESSION: No acute intra-abdominal process. Adnexal cystic lesions, 1 of which suggests a recently ruptured follicle, both are likely of physiolo gic nature.
[2023-05-09] MEDS ORDERED: KETOROLAC 30 MG/ML INJ ONE (13:11)
--- NOTE | 2023-05-09 13:19 | ER ---
Nurse's Notes [facility] Name: Shital Ramirez Age: 32 yrs Sex: Female : 1990 Arrival Date: 05/09/2023 Time: 10:11 Bed 14 Private MD: Diagnosis: Other cholelithiasis without obstruction;Intractable vomiting Presentation: 05/09 10:20 Chief complaint: Patient states: Right sided chest pain, RUQ and RLQ abdominal pain jl7 since 0900 this morning. 10:20 Coronavirus screen: At this time, the client does not indicate any symptoms associated jl7 with coronavirus-19. Ebola Screen: No symptoms or risks identified at this time. Initial Sepsis Screen: Does the patient meet any 2 criteria? No. Patient's initial sepsis screen is negative. Does the patient have a suspected source of infection? No. Patient's initial sepsis screen is negative. Risk Assessment: Do you want to hurt yourself or someone else? Patient reports no desire to harm self or others. Onset of symptoms was May 09, 2023 at 09:00. 10:20 Method Of Arrival: Ambulatory jl7 10:20 Acuity: AYE 3 jl7 Triage Assessment: 10:46 General: Appears in no apparent distress. uncomfortable, Behavior is calm, cooperative, jl7 appropriate for age. Pain: Complains of pain in back, chest and abdomen Pain currently is 8 out of 10 on a pain scale. Cardiovascular: Patient's skin is warm and dry. Rhythm is sinus tachycardia. Respiratory: Airway is patent Respiratory effort is even, unlabored, Respiratory pattern is regular, symmetrical. GI: Reports nausea. Derm: Skin is dry, Skin is pale, Skin temperature is warm. 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 - Social history:: Smoking status: Reported history of juuling and/or vaping. - Family history:: not pertinent. - Hospitalizations: : No recent hospitalization is reported. Screenin:42 [facility] ED Fall Risk Assessment (Adult) History of falling in the last 3 months, mb9 including since admission No falls in past 3 months (0 pts) Confusion or Disorientation No (0 pts) Intoxicated or Sedated No (0 pts) Impaired Gait No (0 pts) Mobility Assist Device Used No (0 pt) Altered Elimination No (0 pt) Score/Fall Risk Level 0 - 2 = Low Risk Oriented to surroundings, Maintained a safe environment, Educated pt \T\ family on fall prevention, incl call for assistance when getting out of bed. Abuse screen: Denies threats or abuse. Nutritional screening: No deficits noted. Tuberculosis screening: No symptoms or risk factors identified. Assessment: 11:41 General: Appears in no apparent distress. Behavior is calm, cooperative. Pain: mb9 Complains of pain in chest Pain radiates to abdomen and back Pain currently is 10 out of 10 on a pain scale. Quality of pain is described as throbbing, Pain began suddenly, Is continuous. Neuro: Nova Agitation-Sedation Scale (RASS): 0 - Alert and Calm Level of Consciousness is awake, alert, obeys commands, Oriented to person, place, time, situation, Appropriate for age. Cardiovascular: Reports chest pain, Heart tones S1 S2 present Patient's skin is warm and dry. Respiratory: Airway is patent Respiratory effort is even, unlabored, Respiratory pattern is regular, symmetrical, Breath sounds are clear bilaterally. GI: Abdomen is flat, non-distended, Bowel sounds present X 4 quads. Abd is soft Abdomen is tender to palpation in right upper quadrant and right lower quadrant Reports nausea. : No signs and/or symptoms were reported regarding the genitourinary system. EENT: No signs and/or symptoms were reported regarding the EENT system. Derm: Skin is pink, warm \T\ dry. Musculoskeletal: Range of motion: intact in all extremities. 12:36 Reassessment: Patient and/or family updated on plan of care and expected duration. Pain mb9 level reassessed. Patient is alert, oriented x 3, equal unlabored respirations, skin warm/dry/pink. Patient states symptoms have not improved. 13:45 Reassessment: No changes from previously documented assessment. Patient and/or family mb9 updated on plan of care and expected duration. Pain level reassessed. Patient is alert, oriented x 3, equal unlabored respirations, skin warm/dry/pink. Vital Signs: 10:20 BP 108 / 78; Pulse 104; Resp 17; Temp 97.5; Pulse Ox 100% ; Weight 62.6 kg; Height 5 jl7 ft. 0 in. ; Pain 8/10; 11:52 BP 110 / 86; Pulse 94; Resp 18; Pulse Ox 100% on R/A; mb9 12:36 BP 121 / 82; Pulse 96; Resp 18; Pulse Ox 100% on R/A; mb9 13:59 BP 112 / 82; Pulse 98; Resp 18; Pulse Ox 98% on R/A; mb9 16:04 BP 112 / 84; Pulse 89; Resp 13 S; Pulse Ox 100% on R/A; as6 10:20 Body Mass Index 26.95 (62.60 kg, 152.4 cm) jl7 10:20 Pain Scale: Adult jl7 ED Course: 10:14 Patient arrived in ED. im 10:14 Cecilio Browne MD is Attending Physician. rn 10:25 Arm band placed on right wrist. Patient placed in waiting room, Patient notified of jl7 wait time. 10:41 US Abdomen Limited In Process Unspecified. EDMS 10:46 Triage completed. jl7 11:05 XRAY Chest (1 view) In Process Unspecified. EDMS 11:25 Initial lab(s) drawn, by me, sent to lab. Urine collected: clean catch specimen, clear. aw1 Missed attempt(s): 20 gauge in left antecubital area. 22 gauge in right antecubital area. Bleeding controlled, band aid applied, catheter tip intact. 11:31 Marina Martinez, RN is Primary Nurse. mb9 11:31 Inserted saline lock: 22 gauge in left antecubital area, using aseptic technique. mb9 11:42 Placed in gown. Bed in low position. Call light in reach. Side rails up X 1. Client mb9 placed on continuous cardiac and pulse oximetry monitoring. NIBP monitoring applied. conservation specialist on. 11:43 No provider procedures requiring assistance completed. mb9 12:18 CT Abd/Pelvis - IV Contrast Only In Process Unspecified. EDMS 13:16 Tima Browne MD is Hospitalizing Provider. rn 17:09 Patient admitted, IV remains in place. mb9 Administered Medications: 11:42 Drug: Ondansetron IVP 4 mg IVP once; over 2 minutes Route: IVP; Site: left antecubital; mb9 13:53 Follow up: Response: No adverse reaction mb9 11:52 Drug: morphine IVP or IV 4 mg IVP once over 4 mins Route: IVP; Infused Over: 4 mins; mb9 Site: left antecubital; 13:53 Follow up: Response: No adverse reaction mb9 12:36 Drug: morphine IVP or IV 4 mg IVP once over 4 mins Route: IVP; Infused Over: 4 mins; mb9 Site: left antecubital; 13:52 Follow up: Response: No adverse reaction mb9 13:13 Drug: Ketorolac IVP 15 mg IVP once Route: IVP; Site: left antecubital; mb9 13:53 Follow up: Response: No adverse reaction mb9 14:13 Drug: HYDROmorphone IVP 0.5 mg IVP once Route: IVP; Site: left antecubital; mb9 17:10 Follow up: Response: No adverse reaction mb9 Medication: 11:43 VIS not applicable for this client. mb9 Outcome: 13:16 Discharge ordered by . rn 13:18 Decision to Hospitalize by Provider. rn 17:09 Admitted to Med/surg accompanied by tech, room 202, with chart, Report called to aracely Soliman RN 17:09 Condition: stable 17:09 Instructed on the need for admit, 17:20 Patient left the ED. mb9 Signatures: Dispatcher [employer] EDMS Cecilio Browne MD MD rn Leal, Jahala RN RN jl7 Ty Washington RN RN as6 Marina Martinez RN RN mb9 Ronit Jo Alyssa aw1
--- NOTE | 2023-05-09 13:19 | EDPHYS ---
Physician Documentation [facility] Name: Shital Ramirez Age: 32 yrs Sex: Female : 1990 Arrival Date: 05/09/2023 Time: 10:11 Bed 14 Private MD: ED Physician Cecilio Browne HPI: 05/09 10:28 This 32 yrs old Female presents to ER via Unassigned with complaints of Chest Pain, rn Abdominal Pain, Back Pain. 10:40 The patient presents with abdominal pain in the right upper quadrant, right lower rn quadrant. Onset: The symptoms/episode began/occurred this morning. The symptoms radiate to back. Associated signs and symptoms: Pertinent positives: nausea, Pertinent negatives: blood in stools, constipation, diarrhea, fever, shortness of breath, vomiting, vomiting blood. The symptoms are described as achy. Modifying factors: The symptoms are alleviated by nothing, the symptoms are aggravated by touching the area. Severity of pain: At its worst the pain was moderate in the emergency department the pain is unchanged. The patient has not experienced similar symptoms in the past. Patient reports right-sided abdominal pain associated with nausea, began this morning. Reports radiates to right chest and right back. No trauma. No fever. No vomiting or diarrhea. No history of gallstones. Seen by PCP a day or 2 ago for more mild abdominal pain and unclear diagnosis given at that time. No new medications. Not , has had total hysterectomy.. 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 - Social history:: Smoking status: Reported history of juuling and/or vaping. - Family history:: not pertinent. - Hospitalizations: : No recent hospitalization is reported. ROS: 10:40 Constitutional: Negative for fever, chills, and weight loss, Eyes: Negative for injury, rn pain, redness, and discharge, Neck: Negative for injury, pain, and swelling, Cardiovascular: Positive for chest pain Respiratory: Negative for shortness of breath, cough, wheezing, and pleuritic chest pain, Abdomen/GI: Abdominal pain and nausea Back: Positive for right-sided back pain MS/Extremity: Negative for injury and deformity, Skin: Negative for injury, rash, and discoloration, Neuro: Negative for headache, weakness, numbness, tingling, and seizure, Exam: 10:40 Constitutional: This is a well developed, well nourished patient who is awake, alert, rn appears in pain, ambulatory to room with emesis bag that is empty Head/Face: Normocephalic, atraumatic. Cardiovascular: Regular rate and rhythm. No pulse deficits. Respiratory: No increased work of breathing, no retractions or nasal flaring. Abdomen/GI: Soft, mild right upper quadrant and right lower quadrant tenderness with guarding. No peritoneal signs. Back: No spinal tenderness. No costovertebral tenderness. Full range of motion. MS/ Extremity: Pulses equal, no cyanosis. Neurovascular intact. Full, normal range of motion. Equal circumference. Neuro: Awake and alert, GCS 15, oriented to person, place, time, and situation. 10:46 ECG was reviewed by the Attending Physician. rn Vital Signs: 10:20 BP 108 / 78; Pulse 104; Resp 17; Temp 97.5; Pulse Ox 100% ; Weight 62.6 kg; Height 5 jl7 ft. 0 in. ; Pain 8/10; 11:52 BP 110 / 86; Pulse 94; Resp 18; Pulse Ox 100% on R/A; mb9 12:36 BP 121 / 82; Pulse 96; Resp 18; Pulse Ox 100% on R/A; mb9 13:59 BP 112 / 82; Pulse 98; Resp 18; Pulse Ox 98% on R/A; mb9 16:04 BP 112 / 84; Pulse 89; Resp 13 S; Pulse Ox 100% on R/A; as6 10:20 Body Mass Index 26.95 (62.60 kg, 152.4 cm) jl7 10:20 Pain Scale: Adult jl7 MDM: 10:15 Patient medically screened. rn 13:14 Differential diagnosis: appendicitis, cholecystitis, Cholelithiasis, gastritis, rn gastroesophageal reflux disease, non-specific abd pain, pancreatitis, Peptic Ulcer Disease, Perf. Duodenal Ulcer, Pyelonephritis, urinary tract infection. Data reviewed: vital signs, nurses notes, lab test result(s), radiologic studies, CT scan, ultrasound, and as a result, I will admit patient. Consideration of Admission/Observation Patient was admitted/placed on observation. Escalation of care including admission/observation considered. Counseling: I had a detailed discussion with the patient and/or guardian regarding the historical points, exam findings, and any diagnostic results supporting the discharge/admit diagnosis, lab results, radiology results, the need for further work-up and treatment in the hospital. Response to treatment: There is no appreciated change of the patient's symptoms at this time, and as a result, I will admit patient. ED course: Patient with cholelithiasis on imaging, normal WBC, normal LFTs and lipase. CT abdomen pelvis shows possible follicular or cystic rupture. On exam patient more tender right upper quadrant and patient complains of persistent pain without any alleviation of pain from the morphine x 2. Given Toradol as well. Will admit to hospitalist service for intractable pain and vomiting with a surgical consult.. 05/09 10:20 Order name: CBC with Diff; Complete Time: 11:56 05/09 10:20 Order name: CMP; Complete Time: 11:56 05/09 10:20 Order name: Lipase; Complete Time: 11:56 05/09 10:20 Order name: Urinalysis w/ reflexes; Complete Time: 11:56 05/09 10:20 Order name: Troponin High Sensitivity; Complete Time: 11:56 05/09 10:20 Order name: CT Abd/Pelvis - IV Contrast Only; Complete Time: 12:58 05/09 10:20 Order name: US Abdomen Limited; Complete Time: 12:58 05/09 10:20 Order name: XRAY Chest (1 view); Complete Time: 12:58 05/09 10:20 Order name: EKG; Complete Time: 10:21 05/09 10:20 Order name: IV Saline Lock; Complete Time: 11:31 05/09 10:20 Order name: Labs collected and sent; Complete Time: 11:25 05/09 10:20 Order name: EKG - Nurse/Tech; Complete Time: 11: EC:46 Rate is 100 beats/min. Rhythm is regular. Left axis deviation noted. QRS is positive in rn lead aVF and negative in lead I. [place] interval is normal. QRS interval is normal. QT interval is normal. No Q waves. T waves are Normal. No ST changes noted. Clinical impression: NSR w/ Non-specific ST/T Changes. Interpreted by me. Reviewed by me. Administered Medications: 11:42 Drug: Ondansetron IVP 4 mg IVP once; over 2 minutes Route: IVP; Site: left antecubital; mb9 13:53 Follow up: Response: No adverse reaction mb9 11:52 Drug: morphine IVP or IV 4 mg IVP once over 4 mins Route: IVP; Infused Over: 4 mins; mb9 Site: left antecubital; 13:53 Follow up: Response: No adverse reaction mb9 12:36 Drug: morphine IVP or IV 4 mg IVP once over 4 mins Route: IVP; Infused Over: 4 mins; mb9 Site: left antecubital; 13:52 Follow up: Response: No adverse reaction mb9 13:13 Drug: Ketorolac IVP 15 mg IVP once Route: IVP; Site: left antecubital; mb9 13:53 Follow up: Response: No adverse reaction mb9 14:13 Drug: HYDROmorphone IVP 0.5 mg IVP once Route: IVP; Site: left antecubital; mb9 17:10 Follow up: Response: No adverse reaction mb9 Disposition Summary: 05/09/23 13:18 Hospitalization Ordered Notes: Hospitalization Status: Observation rn Provider: Tima Browne rn Location: Telemetry/MedSurg (observation)(05/09/23 13:18) rn Condition: Stable(05/09/23 13:18) rn Problem: new(05/09/23 13:18) rn Symptoms: are unchanged(05/09/23 13:18) rn Bed/Room Type: Standard rn Room Assignment: 202(05/09/23 15:51) sp Diagnosis - Other cholelithiasis without obstruction(05/09/23 13:18) rn - Intractable vomiting rn Forms: - Medication Reconciliation Form rn - SBAR form rn - Leadership Thank You Letter rn Signatures: Dispatcher [employer] EDMS Tosha Castaneda Roman, MD MD rn Attema, Lee, TOOL PLANNER-C TOOL PLANNER-Cla1 Damien Gallardo, RN RN jl7 Marina Martinez, RN RN mb9 Corrections: (The following items were deleted from the chart) 13:16 13:16 Home rn rn : 13:16 new rn rn : 13:16 are unchanged rn rn : 13:16 Stable rn rn :16 13:16 Other cholelithiasis without obstruction rn rn : 13:16 Vomiting, unspecified rn rn : 13:16 Intractable pain rn rn 15:51 13:18 rn sp
[2023-05-09] MEDS ORDERED: HYDROMORPHONE HCL 0.5 MG/0.5 ML INJ ONE (14:10)
--- NOTE | 2023-05-09 14:56 | P.HP ---
Certification for Inpatient Patient admitted to: Observation With expected LOS: <2 Midnights Patient will require the following post-hospital care: None Practitioner: I am a practitioner with admitting privileges, knowledge of patient current condition, hospital course, and medical plan of care. Services: Services provided to patient in accordance with Admission requirements found in Title 42 Section 412.3 of the Code of Federal Regulations Patient History Date of Service: 05/09/23 Reason for admission: Cholelithiasis, vomiting History of Present Illness: 32-year-old female with history of anxiety/depression presents emergency department chief complaint of right upper quadrant and right lower quadrant abdominal pain. She reports that on 05/07/2023 she ate [place] food in the evening and after that had an episode of vomiting, she had some mild abdominal pain on during the day but improved in the evening, she was able to tolerate lasagna last night. This morning she woke up with significant right upper and right lower quadrant abdominal pain. She was evaluated in the emergency department her labs were unremarkable. Chest x-ray showed medial hazy right basilar opacification, favored to reflect atelectasis or superposition of soft tissues. CT abdomen pelvis was also performed which was significant for adnexal cystic lesions, 1 of which suggest a recently ruptured follicle, both are likely of physiologic nature. Additionally an abdominal ultrasound was performed which showed cholelithiasis without signs of cholecystitis. Patient was significant abdominal pain still after receiving multiple rounds of pain medication, ED provider wishes to admit under observation for abdominal tenderness, cholelithiasis Allergies No Known Allergies Allergy (Unverified 11/30/11 13:09) Home Medications: Esomeprazole [Nexium SA*] 20 mg PO BEDTIME 03/20/13 Iron &Iron Asp Gly/FA/Mv,Min38 [Iron Tablet] 1 each PO DAILY 03/20/13 Hydrocodone/Acetaminophen [[place] 5-325 Tablet] 1 each PO Q6HR PRN #25 tablet 03/21/13 - Past Medical/Surgical History Diabetic: No -: chicken pox, 1998 -: Anxiety/depression -: Tubal ligation -: Hysterectomy Psychosocial/ Personal History: Lives at home with family, 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 moist/pink Neck: Supple, 2+ carotid pulse no bruit, No LAD Respiratory: Clear to auscultation bilaterally, Normal air movement Cardiovascular: Regular rate/rhythm, Normal S1 S2 Gastrointestinal: Normal bowel sounds, No rebound, No guarding, Tenderness (Mild to moderate right lower quadrant/right upper quadrant tenderness) Musculoskeletal: No tenderness Integumentary: No rashes Neurological: Normal speech, Normal strength at 5/5 x4 extr, Normal tone, Normal affect - Studies Laboratory Data (last 24 hrs) 05/09/23 05/09/23 11:20 11:20 WBC 6.30 Hgb 13.0 Hct 38.3 Plt Count 269 Sodium 132 L Potassium 4.0 BUN 12 Creatinine 0.93 Glucose 83 Total Bilirubin 0.7 AST 29 ALT 25 Alkaline Phosphatase 73 Lipase 37 Assessment and Plan - Plan Assessment and plan Abdominal tenderness, cholelithiasis CT shows adnexal cyst-possibly recently ruptured Possibly contributing to pain/peritonitis Additionally ultrasound shows cholelithiasis Clear liquids until midnight/n.p.o. after midnight General surgery consulted/aware Continue empiric antibiotics, as needed pain medications and antiemetics Serial abdominal exams DVT PPX: SCDs Code status: Full Discharge Plan: Home Plan to discharge in: 24 Hours - Advance Directives Does patient have a Living Will: No Does patient have a Durable POA for Healthcare: No - Code Status/Comfort Care Code Status Assessed: Yes (Full code) Critical Care: No Time Spent Managing Pts Care (In Minutes): 55
--- NOTE | 2023-05-09 15:00 | EKG ---
Test Date: 2023-05-09 Test Time: 10:23:49 Senior Firmware Engineer: LICO MEASUREMENT RESULTS: Intervals: Rate: 100 RI: 130 QRSD: 78 QT: 332 QTc: 428 [place]: P: RI: 130 QRS: 146 T: 147 INTERPRETIVE STATEMENTS: Normal sinus rhythm Left posterior fascicular block Abnormal ECG Compared to ECG 09/18/2022 00:15:34 Left posterior fascicular block now present Electronically Signed On 05-09-23 14:59:25 SALES AND MARKETING SPECIALIST by Joshua Henning
[2023-05-09] MEDS: ONDANSETRON 4 MG/2 ML VIAL IV PRN (18:04)
[2023-05-09] MEDS: HYDROMORPHONE HCL 0.5 MG/0.5 ML INJ IV PRN (18:04)
[2023-05-09] MEDS: NA CHLORIDE 0.9% 1,000 ML IV SCH (18:08)
[2023-05-09] MEDS: PIPER TAZO 3.375 GM in NA CHLORIDE 0.9% 100 ML IV SCH (18:08)
[2023-05-09 18:34] VITALS: BMI 26.9
--- NOTE | 2023-05-09 20:25 | CON ---
Date of Consultation: 05/09/2023 Diagnosis: Abdominal pain. History Of Present Illness: This is the case of a 32-year-old patient who comes to us complaining of abdominal pain since this morning. She stated that 2 nights ago she ate [place] food in the evening of Sprague's Day. She did not feel better next day, so yesterday she went to her primary doctor. They did an ultrasound of the gallbladder. They could not see anything or any stones. Then this mo rning she developed abdominal pain, but she claims it is on the right lower quadrant, mid and upper q uadrant. She ate some lasagna last night, but she stated that overnight she did not have pain, it wa s just this morning. She is not sure exactly what happened. She denies any dysuria, hematuria, bernadette tochezia, melena. Denies any recent traveling out of the country. Denies any family member sick at home. During the workup, the patient did an imaging and the imaging shows an adnexal cystic lesion, probably ruptured follicle with fluid around the area. Also shows some findings of cholelithiasis bu t no cholecystitis. The patient feels better now. Allergies: NONE. Medications: Include Nexium, hydrocodone. Past Medical History: Include anxiety. Past Surgical History: Include tubal ligation. Also hysterectomy but ovaries still there. Social History: She does not smoke. She does not drink alcohol. Family History: Noncontributory. Review of Systems: Nausea, vomiting, abdominal pain, but is mainly generalized, but is in the right side, right lower qu adrant, mid and right upper quadrant. No dysuria, hematuria, hematochezia, melena once again. Physical Examination: General: The patient is awake, alert. HEENT: Pupils are equal and reactive. Anicteric. Neck: Supple. Chest: Clear. Heart: S1, S2. Abdomen: Soft and depressible. Mild diffuse generalized tenderness, right side more left side, but nonspecific and no guarding or rebound at this moment. Pelvic, Rectal: Deferred. Extremities: Good capillary refill. Laboratory Data: WBC count of 6.3, hemoglobin of 13. Potassium is 4.0, creatinine is 0.93. Total b ilirubin of 0.7. Abdominal ultrasound shows cholelithiasis, no sonographic evidence of acute cholecy stitis per radiologist and CAT scan of the abdomen and pelvis per . shows adnexal cystic lesion 1 cm, suggest recently ruptured follicle. There is a dominant right pelvic thin wall ovoid c ystic structure 4.5 x 3.2 cm. Also collapsed left adnexa 1.5 cm seen. No dilated bowel loops. No f ree air. No hernia, masses. Liver, spleen, adrenal, pancreas, no suspicious finding. Assessment: This is a 32-year-old patient, abdominal pain, maybe multifactorial. It seems to be thi s morning, she ate yesterday, she did not eat this morning when the pain comes in, so I am not sure i t is just gallbladder, maybe a combination of the adnexal and the gallbladder at the same time, so ruba reynoso was admitted for observation. She fully understands the options of either surgery during this admi ssion or electively if she improved and the surgery might be lap choly, possible open, if we can conn ect symptoms to the gallbladder. The benefits, alternatives, and risks of this decision discussed wi th the patient. MIESHA/KATHERINE Voice ID: [id number] Report ID: [id number]
[2023-05-09] MEDS: DIPHENHYDRAMINE 25 MG TAB/CAP PO ONE (21:58)
[2023-05-09] MEDS: BUSPIRONE HCL 5 MG TABLET PO SCH (23:35)
[2023-05-09] MEDS: TRAZODONE 50 MG TABLET PO SCH (23:35)
[2023-05-10 09:58] LABS: Absolute Lymphocytes (CBC) 1.1 K/uL (0.7-4.9); Hematocrit 32.2 % (36.0-45.0); Lymphocytes % 24.6 % (15.3-44.8); MCV 89.3 fL (80-100); MPV 9.6 fL (7.6-11.3); Platelets 207 thou/uL (152-406)
--- NOTE | 2023-05-10 11:02 | P.PN ---
Date of Service: 05/10/23 Subjective: Still having right-sided abdominal pain/tenderness Some nausea, no vomiting ROS: 10 point ROS as noted above, otherwise negative Physical exam GEN: Alert, oriented, NAD HEENT: Normal conjunctiva, sclera anicteric CV: Regular rate and rhythm, no edema Pulm: Nonlabored respirations on room air ABD: Soft, mild/mod right sided abd tenderness MSK: No joint tenderness Integumentary: No rashes Neuro: Normal speech, normal affect Vitals reviewed Problem List Assessment and plan Abdominal tenderness, cholelithiasis CT shows adnexal cyst-possibly recently ruptured Possibly contributing to pain/peritonitis Additionally ultrasound shows cholelithiasis Continue empiric antibiotics, as needed pain medications and antiemetics Serial abdominal exams Appreciate further input from general surgery-possible cholecystectomy DVT PPX: SCDs 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
[2023-05-10 11:37] LABS: Albumin 3.2 g/dL (3.4-5.0); Bilirubin Total 0.6 mg/dL (0.2-1.0); Potassium 3.9 mEq/L (3.5-5.1); Protein, Total 6.6 g/dL (6.4-8.2)
[2023-05-10] MEDS: MORPHINE 2 MG/ML SYR IV ONE (13:25)
[2023-05-10] MEDS: Ringers Lactate 1,000 ML IV ONE (13:48)
--- NOTE | 2023-05-10 14:31 | PN ---
Date of Progress Note: 05/10/2023 Subjective: Ms. Ramirez comes to us with different problems, the main one is epigastric upper quadr ant pain radiating to the back. It has been like that for several weeks. It got worse when she ate some [place] food. Earlier this week, she ate some Lasagna. Did come to us, but the pain was mainly in the right abdomen, not only the right upper quadrant, but also mid abdomen and right lower, found to have also an ovarian cyst. The patient was admitted overnight for observation, today got worse. She has been using morphine and Dilaudid and the pain moves mainly to the right upper quadrant. The re is nausea. No vomiting today, but she is not improving. Objective: Chest: Clear. Abdomen: Soft and depressible. Epigastric right upper quadrant pain with Britton sign positive. No right lower quadrant tenderness today. Laboratory Data: Blood work shows WBC count of 4.3, hemoglobin of 10.8, and platelets of 207. Ultra sound interpreted by Dr. Salmeron shows gallbladder with multiple shadowing gallstones. Common bile duct is 2 mm. CAT scan of the abdomen and pelvis interpreted by Dr. Salmeron again showing no acute intraabdominal process. Adnexal cystic lesions, probably recent rupture of follicles, but as per him , likely physiologic in nature. The patient also has some other ovarian cysts, bilateral. She was a dvised the importance of seeing her neuropathologist. Assessment: This is a 32-year-old patient with epigastric right upper quadrant pain, Britton sign pos itive. Exacerbation of symptoms in the right upper quadrant. She got worse when she ate some Ch[place] e foot and Lasagna too. Yesterday, she was admitted for observation because there was also question of ovarian cyst, but today the pain moved to the right upper quadrant to the point that she is using morphine and Dilaudid for pain control. In that case, I discussed the case with the primary, discuss ed case with the patient. We cannot have the option of diagnostic laparoscopy since the symptoms wer e worse with a specific explanation of that amount of pain. She also wants the gallbladder removed s han we have gallstones and the pain resemble the biliary colic, so the benefits, alternatives, and r isks of laparoscopic, possible open cholecystectomy were fully explained, which include, but not limi pradeep to infection, bleeding, damage to adjacent structures, anesthesia complication, choledocholithias is, bile leak, pancreatitis, NV, and even . She also understands this may not relieve symptoms. She might need more than one surgical intervention. She also understands that we may be able to lo calize the area of ovary, sometimes it is not possible. She is to have hysterectomy. May have some scar tissue, but if possible, we will try to take a look at that area to see we can add some light in to the findings in that region and eventually she may have to find a neuropathologist to help her with th at. She understood. She does not want to wait keep observing. She wants to go for the cholecystect alex now, so patient was booked in OR. MIESHA/KATHERINE Voice ID: [id number] Report ID: [id number]
[2023-05-10] MEDS ORDERED: LIDOCAINE 1% MPF 5 ML VIAL ONE ×2 (14:35→14:37)
[2023-05-10] MEDS ORDERED: MIDAZOLAM HCL 2 MG/2 ML INJ ONE (14:35)
[2023-05-10] MEDS ORDERED: propofoL 200 MG/20 ML VIAL IV ONE (14:35)
[2023-05-10] MEDS ORDERED: FENTANYL CITR 100 MCG/2 ML ONE (14:35)
[2023-05-10] MEDS ORDERED: ONDANSETRON 4 MG/2 ML VIAL ONE ×2 (14:36→14:37)
[2023-05-10] MEDS ORDERED: ROCURONIUM 50 MG/5 ML VIAL IV ONE (14:36)
[2023-05-10] MEDS ORDERED: dexAMETHasone 4 MG/ML VIAL ONE ×2 (14:36→14:38)
[2023-05-10] MEDS ORDERED: GLYCOPYRROLATE 0.2 MG/ML SYR ONE (14:37)
[2023-05-10] MEDS ORDERED: KETOROLAC 30 MG/ML INJ ONE (14:37)
[2023-05-10] MEDS ORDERED: NEOSTIGMINE 1 MG/ML -10 ML VIAL ONE (14:38)
--- NOTE | 2023-05-10 15:39 | P.BOP ---
Preoperative diagnosis: acute cholecystitis, symptomatic cholelithiasis, intractable RUQ pain Postoperative diagnosis: same plus ovarian cyst Primary procedure: Diagnostic laparoscopy, laparoscopic cholecystectomy Estimated blood loss: <10cc Specimen: gb Findings: see dicta Complications: None Transferred to: Recovery Room Condition: Good
[2023-05-10] MEDS: HYDROMORPHONE HCL 1 MG/ML INJ ONE (15:48)
[2023-05-10 16:19] VITALS: O2SAT 100
[2023-05-10] MEDS: MORPHINE 4 MG/ML SYR IV PRN (16:46)
--- NOTE | 2023-05-10 17:02 | OP ---
Date of Procedure: 05/10/2023 Surgeon: Nikita Shah MD Preoperative Diagnoses: Acute cholecystitis, intractable right upper quadrant abdominal pain, sympto matic cholelithiasis, ovarian cyst. Postoperative Diagnoses: Acute cholecystitis, intractable right upper quadrant abdominal pain, sympt omatic cholelithiasis, ovarian cyst. Procedures: Diagnostic laparoscopy, laparoscopic cholecystectomy. Anesthesia: General plus local. Findings: We have 2 issues. We look at the area of the gallbladder, it looks edematous. Some adhes ions to it. It looks inflamed with cholecystitis and distended, so that on top of her intractable ri ght upper quadrant pain, recurrence, postprandial, and also with the gallstone showing on the gallbla dder obviously leading to the belief that it may be symptomatic cholelithiasis involved so the gallbl adder surgery was done. At the same time as we promised her, we are going to take a look at the righ t ovary. There is a questionable ovarian cyst in that area. What we see is that the ovarian cyst an d ovary itself looks a little bit twisted, looks like the ovarian cyst has been pulled down inferiorl y and the ovary cyst on top, so we did not have to remove that. We just took a bunch of pictures to show to the personal lines underwriter, accommodate them in a way, so it did not look pulling apart that may be the cause of pain. So, what we did is just basically we took the tension away from the cyst and from th e ovary, positioned in a way that is more anatomical and that hopefully will give her some relief. Complications: None. Indications: This is a case of a female, who comes to us with persistent right upper quadrant pain t o the point that she has to come to the ER. Exacerbated by Lasagna and also [place] food this week. At the same time, she comes not only with that pain, but also with pain in the right lower quadrant. There was claim to be an ovarian cyst. They are not sure if this ruptured or not. She tried overn ight and see if she can improve, but today she was getting worse. She was getting to the point that she needed morphine and Dilaudid to control her pain. The etiology of that pain is not really clear. I discussed the case with the family with the patient and with the primary doctors and the consensu s was to do a diagnostic laparoscopy, but if we are going to go there since she has noticed the gallb ladder is giving her trouble, to also do a cholecystectomy. Regarding the ovarian cyst, I may take p ictures and may take a look at that area, but she understand we have no personal lines underwriter television host, so I am going to take some pictures and then after that she is going to have to get a personal lines underwriter to help h er electively. The benefits, alternatives, and risks of diagnostic laparoscopy; laparoscopic, possib le open cholecystectomy were fully explained, which include, but not limited to infection, bleeding, damage to adjacent structures, anesthesia complication, choledocholithiasis, bile leak, pancreatitis, SD, and even . She also understands this may not relieve the symptoms. She might need more th an one surgical intervention. She understood, signed a consent. Description Of Procedure: The patient was brought to the operating room, placed in supine position. Anesthesia was done without complication. Abdominal area was prepped and draped in usual sterile fa shion. Marcaine 0.5% was injected for local anesthetic followed by sharp incision of the skin in the infraumbilical region. Incision was carried down to fascia, which was opened under direct vision. Peritoneum was encountered, opened under direct vision. Vicryl #1 was placed inside the fascia. Has son trocar was carefully introduced and pneumoperitoneum was obtained. I placed 3 more trocars, 5 mm each of them, 1 in epigastric area, 2 in the right upper quadrant under direct visualization. This allowed me to visualize the abdomen first. We looked at the small bowel and large bowel. We did not see any extraluminal masses. Stomach looks soft and compressible. Left side and right side of the liver are at least extracapsular and anteriorly we did not see any masses. In the area of the gallbl adder, we saw an inflamed distended gallbladder with omental adhesions to it. We will address that i ssue eventually. In the area of the lower abdomen, we noticed that there is an ovary and ovarian cys t. The ovarian cyst is bigger than the ovary. It looks translucent, but the problem is that the letty t of the ovarian cyst has been pulled underneath to go inferiorly and the ovary edges were crossing o addi creating some tension in that area, may be contributing to limit of the pain down there. So, I t ook pictures of it. The ovaries looks with no masses and the cyst looks translucent, so I put them i n a way so they are not finding each other and pulling and crossing each other and in anatomic way, christopher page was my contribution in that region. She may have to have this formally addressed if that continu ed to be an issue. At that moment, we took a look at the pelvis. We have no mass in that region, so I went to the area of the right upper quadrant and then put a grasper in the fundus of the gallbladd er, another grasper in the infundibulum, retracted the gallbladder in the inferolateral fashion expos ing the triangle of Calot, obtaining critical view. Cystic duct and cystic artery were clearly isola pradeep, freed circumferentially, and a connection between those and the gallbladder were clearly identif ied. I proceeded to ligate those by using at least 3 clips proximal, 1 clip distal, ligation in midd le. Same was done with the cystic artery. No bile leak. No bleeding. The gallbladder was removed from liver using Bovie cauterizer and removed from abdominal cavity using EndoCatch through the umbil ical incision. We inspected the area once again. No bile leak. No bleeding. At that moment, I pro ceeded to remove the trocars under direct vision. Deflated pneumoperitoneum. Closed the fascia with #1 Vicryl. Irrigated subcutaneous tissue, closed with 3-0 chromic, and skin with siri. Sponge c ount and instrument count were correct. Patient tolerated the procedure well. Patient was sent to r ecovery in stable condition. MIESHA/KATHERINE Voice ID: [id number] Report ID: [id number]
[2023-05-10] MEDS: HYDROCODONE/APAP 5/325 MG TAB PO PRN (18:21)
[2023-05-11] MEDS: KETOROLAC 30 MG/ML INJ IV PRN (01:01)
[2023-05-11] MEDS: HYDROMORPHONE HCL 0.5 MG/0.5 ML INJ IV PRN (03:27)
[2023-05-11] MEDS: DIPHENHYDRAMINE 50 MG/ML VIAL IV PRN (03:28)
[2023-05-11 03:40] LABS: Absolute Lymphocytes (CBC) 0.6 K/uL (0.7-4.9); Hematocrit 31.7 % (36.0-45.0); Lymphocytes % 9.7 % (15.3-44.8); MCV 89.6 fL (80-100); MPV 9.1 fL (7.6-11.3); Platelets 226 thou/uL (152-406); RBC Red Blood Cell Count 3.54 M/uL (3.86-4.86)
[2023-05-11 04:13] LABS: Albumin 3.2 g/dL (3.4-5.0); Bilirubin Total 0.5 mg/dL (0.2-1.0); Potassium 4.8 mEq/L (3.5-5.1); Protein, Total 6.6 g/dL (6.4-8.2)
--- NOTE | 2023-05-11 13:00 | P.PN ---
Date of Service: 05/11/23 Subjective: Still having right-sided abdominal pain/tenderness Some nausea, no vomiting Still requiring IV pain meds for severe abdominal pain after surgery Weaning IV pain meds ROS: 10 point ROS as noted above, otherwise negative Physical exam GEN: Alert, oriented, NAD HEENT: Normal conjunctiva, sclera anicteric CV: Regular rate and rhythm, no edema Pulm: Nonlabored respirations on room air ABD: Soft, mild/mod right sided abd tenderness MSK: No joint tenderness Integumentary: No rashes Neuro: Normal speech, normal affect Vitals reviewed Assessment and plan Abdominal tenderness, Acute cholecystitis S/P laparoscopic cholecystectomy Continue empiric antibiotics, as needed pain medications and antiemetics Still with significant right abdominal pain after surgery-mildly improved Requiring IV pain medications, stating still having significant pain after oral meds Continue to advance diet, wean IV pain meds DVT PPX: SCDs 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
--- NOTE | 2023-05-11 13:00 | P.PN ---
Subjective Date of Service: 05/11/23 Chief Complaint: Cholelithiasis, vomiting Subjective: Ambulating, Improving Review of Systems Respiratory: Unremarkable Gastrointestinal: Vomiting (no) Physical Examination - Vital Signs Temperature: 97.7 F Blood Pressure: 92/59 Pulse: 74 Respirations: 18 Pulse Ox (%): 100 - Physical Exam General: Alert, In no apparent distress, Oriented x3, Cooperative HEENT: Normocephalic, PERRLA Neck: Supple Respiratory: Normal air movement Cardiovascular: No edema Gastrointestinal: Soft and benign Neurological: Normal speech Assessment And Plan - Plan oob advance diet then d/h scd ambulate incentive spirometry
[2023-05-12 06:58] LABS: Absolute Lymphocytes (CBC) 1.3 K/uL (0.7-4.9); Hematocrit 29.2 % (36.0-45.0); Lymphocytes % 37.1 % (15.3-44.8); MCV 89.4 fL (80-100); MPV 8.8 fL (7.6-11.3); Platelets 198 thou/uL (152-406); RBC Red Blood Cell Count 3.26 M/uL (3.86-4.86)
[2023-05-12 07:21] LABS: Albumin 2.7 g/dL (3.4-5.0); Bilirubin Total 0.4 mg/dL (0.2-1.0); Potassium 3.7 mEq/L (3.5-5.1); Protein, Total 5.8 g/dL (6.4-8.2)
[2023-05-12 10:56] VITALS: TEMP 97.6
[2023-05-12 13:16] VITALS: BP 108/72
--- NOTE | 2023-05-12 13:25 | P.DS ---
Admission Date: 05/11/23 Discharge Date: 05/12/23 Disposition: ROUTINE DISCHARGE Discharge Condition: GOOD Reason for Admission: Cholelithiasis, vomiting Consultations: General surgery-Dr. Shah Procedures: Laparoscopic Cholecytectomy Brief History of Present Illness: 32-year-old female with history of anxiety/depression presents emergency department chief complaint of right upper quadrant and right lower quadrant abdominal pain. She reports that on 05/07/2023 she ate Vincentian food in the evening and after that had an episode of vomiting, she had some mild abdominal pain on during the day but improved in the evening, she was able to tolerate lasagna last night. This morning she woke up with significant right upper and right lower quadrant abdominal pain. She was evaluated in the emergency department her labs were unremarkable. Chest x-ray showed medial hazy right basilar opacification, favored to reflect atelectasis or superposition of soft tissues. CT abdomen pelvis was also performed which was significant for adnexal cystic lesions, 1 of which suggest a recently ruptured follicle, both are likely of physiologic nature. Additionally an abdominal ultrasound was performed which showed cholelithiasis without signs of cholecystitis. Patient was significant abdominal pain still after receiving multiple rounds of pain medication, ED provider wishes to admit under observation for abdominal tenderness, cholelithiasis Hospital Course: Plan Abdominal tenderness, Acute cholecystitis S/P laparoscopic cholecystectomy Patient was admitted to the hospital for right-sided abdominal pain/tenderness and cholelithiasis. After further evaluation by surgery given patient's degree of persistent pain and physical exam findings she was taken to the operating to evaluate for cholecystitis. Patient was found to have cholecystitis, laparoscopic cholecystectomy was performed on 05/10/2023. After surgery patient's pain has improved, tolerating diet and she has been cleared for discharge and follow-up with general surgery on the . Of note LFTs were mildly elevated (AST 154, ALT 147) on day of discharge-this is likely secondary to cauterization of the liver bed while removing the gallbladder. New medications: Augmentin 875mg mouth twice daily for 7 days Hydrocodone 7.5mg as needed for pain Continue other home medications as prescribed previously Follow-up with your primary care doctor in 1 to 2 weeks Follow-up with Dr. Shah on Friday the Vital Signs/Physical Exam: Temp Pulse Resp BP Pulse Ox 97.6 F 100 H 17 108/72 97 05/12/23 08:00 05/12/23 13:01 05/12/23 13:08 05/12/23 13:01 05/12/23 13:08 General: Alert, In no apparent distress, Oriented x3 HEENT: Atraumatic, PERRLA Neck: Supple, JVD not distended Respiratory: Clear to auscultation bilaterally, Normal air movement Cardiovascular: Regular rate/rhythm, Normal S1 S2 Gastrointestinal: Normal bowel sounds Musculoskeletal: No tenderness Integumentary: No rashes Neurological: Normal speech, Normal tone, Normal affect Laboratory Data at Discharge: WBC 3.50 thou/uL (4.3-10.9) L 05/12/23 06:26 Hgb 10.0 g/dL (12.0-15.0) L D 05/12/23 06:26 Hct 29.2 % (36.0-45.0) L 05/12/23 06:26 Plt Count 198 thou/uL (152-406) 05/12/23 06:26 Sodium 141 mEq/L (136-145) D 05/12/23 06:26 Potassium 3.7 mEq/L (3.5-5.1) D 05/12/23 06:26 BUN 4 mg/dL (7-18) L 05/12/23 06:26 Creatinine 0.67 mg/dL (0.55-1.02) 05/12/23 06:26 Glucose 81 mg/dL (74-106) 05/12/23 06:26 Total Bilirubin 0.4 mg/dL (0.2-1.0) 05/12/23 06:26 AST 154 U/L (15-37) H 05/12/23 06:26 ALT 147 U/L (13-56) H 05/12/23 06:26 Alkaline Phosphatase 107 U/L (45-117) D 05/12/23 06:26 Lipase 37 U/L (13-75) 05/09/23 11:20 Home Medications: Bupropion HCl [Wellbutrin] 75 mg PO DAILY 05/09/23 Buspirone HCl [Buspar] 15 mg PO BID 05/09/23 Pantoprazole [Protonix Tab*] 40 mg PO DAILY 05/09/23 Trazodone [Desyrel*] 75 mg PO BEDTIME 05/09/23 Amox/Clavulanate [Augmentin 875-125 Tab] 875 mg PO BID 7 Days #14 tab 05/12/23 Hydrocodone 7.5/APAP 325 [[place] 7.5/325 mg] 1 tab PO Q6H PRN #15 tab 05/12/23 New Medications: Amox/Clavulanate [Augmentin 875-125 Tab] 875 mg PO BID 7 Days #14 tab Hydrocodone 7.5/APAP 325 [[place] 7.5/325 mg] 1 tab PO Q6H PRN #15 tab PRN Reason: Pain Physician Discharge Instructions: Patient was admitted to the hospital for right-sided abdominal pain/tenderness and cholelithiasis. After further evaluation by surgery given patient's degree of persistent pain and physical exam findings she was taken to the operating to evaluate for cholecystitis. Patient was found to have cholecystitis, laparoscopic cholecystectomy was performed on 05/10/2023. After surgery patient's pain has improved, tolerating diet and she has been cleared for discharge and follow-up with general surgery on the . Of note LFTs were mildly elevated (AST 154, ALT 147) on day of discharge-this is likely secondary to cauterization of the liver bed while removing the gallbladder. New medications: Augmentin 875mg mouth twice daily for 7 days Hydrocodone 7.5mg as needed for pain Continue other home medications as prescribed previously Follow-up with your primary care doctor in 1 to 2 weeks Follow-up with Dr. Shah on Friday the Diet: low fat Activity: Ad kezia Followup: Nikita Shah MD [ACTIVE - CAN ADMIT] - 05/16/23 Ovi Herrera FNP [Primary Care Provider] - 1-2 Weeks Time spent managing pt's care (in minutes): 30
== END 2023-05-12 13:26 | disposition home or self-care (01) | DRG 419 ==
LOC: ER 10:11 → ERHOLD 14:08 → 2ND 16:07 → OBSVTOIN 05-11 12:56
PROVIDERS: ADMIT Hospitalist; ATTEND Hospitalist
PROC: 0FT44ZZ Resection of Gallbladder, Percutaneous Endoscopic Approach (ICD-10-PCS; principal; 2023-05-10 14:45)
DX: K80.00 Calculus of gallbladder with acute cholecystitis without obstruction (principal); N83.201 Unspecified ovarian cyst, right side; N83.202 Unspecified ovarian cyst, left side; Z98.51 Tubal ligation status; Z90.710 Acquired absence of both cervix and uterus
CPT/HCPCS: 36415; 71045; 74177; 76705; 80053; 81001; 83690; 84484; 85025; 93005; 94010; 96374; 96375; 99285; J1100; J1170; J1200; J2001; J2250; J2270; J2405; J2543; J2704; J2710; J3010; J7030; J7120; Q9967

== ENCOUNTER 2024-04-04 17:35 | Emergency (ER) | payer OTHER ==
--- OUTSIDE RECORDS SUMMARY | 2024-04-04 17:39 | XMS REPORT | Continuity of Care Document ---
Author Name Unknown Address [address] [facility] [address] [place] [address] [facility] Address [address] [facility] [place] [address] Care Team Providers Care Weaver Wire Loom Name Role Phone JACI MELVIN Primary Care Physician Leeann Hinton Attending Clinician Susy Lemos Attending Clinician UnavailBONITA Diggs Attending Clinician Unavailable Bonita Strong MD Attending Clinician [phone] Enrrique Alvarado Attending Clinician Unavailmelody Terrell_W Attending Clinician Unavailable SOPHIE_HÉCTOR_Francisco Javier_Panfilo Attending Clinician UnavailKiersten Garcia Attending Clinician UnavailJACI Croft Attending Clinician STEFANIE Wilson Attending Clinician Unavailable Enrrique Alvarado Admitting Clinician UnavailKiersten Hill Admitting Clinician Unavaila ble Xander_W Admitting Clinician Unavailable SOPHIE_HÉCTOR_Francisco Javier_Panfilo Admitting Clinician Unavaila ble Payers Payer Name Policy Type Policy Number Effective Date Expirati on Date Source [facility] [id number] 2020 00:00:00 [facility] 3 (HMO) [id number] [facility] (EPO) [id number] Problems Condition Name Condition Details Condition Category Status Onset Date Resolution Date Last Treatment Date Treating Clinician Comments Source Tinea versicolor Tinea versicolor Disease Active 2015-03 00:00: 00 [facility] Anxiety Anxiety Disease Active 2014-03 00:00: 00 [facility] Allergies, Adverse Reactions, Alerts Allergy Name Allergy Type Status Severity Reaction(s) Onset Date Inactive Date Treating Clinician Comments Source No Known Allergie s DA Active U 11-11 00:00: 00 [facility] No Known Allergie s DA Active U 04-18 00:00: 00 [facility] [place] No Known Allergie s DA Active U 04-13 00:00: 00 [facility] NO KNOWN ALLERGIE S Drug Class Active [facility] Social History Social Habit Start Date Stop Date Quantity Comments Source History of tobacco use Cigarette Smoker [facility] Alcohol intake 2021-10-02 00:00:00 2021-10-02 00:00:00 .14 /d [facility] History of Social function 2020-08-15 00:00:00 2020-08-15 00:00:00 [facility] Tobacco use and exposure 2016-01-02 00:00:00 2016-01-02 00:00:00 Smokeless tobacco non-user [facility] Sex Assigned At 1990 00:00:00 1990 00:00:00 [facility] Smoking Status Start Date Stop Date Source Ex-smoker 2016-01-02 00:00:00 2016-01-02 00:00:00 U [facility] Medications Ordered Medication Name Filled Medication Name Start Date Stop Date Current Medication? Ordering Clinician Indication Dosage Frequency Signature (SIG) Comments Components Source escitalopra m oxalate 10 mg tablet 11-02 00:00: 00 Yes [id number] 15mg Take 1.5 tablets by mouth daily. [facility] TRAZODONE 50 mg tablet 10-26 00:00: 00 Yes [id number] TAKE ONE TABLET BY MOUTH AT BEDTIME [facility] ketoconazol e 200 mg tablet 04-20 00:00: 00 Yes [id number] Take a dose now and repeat in one week [facility] Encounters Start Date/Time End Date/Time Encounter Type Admission Type Attending Clinicians Care Facility Care Department Encounter ID Source 2023-11-26 09:43:00 2023-11-26 09:43:00 Outpatient Leeann Hemphill [facility] [id number] [facility] 2023-11-12 17:52:00 2023-11-12 22:05:00 Emergency EM Susy Villa [facility] [id number] [facility] 2023-03-01 22:06:00 2023-03-01 22:25:00 Emergency X BONITA STRONG [facility] ERT [id number] [facility] 2023-03-01 22:06:00 2023-03-01 22:25:00 Emergency Bonita Strong S [facility] [id number] [facility] 2023-01-31 08:43:00 2023-01-31 08:43:00 Outpatient Enrrique Betancur [facility] [id number] 22 [facility] [place] 2023-01-31 08:43:00 2023-01-31 08:43:00 Outpatient Enrrique Betancur [facility] [id number] 22 [facility] [place] 2023-01-27 18:14:00 2023-01-27 18:14:00 Outpatient Enrrique Alvarado [facility] [id number] [facility] [place] 2022-07-15 00:00:00 2022-07-15 00:00:00 Outpatient Yan_W [facility] [id number] [facility] 2022-07-15 00:00:00 2022-07-15 00:00:00 Outpatient Yan_W MMG MMG [id number] [facility] 2022-05-15 00:00:00 2022-05-15 00:00:00 Outpatient GC_SWHASA_R amirez_C [facility] [id number] [facility] 2022-04-29 09:52:00 2022-04-30 14:13:00 Inpatient Colin Salvadorsa [facility].01 [id number] [facility] 2020-08-15 13:30:00 2020-08-15 13:30:00 Outpatient JACI GARCIA [facility] [id number] [facility] 2020-04-20 11:15:00 2020-04-20 11:15:00 Outpatient JACI GARCIA [facility] [id number] [facility] 2020-04-01 16:40:00 2020-04-01 16:40:00 Outpatient STEFANIE HWANG [facility] [id number] [facility] 2019-10-26 13:45:00 2019-10-26 13:45:00 Outpatient JACI GARCIA [facility] [id number] [facility] Results Test Description Test Time Test Comments Results Result Co mments Source PROTHROMBIN [id number] 15:18:00* Test Item Value Reference Range Interpretation Comme nts PROTHROMBIN TIME PATIENT (te st code = PTP) 11.6 secs 9.8-13.3 N THROMBOPLASTIN TIME [id number] 15:18:00* Test Item Value Reference Range Interpretation Comme nts THROMBOPLASTIN TIME PARTIAL (test code = PTT) 32 secs 26.2-37.2 N HCG SERUM [id number] 15:16:00* Test Item Value Reference Range Interpretation Comme nts HCG SERUM QUAL (test code = HCGQL) NEGATIVE CBC W/AUTO [id number] 14:59:00* Test Item Value Reference Range Interpretation Comme nts WHITE BLOOD CELL (test code = WBC) 7.0 K/mm3 6.5-12.3 N RED BLOOD CELL (test code = RBC) 4.01 M/mm3 3.51-4.69 N HEMOGLOBIN (test code = HGB) 12.2 g/dL 10.1-13.8 N HEMATOCRIT (test code = HCT) 36.0 % 32.5-41.8 N MEAN CELL VOLUME (test code = MCV) 89.8 fL 84.6-96.6 N MEAN CELL HGB (test code = MCH) 30.4 pg 27.3-33.9 N MEAN CELL HGB CONCETRATION ( test code = MCHC) 33.9 gm/dL 32.0-34.2 N RED CELL DISTRIBUTION WIDTH (test code = RDW) 11.7 % 12.2-16.3 L PLATELET COUNT (test code = PLT) 257 K/mm3 134-363 N MEAN PLATELET VOLUME (test c ode = MPV) 11.2 fL 9.2-12.7 N NEUTROPHIL % (test code = NT%) 63.4 % 57.9-77.3 N LYMPHOCYTE % (test code = LY%) 25.2 % 14.5-29.7 N MONOCYTE % (test code = MO%) 6.6 % 3.6-10.2 N EOSINOPHIL % (test code = EO%) 4.3 % 0.0-3.0 H BASOPHIL % (test code = BA%) 0.4 % 0.1-0.9 N NEUTROPHIL # (test code = NT#) 4.4 K/mm3 LYMPHOCYTE # (test code = LY#) 1.8 K/mm3 MONOCYTE # (test code = MO#) 0.5 K/mm3 EOSINOPHIL # (test code = EO#) 0.30 K/mm3 BASOPHIL # (test code = BA#) 0.0 K/mm3 UA RFLX MICR CULT IF [id number] 19:34:00* Test Item Value Reference Range Interpretation Comme nts UA COLOR (test code = COLU) YELLOW YELLOW UA APPEARANCE (test code = APPU) CLEAR CLEAR UA GLUCOSE DIPSTICK (test co de = DGLUU) NEGATIVE NEG UA BILIRUBIN DIPSTICK (test code = BILU) NEGATIVE NEG UA KETONE DIPSTICK (test cod e = KETU) NEGATIVE NEG UA SPECIFIC GRAVITY (test co de = SGU) 1.010 1.001-1.035 N UA BLOOD DIPSTICK (test code = DELGADO) NEG NEG UA PH DIPSTICK (test code = MIRANDA) 6.0 5-9 UA PROTEIN DIPSTICK (test co de = PROU) NEGATIVE NEG UA UROBILINIOGEN DIPSTICK (test code = URO) NEGATIVE mg/dL NEG UA NITRITE DIPSTICK (test co de = ZEKE) NEG NEG UA LEUKOCYTE ESTERASE DIPSTI CK (test code = LEUU) NEG NEG UA WBC (test code = WBCU) 0-2 #/hpf NONE SEEN UA RBC (test code = RBCU) 0-2 #/hpf NONE SEEN UA EPITHELIAL CELLS (test co de = EPIU) RARE #/HPF RARE-FEW UA BACTERIA (test code = BACU) RARE /HPF RARE-FEW UA MUCUS (test code = MUCU) RARE NONE SEEN Indication for culture: RiskForSepsis-no oth srcSpecimen Description: RANDOM COMPREHENSIVE METABOLIC [id number] 19:27:00* Test Item Value Reference Range Interpretation Comme nts SODIUM (test code = NA) 138 mEq/L 136-145 N POTASSIUM (test code = K) 3.9 mEQ/L 3.4-4.5 N Please note new normal range as of July 2023 CHLORIDE (test code = CL) 107 mEq/L 98-107 N Please note new normal range as of July 2023 CARBON DIOXIDE (test code = CO2) 26 mEq/L 22-31 N ANION GAP (test code = GAP) 8.9 10-20 L GLUCOSE (test code = GLU) 86 mg/dL 74-106 N Please note new normal range as of July 2023 BLOOD UREA NITROGEN (test code = BUN) 14 mg/dL 8-23 N Please note ne w normal range as of July 2023 CREATININE (test code = CREAT) 0.8 mg/dL 0.55-1.02 N Please note new normal range as of July 2023 TOTAL PROTEIN (test code = PROT) 7.4 g/dL 5.7-8.2 N Please note new normal range as of July 2023 ALBUMIN (test code = ALB) 4.4 g/dL 3.2-4.8 N Please note new normal range as of July 2023 CALCIUM (test code = CA) 8.6 mg/dL 8.3-10.6 N Please note new normal range as of July 2023 BILIRUBIN TOTAL (test code = BILT) 0.2 mg/dL 0.3-1.2 L Please note n ew normal range as of July 2023 SGOT/AST (test code = AST) 16 units/L < 34 SGPT/ALT (test code = ALT) 8 units/L 10-49 L ALKALINE PHOSPHATASE TOTAL (test code = ALKP) 65 units/L 46-116 N Please note n ew normal range as of July 2023 GLOMERULAR FILTRATION RATE (test code = GFR) 100.33 ml/min >60 N The Glomerular Filtration Rate is a calculated parameterbased on serum Creatinine, patient age and sex. GFR valuesless than 60 mL/min/1.73 square meters are indicative ofChronic Kidney Disease. Values less than 15 mL/min/1.73square meters indicate Kidney failure. The calculation forGFR is based on the CKD-EPI (2020) calculation. This formulais race indifferent and is the recommended formula for GFRby the National Kidney Foundation for Adults.The GFR will not calculate if the sex is unknown or if thepatient's age is <18 years. HCG SERUM [id number] 19:27:00* Test Item Value Reference Range Interpretation Comme nts HCG SERUM QUAL (test code = HCGQL) NEGATIVE CBC W/AUTO [id number] 19:01:00* Test Item Value Reference Range Interpretation Comme nts WHITE BLOOD CELL (test code = WBC) 6.7 K/mm3 6.5-12.3 N RED BLOOD CELL (test code = RBC) 3.82 M/mm3 3.51-4.69 N HEMOGLOBIN (test code = HGB) 11.7 g/dL 10.1-13.8 N HEMATOCRIT (test code = HCT) 34.0 % 32.5-41.8 N MEAN CELL VOLUME (test code = MCV) 89.0 fL 84.6-96.6 N MEAN CELL HGB (test code = MCH) 30.6 pg 27.3-33.9 N MEAN CELL HGB CONCETRATION ( test code = MCHC) 34.4 gm/dL 32.0-34.2 H RED CELL DISTRIBUTION WIDTH (test code = RDW) 11.7 % 12.2-16.3 L PLATELET COUNT (test code = PLT) 269 K/mm3 134-363 N MEAN PLATELET VOLUME (test c ode = MPV) 10.9 fL 9.2-12.7 N NEUTROPHIL % (test code = NT%) 56.9 % 57.9-77.3 L LYMPHOCYTE % (test code = LY%) 33.9 % 14.5-29.7 H MONOCYTE % (test code = MO%) 6.4 % 3.6-10.2 N EOSINOPHIL % (test code = EO%) 2.4 % 0.0-3.0 N BASOPHIL % (test code = BA%) 0.3 % 0.1-0.9 N NEUTROPHIL # (test code = NT#) 3.8 K/mm3 LYMPHOCYTE # (test code = LY#) 2.3 K/mm3 MONOCYTE # (test code = MO#) 0.4 K/mm3 EOSINOPHIL # (test code = EO#) 0.16 K/mm3 BASOPHIL # (test code = BA#) 0.0 K/mm3 - ABDOMEN [id number] 11:00:00 [facility] 1990 Sex: F Name: JUNE GALLARDO [facility] : 1990 Age/S: 32 / F [id number] [facility] Unit #: [id number] Loc: [place] [address] Phys: Enrrique Alvarado MD Acct: [id number] Dis Date: Status: DEP CLI PHONE #: [phone] Exam Date: 01/31/2023 0943 FAX #: Reason: EPIGASTRIC PAIN EXAMS: CPT: [id number] US ABDOMEN COMPLETE 26229 S 17 TIME OF STUDY: 01/31/2023 8:47 AM REASON FOR EXAM: EPIGASTRIC PAINCOMPARISON: None. TECHNIQUE: Complete abdominal sonogram. B-mode grayscale, color Doppler, and spectral Doppler images are obtained. FINDINGS: The liver is normal in size, shape and echotexture. There are no focal lesions. No intra or extrahepatic biliary dilatation is present. The common bile ductis not dilated and measures 2 mm.] Portal [...] CC: Enrrique Alvarado MD Technologist: Maia Horvath Trnscb Date/Time: 01/31/2023 (1100) [email or web address] PAGE 1 Signed Report Name: JUNE GALLARDO [place] : 1990 Age/S: 32 / [id number] [facility] Unit #: [id number] Loc: [place] [address] Phys: Enrrique Alvarado MD Acct: [id number] Dis Date: Status: DEP CLI PHONE #: [phone] Exam Date: 01/31/202343 FAX #: Reason: EPIGASTRIC PAIN EXAMS: CPT: [id number] US ABDOMEN COMPLETE [id number] (Continued) Orig Print D/T: S: 023 (1104) Probe: PAGE 2 Signed Report- US ABDOMEN [id number] 11:00:00 [facility] 1990 Sex: F Name: JUNE GALLARDO [facility] : 1990 Age/S: 32 / F [id number] [facility] Unit #: [id number] Loc: [place] [address] Phys: Enrrique Alvarado MD Acct: [id number] Dis Date: Status: REG CLI PHONE #: [phone] Exam Date: 01/31/202343 FAX #: Reason: EPIGASTRIC PAIN EXAMS: CPT: [id number] US ABDOMEN COMPLETE 44362 S 17 TIME OF STUDY: 01/31/2023 8:47 AM REASON FOR EXAM: EPIGASTRIC PAIN COMPARISON: None. TECHNIQUE: Complete abdominal sonogram. B-mode grayscale, color Doppler, and spectral Doppler images are obtained. FINDINGS: The liver is normal in size, shape and echotexture. There are no focal lesions. No intra or extrahepatic biliary dilatation is present. The common bile ductis not dilated and measures 2 mm.] Portal [...] enlarged. It measures 8.4 cm in length. Thevisualized upper aorta and IVC are normal in course and caliber. There is no ascites in the upper abdomen. IMPRESSION: 1. Nonobstructive right nephrolithiasis, otherwise unremarkable abdominal sonogram. at 1100 Reported and signed by: Shaun Montes M.D. CC: Enrrique Alvarado MD Technologist: Maia Horvath Trnkyb Date/Time: 01/31/2023 (1100) [email or web address] PAGE 1 Signed Report Name: JUNE GALLARDO : 1990 Age/S: 32 / [id number] [facility] [facility] Unit #: [id number] Loc: [place] [address] Phys: Enrrique Alvarado MD Acct: [id number] Dis Date: Status: REG CLI PHONE #: [phone] Exam Date: 01/31/2023 0943 FAX #: Reason: EPIGASTRIC PAIN EXAMS: CPT: [id number] US ABDOMEN COMPLETE 10104 (Continued) Orig Print D/T: S: 02/01/20 23 (6859) Probe: PAGE 2 Signed [id number] 14:50:00* Test Item Value Reference Range Interpretation Comme nts SURGICAL (test code = SR) R UN DATE: 05/01/22 [facility] PAGE 1 RUN TIME: 1451 Specimen Inquiry RUN USER: INTERFACE P ATIENT: JUNE GALLARDO [facility] #: [id number] [facility]: [id number] AGE/SX: ROOM: [facility] RE04/29/22REG DR: Kiersten Damon MD : [birth year] BED: A DIS: 04/30/22 STATUS: DIS Cm TLOC: SPEC #: [id number] RECD: 04/29/22 STATUS: [facility] #: [id number] DONNA: 04/29/22-[address]: Kiersten Damon MD ENTERED: 04/29/22 SP TYPE: SURGICAL OT DR: ORDERED: ANATOMIC SPEC, SPEC TRACK, [id number] PROCEDURES: [id number] (04/29/22) TISSUES: A. UTERUS W/WO TUBES OVARIES NON NEOPLASTIC/PROLAPSE - UTERUS, CERVIX, BILATERAL TUBES FINAL DIAGNOSIS UTERUS, HYSTERECTOMY: [...] FALLOPIAN TUBES, BILATERAL - No significant pathologic alterations. GROSS DESCRIPTION Specimen received in formalin, labeled with patient's name, MRN, date of and uterus,cervix, bilateral tubes. It consists of a hysterectomy specimen with 2 separate fallopiantube segments weighing in aggregate 99 g. Uterus measures 8.7 cm in length from fundus todistal most portion of exocervix, 4.9 cm in maximum cornu to cornu with and 3.7 cmanteroposteriorly. Serosa is watters-brown smooth. Cervix is 3.1 cm in length and 3.3 cm ingreatest diameter. Os is slit-like and 1.2 cm across. Cervical canal has watters rugatedappearance. Endometrial cavity is 4.5 cm in length and 1.9 cm in maximum width. Endometrium is watters-pink focally polypoid appearing near the fundus and measures 0.1- 0.2 cmin thickness.Myometrium is watters-pink and up to 1.9 cm in thickness. Fallopian tube segmentseach with fimbria 1.6 cm and 2.5 cm in length and up to 0.4 cm in diameter. Serosa istan-brown smooth. Sectioning of both reveals partially patent lumen. anterior cervix isinked green, posterior cervix is inked black and endocervical /lower uterine segmentresection margin inked orange. Librarian Assistant sections with entire cervixare submitted as follows: A 1-A2, A3-A4 12:00 to 3:00 cervix A 5-A 6, A 7-A8 3:00 to 6:00 cervix CONTINUED ON NEXT PAGE R UN DATE: 05/01/22 [facility] PAGE 2 RUN TIME: 1451 Specimen Inquiry RUN USER: INTERFACE S PEC #: [id number] PATIENT: JUNE GALLARDO #[id number] (Continued) GROSS DESCRIPTION (Continued) A9-A10 6:00 to 9:00 cervix A11-A 12, A13 -A14 9:00 to 12:00 cervix A15 anterior lower uterine segment longitudinal section A16 posterior lower uterine segment longitudinal section A17-A18 anterior endomyometrium, 1 full-thickness section each A19 -A20 posterior endomyometrium, 1 full-thickness section each A21-A22 entire larger fallopian tube segment A23-A24 entire smaller fallopian tube [id number] Technical component performed at [facility] [address] [address] Immunohistochemical stains and Special Stains are performed at [address], [address], [place] [address] Unless gross only, the diagnosis is based upon microscopic examination. Immunohistochemistry: This test was developed and its performance characteristicsdetermined by this laboratory. It has not been approved nor does it need approval by [place] FDA. Appropriate positive and negative controls are reviewed and judged to beacceptable. This laboratory is certified under the Clinical Laboratory ImprovementAmendments (CLIA-88) as qualified to perform high complexity clinical laboratory testing. MICROSCOPIC DESCRIPTION Microscopic examination is performed and the findings are incorporated in the diagnosis. CLINICAL INFORMATION 04/29/22, OUT OF BODY 1400P, IN FORMALIN 1454P, DYSPLASIA OF CERVIX, STAGE 3. - Signed _ Erickson Hernandez 05/01/22 1450 END OF REPORT CBC W/AUTO [id number] 04:44:00* Test Item Value Reference Range Interpretation [...] code = PLTMR) NORMAL NORMAL UR HCG [id number] 11:10:00* Test Item Value Reference Range Interpretation Comme nts UR HCG QUAL (test code = HCGQLU) NEGATIVE 1. Very dilute u rine specimens, as indicated by a lowspecific gravity, may not contain consumer sales representative levels ofhCG. 2. False negative results may occur when the levels of hCGare below the sensitivity level of the test. If is still suspected, a first morningurine specimen should be collected 48 hours later andtested. HGB [id number] 14:15:00* Test Item Value Reference Range Interpretation Comme nts HEMOGLOBIN (test code = HGB) 11.5 g/dL 10.1-13.8 N HEMATOCRIT (test code = HCT) 35.3 % 32.5-41.8 N UR HCG [id number] 14:05:00* Test Item Value Reference Range Interpretation Comme nts UR HCG QUAL (test code = HCGQLU) NEGATIVE 1. Very dilute u rine specimens, as indicated by a lowspecific gravity, may not contain consumer sales representative levels ofhCG. 2. False negative results may occur when the levels of hCGare below the sensitivity level of the test. If is still suspected, a first morningurine specimen should be collected 48 hours later andtested.
[2024-04-04] MEDS ORDERED: NA CHLORIDE 0.9% 1,000 ML ONE (18:08)
[2024-04-04] MEDS ORDERED: ONDANSETRON 4 MG/2 ML VIAL ONE (18:08)
[2024-04-04] MEDS ORDERED: KETOROLAC 30 MG/ML INJ ONE (18:08)
[2024-04-04 18:16] LABS: Absolute Lymphocytes (CBC) 1.3 K/uL (0.7-4.9); Absolute Monocytes 0.4 K/uL (0.1-1.3); Absolute Neutrophil 4.8 K/uL (1.8-8.0); Basophils % 0.4 % (0-1.3); Eosinophils % 0.1 % (0-4.4); Hematocrit 40.1 % (36.0-45.0); Hemoglobin 13.2 g/dL (12.0-15.0); Lymphocytes % 20.1 % (15.3-44.8); MCHC 32.8 g/dL (32.0-36.0); MCV 91.5 fL (80-100); MPV 8.9 fL (7.6-11.3); Monocytes % 5.9 % (3.3-12.3); Neutrophils % 73.5 % (41.7-73.7); Platelets 264 thou/uL (152-406); RBC Red Blood Cell Count 4.38 M/uL (3.86-4.86); Red Cell Distribution Width 12.4 % (12.1-15.2)
[2024-04-04 18:35] LABS: ALT/SGPT 17 U/L (13-56); AST/SGOT 14 U/L (15-37); Albumin/Globulin Ratio 1.1 (1.1-1.8); Alkaline Phosphatase 63 U/L (45-117); Anion Gap 8.6 mEq/L (5.0-15.0); BUN Blood Urea Nitrogen 11 mg/dL (7-18); Bicarbonate 25 mEq/L (21-32); Bilirubin Total 0.3 mg/dL (0.2-1.0); Globulin 3.7 g/dL (2.3-3.5); Glomerular Filtration Rate 99 ml/min (=/>90); Glucose Level 97 mg/dL (74-106); Lipase 39 U/L (13-75); Potassium 3.6 mEq/L (3.5-5.1); Protein, Total 7.7 g/dL (6.4-8.2); Sodium Level 138 mEq/L (136-145)
[2024-04-04 18:39] LABS: Specific Gravity 1.022 (1.005-1.030); Sqamous Epithelial <5 /HPF (None Seen); Urine Bacteria None Seen /HPF (<20); Urine Bilirubin NEGATIVE (Negative); Urine Blood Negative (Negative); Urine Clarity Turbid (Clear); Urine Color Yellow (Yellow); Urine Culture Reflex Order NOT NEEDED; Urine Glucose NEGATIVE (Negative); Urine Ketones TRACE (Negative); Urine Microscopic Reflex YN ORDER UMIC; Urine Mucus Slight /HPF (None Seen); Urine Nitrite NEGATIVE (Negative); Urine Protein NEGATIVE (Negative); Urine RBC <5 /HPF (None Seen); Urine Urobilinogen Normal (Normal); Urine WBC <5 /HPF (<5)
[2024-04-04 18:46] LABS: Troponin High Sensitivity < 3.0 pg/mL (<58.9)
[2024-04-04] MEDS ORDERED: MORPHINE 4 MG/ML SYR ONE (19:46)
--- NOTE | 2024-04-04 20:18 | RAD REPORT ---
EXAMINATION: ONE VIEW CHEST XR CLINICAL INDICATION: Female, 33 years old.,PALPITATIONS TECHNIQUE: Frontal chest projection is submitted. Examination is limited by patient positioning and t echnique. COMPARISON: 05/09/2023 FINDINGS: The lungs are well inflated and clear. No pneumothorax or sizable effusion. The heart is normal in s ize. Mediastinal contours are unremarkable. IMPRESSION: No acute intrathoracic abnormalities.
--- NOTE | 2024-04-04 20:25 | RAD REPORT ---
EXAMINATION: CT Stone Protocol CLINICAL INDICATION: Female, 33 years old. FLANK PAIN TECHNIQUE: CT abdomen and pelvis was performed, without IV contrast, as per department protocol. Axia l, sagittal and coronal reconstructions were obtained. One or more of the following dose reduction techniques were used: Automated exposure control, adjustment of the mA and kV according to the patien t size, and iterative reconstruction. Unless otherwise specified, incidental findings do not require dedicated imaging follow-up. COMPARISON: 05/09/2023 FINDINGS: The lack of intravenous contrast limits the sensitivity of this exam for evaluation of solid visceral organs, vascular structures, and retroperitoneum. LOWER CHEST: The visualized lung bases are clear. LIVER: Normal in size and contour. No focal lesion. BILIARY SYSTEM: Status post cholecystectomy. SPLEEN: Normal size. No focal lesion. PANCREAS: No mass, ductal dilation, or sam-pancreatic fluid. ADRENALS: Normal; no mass. KIDNEYS AND URETERS: Normal size and contour. No hydronephrosis. URINARY BLADDER: Suboptimally distended limiting evaluation. 6 mm calcific focus at the lower left ma rgin of the bladder inferiorly, uncertain if within the bladder lumen. GASTROINTESTINAL TRACT: No evidence of bowel obstruction, significant free fluid, free air or abscess . APPENDIX: Normal appendix. LYMPH NODES: No lymphadenopathy. MUSCULOSKELETAL: No acute or suspicious osseous abnormality. Superior endplate compression and remode ling at the L4, stable. ADDITIONAL FINDINGS: None. IMPRESSION: 6 mm calcific focus at the lower left margin of the bladder inferiorly, uncertain if within the bladd er lumen could represent a small calculus versus venous phlebolith. No other acute or concerning abnormalities in the abdomen or pelvis, with evaluation limited by lack of IV contrast. No evidence of hydronephrosis or urinary tract calculi.
[2024-04-04] MEDS ORDERED: HYDROCODONE/APAP 5/325 MG TAB ONE (20:38)
[2024-04-04] MEDS ORDERED: DIAZEPAM 2 MG TABLET ONE (20:39)
--- NOTE | 2024-04-04 20:50 | ER ---
Nurse's Notes [facility] Name: Shital Ramirez Age: 33 yrs Sex: Female : 1990 Arrival Date: 04/04/2024 Time: 17:35 Bed 8 Private MD: Diagnosis: Left flank pain Presentation: 04/04 17:44 Chief complaint: Patient states: COMPLAINS OF LEFT FLANK PAIN GOT WORSE 2 HOURS AGO AND db TOOK ZOFRAN FOR NAUSEA. DENIES URINARY SYMPTOMS. STATES HAS PALPITATIONS THAT COME AND GO "LIKE A PANIC ATTACK". Coronavirus screen: Client denies travel out of the [place] in the last 14 days. At this time, the client does not indicate any symptoms associated with coronavirus-19. Ebola Screen: Patient negative for fever greater than or equal to 101.5 degrees Fahrenheit, and additional compatible Ebola Virus Disease symptoms Patient denies exposure to infectious person. Patient denies travel to an Ebola-affected area in the 21 days before illness onset. No symptoms or risks identified at this time. Initial Sepsis Screen: Does the patient meet any 2 criteria? No. Patient's initial sepsis screen is negative. Does the patient have a suspected source of infection? No. Patient's initial sepsis screen is negative. Risk Assessment: Do you want to hurt yourself or someone else? Patient reports no desire to harm self or others. Onset of symptoms was April 04, 2024. 17:44 Method Of Arrival: Ambulatory db 17:44 Acuity: AYE 3 db Triage Assessment: 17:45 General: Appears in no apparent distress. uncomfortable, Behavior is cooperative. Pain: db Complains of pain in left low back and right low back. Neuro: Level of Consciousness is awake, alert, obeys commands, Oriented to person, place, time, situation. Cardiovascular: Reports palpitations. Respiratory: Airway is patent Respiratory effort is even, unlabored, Respiratory pattern is regular, symmetrical. :. 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 - Infectious Disease History:: Denies. - Social history:: Smoking status: . Screenin:41 [facility] ED Fall Risk Assessment (Adult) History of falling in the last 3 months, al5 including since admission No falls in past 3 months (0 pts) Confusion or Disorientation No (0 pts) Intoxicated or Sedated No (0 pts) Impaired Gait No (0 pts) Mobility Assist Device Used No (0 pt) Altered Elimination No (0 pt) Score/Fall Risk Level 0 - 2 = Low Risk Oriented to surroundings, Maintained a safe environment, Hourly rounding (assess needs \\T\\ fall precautionary measures) done. Abuse screen: Denies threats or abuse. Denies injuries from another. Nutritional screening: No deficits noted. Tuberculosis screening: No symptoms or risk factors identified. Assessment: 19:39 General: Appears in no apparent distress. uncomfortable, Behavior is calm, cooperative. al5 Pain: Complains of pain in back and left low back Pain radiates to left lower quadrant Pain currently is 7 out of 10 on a pain scale. Pain began 4 hours ago. Neuro: Level of Consciousness is awake, alert, obeys commands, Oriented to person, place, time, situation. Cardiovascular: Capillary refill < 3 seconds Patient's skin is warm and dry. Respiratory: Airway is patent Respiratory effort is even, unlabored, Respiratory pattern is regular, symmetrical. GI: Abdomen is flat, non-distended, Reports lower abdominal pain, nausea, decreased appetite due to nausea. : No signs and/or symptoms were reported regarding the genitourinary system. EENT: No signs and/or symptoms were reported regarding the EENT system. Derm: Skin is intact, is healthy with good turgor, Skin is pink, warm \\T\\ dry. normal. Musculoskeletal: No signs and/or symptoms reported regarding the musculoskeletal system. 20:11 Reassessment: Patient appears in no apparent distress at this time. Patient and/or bm8 family updated on plan of care and expected duration. Pain level reassessed. Patient is alert, oriented x 3, equal unlabored respirations, skin warm/dry/pink. General: Appears in no apparent distress. comfortable, Behavior is calm, cooperative, appropriate for age. Pain: Complains of pain in left lower quadrant and back and right low back and left low back Pain currently is 8 out of 10 on a pain scale. Pain began 7 hours now. Neuro: Level of Consciousness is awake, alert, obeys commands, Oriented to person, place, time, situation, Appropriate for age. Cardiovascular: Denies chest pain, Capillary refill < 3 seconds in bilateral fingers Patient's skin is warm and dry. Respiratory: Airway is patent Respiratory effort is even, unlabored, Respiratory pattern is regular, symmetrical. GI: Reports lower abdominal pain. : Reports pain in left in suprapubic area flank(s), lower quadrant(s) in lower back. EENT: No signs and/or symptoms were reported regarding the EENT system. Derm: No signs and/or symptoms reported regarding the dermatologic system. Musculoskeletal: No signs and/or symptoms reported regarding the musculoskeletal system. Vital Signs: 17:44 Pulse 67; Resp 16; Temp 98; Pulse Ox 100% ; db 19:22 BP 126 / 82; Pulse 60; Resp 16; Pulse Ox 100% on R/A; al5 19:30 BP 114 / 90; Pulse 62; Resp 17; Pulse Ox 100% on R/A; al5 20:11 BP 115 / 90; Pulse 73; Resp 18; Temp 98; Pulse Ox 100% ; Pain 8/10; bm8 21:02 BP 118 / 71; Pulse 68; Resp 16; Pulse Ox 100% on R/A; al5 20:11 Pain Scale: Adult bm8 Melina Coma Score: 20:11 Eye Response: spontaneous(4). Motor Response: obeys commands(6). Verbal Response: bm8 oriented(5). Total: 15. ED Course: 17:38 Patient arrived in ED. al6 17:39 [facility] kb 17:39 Cecilio Browne MD is Attending Physician. kb 17:45 Triage completed. db 17:45 Arm band placed on right wrist. db 18:14 Initial lab(s) drawn, by me, sent to lab. EKG done. Inserted saline lock: 20 gauge in db right antecubital area, using aseptic technique. Blood collected. Flushed with 10 mL NS. 19:25 XRAY Chest (1 view) In Process Unspecified. EDMS 19:35 Shital Weldon, YONG is Primary Nurse. al5 19:41 Patient has correct armband on for positive identification. Bed in low position. Call al5 light in reach. Side rails up X 1. Provided Education on: plan of care, awaiting results. Client placed on continuous cardiac and pulse oximetry monitoring. NIBP monitoring applied. 19:55 CT Stone Protocol In Process Unspecified. EDMS 20:04 No provider procedures requiring assistance completed. Patient maintains SpO2 al5 saturation greater than 95% on room air. 21:02 IV discontinued, intact, bleeding controlled, No redness/swelling at site. Pressure al5 dressing applied. Administered Medications: 18:14 Drug: TORadol - Ketorolac IVP 15 mg IVP once Route: IVP; Site: right antecubital; db 19:48 Follow up: Response: No adverse reaction bm8 18:14 Drug: Ondansetron IVP 4 mg IVP once; over 2 minutes Route: IVP; Site: right antecubital;db 19:48 Follow up: Response: No adverse reaction bm8 18:14 Drug: NS 0.9% IV 1000 ml IV at 1 bolus Per protocol; to be given as a bolus over 60 db minutes Route: IV; Rate: 1 bolus; Site: right antecubital; 19:48 Follow up: Response: No adverse reaction; IV Status: Completed infusion; IV Intake: bm8 1000ml 20:11 Drug: morphine IVP or IV 2 mg IVP once over 4 mins Route: IVP; Infused Over: 4 mins; bm8 Site: right antecubital; 20:42 Follow up: Response: No adverse reaction bm8 20:41 Drug: HYDROcodone-acetaminophen PO 5 mg-325 mg 1 tabs PO once Route: PO; bm8 21:02 Follow up: Response: No adverse reaction; Medication administered at discharge. al5 20:41 Drug: Diazepam PO 2 mg PO once Route: PO; bm8 21:02 Follow up: Response: No adverse reaction; Medication administered at discharge. al5 Medication: 20:04 VIS not applicable for this client. al5 Intake: 19:48 IV: 1000ml; Total: 1000ml. bm8 Outcome: 20:49 Discharge ordered by . mehdi 21:03 Discharged to home ambulatory, with friend, al5 21:03 Condition: good 21:03 Discharge instructions given to patient, friend, Instructed on discharge instructions, follow up and referral plans. medication usage, Demonstrated understanding of instructions, follow-up care, medications, Prescriptions given X 3, 21:03 Patient left the ED. al5 Signatures: Dispatcher [employer] EDMS Ldiia Gomez, CHARLIE-C TRIMMER TAILER-CkGardenia South RN RN db Twin García RN RN bm8 Shital Weldon RN RN al5 Lesia Adamson al6 Corrections: (The following items were deleted from the chart) 17:46 17:44 Chief complaint: Patient states: COMPLAINS OF LEFT FLANK PAIN GOT WORSE 2 HOURS db AGO AND TOOK ZOFRAN FOR NAUSEA. db 20:02 19:39 BP 126 / 82; Pulse 60bpm; Resp 16bpm; Pulse Ox 100% RA; al5 al5
--- NOTE | 2024-04-04 20:50 | EDPHYS ---
Physician Documentation [facility] Name: Shital Ramirez Age: 33 yrs Sex: Female : 1990 Arrival Date: 04/04/2024 Time: 17:35 Bed 8 Private MD: ED Physician Cecilio Browne HPI: 04/04 17:48 This 33 yrs old Female presents to ER via Ambulatory with complaints of Low Back Pain, kb Chest Pain, Nausea. 17:48 Pt is a 33 year old female who presents for left flank pain that started 4 hours ago. kb States since then she has developed nausea due to pain and "panic attack palpitations." Denies urinary symptoms, fever. 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 - Infectious Disease History:: Denies. - Social history:: Smoking status: . ROS: 17:49 Constitutional: As per HPI kb Exam: 17:49 Constitutional: This is a well developed, well nourished patient who is awake, alert, kb and in no acute distress. Head/Face: Normocephalic, atraumatic. ENT: Moist Mucous membranes Cardiovascular: Regular rate Respiratory: Respirations even and unlabored. No increased work of breathing. Talking in full sentences Skin: Warm, dry with normal turgor. Normal color. MS/ Extremity: Pulses equal, no cyanosis. Neurovascular intact. Full, normal range of motion. Neuro: Awake and alert, GCS 15, oriented to person, place, time, and situation. 17:49 Abdomen/GI: Inspection: abdomen appears normal, Bowel sounds: normal, Palpation: soft, in all quadrants, mild abdominal tenderness, in the left lower quadrant, 17:49 Back: CVA tenderness, that is moderate, is noted on the left, 17:59 ECG was reviewed by the Attending Physician. kb Vital Signs: 17:44 Pulse 67; Resp 16; Temp 98; Pulse Ox 100% ; db 19:22 BP 126 / 82; Pulse 60; Resp 16; Pulse Ox 100% on R/A; al5 19:30 BP 114 / 90; Pulse 62; Resp 17; Pulse Ox 100% on R/A; al5 20:11 BP 115 / 90; Pulse 73; Resp 18; Temp 98; Pulse Ox 100% ; Pain 8/10; bm8 21:02 BP 118 / 71; Pulse 68; Resp 16; Pulse Ox 100% on R/A; al5 20:11 Pain Scale: Adult bm8 Melina Coma Score: 20:11 Eye Response: spontaneous(4). Motor Response: obeys commands(6). Verbal Response: bm8 oriented(5). Total: 15. MDM: 17:39 Medical Screening Exam initiated kb 20:48 Data reviewed: vital signs, nurses notes. kb 20:49 Differential diagnosis: nephrolithiasis, pyelonephritis, UTI. Counseling: I had a kb detailed discussion with the patient and/or guardian regarding the historical points, exam findings, and any diagnostic results supporting the discharge/admit diagnosis, lab results, radiology results, the need for outpatient follow up, a family practitioner, to return to the emergency department if symptoms worsen or persist or if there are any questions or concerns that arise at home. 04/04 17:49 Order name: CBC with Diff; Complete Time: 18:19 kb 04/04 17:49 Order name: CMP; Complete Time: 18:47 kb 04/04 17:49 Order name: Lipase; Complete Time: 18:47 kb 04/04 17:49 Order name: Test, Urine; Complete Time: 18:40 kb 04/04 17:49 Order name: Urinalysis w/ reflexes; Complete Time: 18:42 kb 04/04 17:49 Order name: Troponin HS; Complete Time: 18:47 kb 04/04 17:49 Order name: XRAY Chest (1 view); Complete Time: 20:24 kb 04/04 17:49 Order name: CT Stone Protocol; Complete Time: 20:26 kb 04/04 17:49 Order name: EKG; Complete Time: 17:50 kb 04/04 17:49 Order name: IV Saline Lock; Complete Time: 18:13 kb 04/04 17:49 Order name: Labs collected and sent; Complete Time: 18:13 kb 04/04 17:49 Order name: EKG - Nurse/Tech; Complete Time: 17:58 kb EC:59 Rate is 69 beats/min. Rhythm is regular. QRS [place] is Normal. NM interval is normal at kb 138 msec. QRS interval is normal at 76 msec. QT interval is normal at 387 msec. Administered Medications: 18:14 Drug: TORadol - Ketorolac IVP 15 mg IVP once Route: IVP; Site: right antecubital; db 19:48 Follow up: Response: No adverse reaction bm8 18:14 Drug: Ondansetron IVP 4 mg IVP once; over 2 minutes Route: IVP; Site: right antecubital;db 19:48 Follow up: Response: No adverse reaction bm8 18:14 Drug: NS 0.9% IV 1000 ml IV at 1 bolus Per protocol; to be given as a bolus over 60 db minutes Route: IV; Rate: 1 bolus; Site: right antecubital; 19:48 Follow up: Response: No adverse reaction; IV Status: Completed infusion; IV Intake: bm8 1000ml 20:11 Drug: morphine IVP or IV 2 mg IVP once over 4 mins Route: IVP; Infused Over: 4 mins; bm8 Site: right antecubital; 20:42 Follow up: Response: No adverse reaction bm8 20:41 Drug: HYDROcodone-acetaminophen PO 5 mg-325 mg 1 tabs PO once Route: PO; bm8 21:02 Follow up: Response: No adverse reaction; Medication administered at discharge. al5 20:41 Drug: Diazepam PO 2 mg PO once Route: PO; bm8 21:02 Follow up: Response: No adverse reaction; Medication administered at discharge. al5 Disposition: 04/05 09:10 Co-signature as Attending Physician, Cecilio Browne MD I reviewed the patient's care rn provided by the Advanced Practice Provider and agree with the diagnosis and treatment plan. Disposition Summary: 04/04/24 20:49 Discharge Ordered Notes: Location: Home kb Condition: Stable kb Diagnosis - Left flank pain kb Followup: kb - With: Emergency Department - When: As needed - Reason: Worsening of condition Followup: kb - With: Private Physician - When: 2 - 3 days - Reason: Recheck today's complaints, Continuance of care, Re-evaluation by your physician Discharge Instructions: - Discharge Summary Sheet kb - Kidney Stones, [id number] kb - Flank Pain, Adult, [id number] kb Forms: - Medication Reconciliation Form kb - Antibiotic Education kb - Prescription Opioid Use kb - Patient Portal Instructions kb - Leadership Thank You Letter kb - Work release form bd Prescriptions: - Zofran 4 mg Oral tablet - take 1 tablet ORAL route every 6 hours As needed; 12 tablet; Refills: 0, kb Product Selection Permitted - Diclofenac Sodium 75 mg Oral tablet, delayed release (enteric coated) - take 1 tablet ORAL route 2 times per day As needed; 30 tablet; Refills: 0, kb Product Selection Permitted - orphenadrine citrate 100 mg Oral Tablet Sustained Release - take 1 tablet ORAL route 2 times per day As needed; 20 tablet; Refills: 0, kb Product Selection Permitted Signatures: Dispatcher [employer] EDMS Lidia Gomez, DRAFT ROLLER PICKER-C DRAFT ROLLER PICKER-Ckb Cecilio Browne MD MD rn Benton, Danielle RN RN Twin [place] RN RN bm8 Shital Weldon RN RN al5 Corrections: (The following items were deleted from the chart) 04/04 17:50 17:50 CBC+H.LAB.BRZ ordered. EDMS EDMS 17:50 17:50 COMPREHENSIVE METABOLIC PANEL+C.LAB.BRZ ordered. EDMS EDMS 17:50 17:50 LIPASE+C.LAB.BRZ ordered. EDMS EDMS 17:50 17:50 Test, Urine+UC.LAB.BRZ ordered. EDMS EDMS 17:50 17:50 Urinalysis+U.LAB.BRZ ordered. EDMS EDMS 17:50 17:50 Troponin High Sensitivity+C.LAB.BRZ ordered. EDMS EDMS
[2024-04-06 16:16] VITALS: BP 118/71; TEMP 98; O2SAT 100
--- NOTE | 2024-04-08 12:09 | EKG ---
Test Date: 2024-04-04 Test Time: 17:57:19 [employer] Attendant: ARIK MEASUREMENT RESULTS: Intervals: Rate: 69 DE: 138 QRSD: 76 QT: 362 QTc: 387 [place]: P: 54 DE: 138 QRS: 82 T: 67 INTERPRETIVE STATEMENTS: Normal sinus rhythm with sinus arrhythmia Normal ECG Compared to ECG 05/09/2023 10:23:49 Left posterior fascicular block no longer present Electronically Signed On 04-08-24 12:07:39 CARPET RENOVATOR by Honorio Terrazas
== END 2024-04-04 21:03 | disposition home or self-care (01) ==
LOC: ER 17:35
DX: R10.9 Unspecified abdominal pain (principal)
CPT/HCPCS: 96361; 93005; 85025; 81001; 36415; 81025; 84484; 83690; 80053; 76377; 74176; 71045; 96375; 96374; 99285; J2405; J7030

== ENCOUNTER 2024-11-16 19:29 | Emergency (ER) | payer OTHER ==
--- OUTSIDE RECORDS SUMMARY | 2024-11-16 19:32 | XMS REPORT | Continuity of Care Document ---
Author Name Unknown Address [address] [place] [address] [facility] Address [address] [place] [address] Care Team Providers Care Stoker Mechanic Name Role Phone JACI MELVIN Primary Care Physician Conchita vailable RADIOLOGY Attending Clinician Unavailable 0 Attending Clinician Unavailable Leeann Mercado Attending Clinician Unava ilable DAYANNA GARAY Attending Clinician Unavailable Susy Villa Attending Clinician UnavailALAN Damon Attending Clinician Unava ilable BONITA MOTLEY Attending Clinician Unavailable BONITA MOTLEY Attending Clinician Unavailable Arminda Alvarado Attending Clinician UnavailKiersten Hill Attending Clinician UnavailJACI Croft Attending Clinician STEFANIE Wilson Attending Clinician AMILCAR Cosme Attending Clinician Conchita vailable Arminda Alvarado Admitting Clinician UnavailKiersten Hill Admitting Clinician AMILCAR Mooney Admitting Clinician Conchita vailable Payers Payer Name Policy Type Policy Number Effective Date Expirati on Date Source [facility] [id number] 2024 00:00:00 2309 OTHER [id number] 2024 00:00:[id number] [facility] [id number] 2020 00:00:00 Problems Condition Name Condition Details Condition Category Status Onset Date Resolution Date Last Treatment Date Treating Clinician Comments Source Tinea versicolor Tinea versicolor Disease Active 2015-03 00:00: 00 [facility] Anxiety Anxiety Disease Active 2014-03 00:00: 00 [facility] Allergies, Adverse Reactions, Alerts Allergy Name Allergy Type Status Severity Reaction(s) Onset Date Inactive Date Treating Clinician Comments Source No Known Allergie s DA Active U 11-11 00:00: 00 [facility] No Known Allergie s DA Active U 04-18 00:00: 00 [facility] [place] No Known Allergie s DA Active U 04-13 00:00: 00 [facility] NO KNOWN ALLERGIE S Drug Class Active [facility] Social History Social Habit Start Date Stop Date Quantity Comments Source History of tobacco use Cigarette Smoker [facility] intake 2021-10-02 00:00:00 2021-10-02 00:00:00 .14 /d [facility] History of Social function 2020-08-15 00:00:00 2020-08-15 00:00:00 [facility] Tobacco use and exposure 2016-01-02 00:00:00 2016-01-02 00:00:00 Smokeless tobacco non-user [facility] Sex Assigned At 1990 00:00:00 1990 00:00:00 [facility] Smoking Status Start Date Stop Date Source Ex-smoker 2016-01-02 00:00:00 2016-01-02 00:00:00 [facility] Medications Ordered Medication Name Filled Medication Name Start Date Stop Date Current Medication? Ordering Clinician Indication Dosage Frequency Signature (SIG) Comments Components Source escitalopra m oxalate 10 mg tablet 11-02 00:00: 00 Yes [id number] 15mg Take 1.5 tablets by mouth daily. [facility] TRAZODONE 50 mg tablet 10-26 00:00: 00 Yes [id number] TAKE ONE TABLET BY MOUTH AT BEDTIME [facility] ketoconazol e 200 mg tablet 04-20 00:00: 00 Yes [id number] Take a dose now and repeat in one week [facility] Encounters Start Date/Time End Date/Time Encounter Type Admission Type Attending [facility] Care Facility Care Department Encounter ID Source 2024-11-04 09:16:16 2024-11-04 09:16:16 Outpatient 0 EYETX EYETX [id number] [facility] [place] 2024-11-04 08:45:00 2024-11-04 08:45:00 Outpatient 0 EYETX EYETX [id number] [facility] [place] 2024-10-29 09:16:41 2024-10-29 09:16:41 Outpatient 0 EYETX EYETX [id number] [facility] [place] 2024-10-27 13:30:00 2024-10-27 13:30:00 Outpatient 0 EYETX EYETX [id number] [facility] [place] 2024-10-27 10:42:48 2024-10-27 10:42:48 Outpatient 0 EYETX EYETX [id number] [facility] [place] 2024-10-26 17:11:11 2024-10-26 17:11:11 Outpatient 0 EYETX EYETX [id number] [facility] 2023-11-26 09:43:00 2023-11-26 09:43:00 Outpatient Leeann Hemphill [facility] DAYS [id number] [facility] 2023-11-17 16:43:00 2023-11-17 20:43:00 Emergency E DAYANNA GARAY [facility] [id number] [facility] 2023-11-12 17:52:00 2023-11-12 22:05:00 Emergency EM Susy Villa [facility] [id number] [facility] 2023-10-24 11:30:00 2023-10-24 15:35:00 Emergency E ALAN BEAR [facility] [id number] [facility] 2023-03-01 22:06:00 2023-03-01 22:25:00 Emergency X BONITA MOTLEY [facility] ERT [id number] [facility] 2023-03-01 22:06:00 2023-03-01 22:25:00 Emergency X BONITA MOTLEY WAKILI [facility] ERT [id number] [facility] 2023-01-31 08:43:00 2023-01-31 08:43:00 Outpatient EL Alvarado, [facility] [id number] [facility] [place] 2023-01-31 08:43:00 2023-01-31 08:43:00 Outpatient EL Alvarado, Arminda [facility] RADI [id number] [facility] [place] 2023-01-27 18:14:00 2023-01-27 18:14:00 Outpatient Alvarado, Arminda [facility] [id number] [facility] [place] 2022-04-29 09:52:00 2022-04-30 14:13:00 Inpatient JIMBO Colin Damonsa [facility]01 [id number] [facility] 2020-08-15 13:30:00 2020-08-15 13:30:00 Outpatient JACI GARCIA [facility] [id number] [facility] 2020-04-20 11:15:00 2020-04-20 11:15:00 Outpatient JACI GARCIA [facility] [id number] [facility] 2020-04-01 16:40:00 2020-04-01 16:40:00 Outpatient Chant[place] STEFANIE ARRIAGA [facility] [id number] [facility] 2019-12-11 18:20:00 2019-12-12 13:30:00 Inpatient AMILCAR TOMAS [facility] [id number] [facility] 2019-10-26 13:45:00 2019-10-26 13:45:00 Outpatient [place] JACI MELVIN [facility] [id number] [facility] Results Test Description Test Time Test Comments Results Result Co mments Source PROTHROMBIN [id number] 15:18:00* Test Item Value Reference Range Interpretation Comme [facility] PROTHROMBIN TIME PATIENT (te st code = PTP) 11.6 secs 9.8-13.3 N THROMBOPLASTIN TIME [id number] 15:18:00* Test Item Value Reference Range Interpretation Comme [facility] THROMBOPLASTIN TIME PARTIAL (test code = PTT) 32 secs 26.2-37.2 N HCG SERUM [id number] 15:16:00* Test Item Value Reference Range Interpretation Comme [facility] HCG SERUM QUAL (test code = HCGQL) NEGATIVE CBC W/AUTO [id number] 14:59:00* Test Item Value Reference Range Interpretation [...] 0.0 K/mm3 UA RFLX MICR CULT IF [id number] 19:34:00* Test Item Value Reference Range Interpretation [...] RiskForSepsis-no oth srcSpecimen Description: RANDOM COMPREHENSIVE METABOLIC [id number] 19:27:00* Test Item Value Reference Range Interpretation [...] thepatient's age is <18 years. HCG SERUM [id number] 19:27:00* Test Item Value Reference Range Interpretation Comme nts HCG SERUM QUAL (test code = HCGQL) NEGATIVE CBC W/AUTO [id number] 19:01:00* Test Item Value Reference Range Interpretation [...] (test code = BA#) 0.0 K/mm3 - US ABDOMEN [id number] 11:00:00 [facility] 1990 Sex: F Name: JUNE GALLARDO [facility] : 1990 Age/S: 32 / F [id number] Unit #: [id number] Loc: [place] [address] Phys: Arminda Alvarado MD Acct: [id number] Dis Date: Status: DEP CLI PHONE #: [phone] Exam Date: 01/31/2023 0943 FAX #: Reason: EPIGASTRIC PAIN EXAMS: CPT: [id number] US ABDOMEN COMPLETE 15627 S 17 TIME OF STUDY: 01/31/2023 8:47 [...] not well visualized due to overlying bowel gas.Both kidneys are normal in size and echogenicity. The cortical thickness and the cortical medullarydifferentiation is well maintained. The right kidney measures [...] sonogram. at 1100 Reported and signed by: Francisco Javier Harrington CC: Arminda Alvarado MD Technologist: Maia Horvath [facility] Date/Time: 01/31/2023 (1100)UriahSI1 PAGE 1 Signed Report Name: JUNE GALLARDO [facility] : 1990 Age/S: [place] Unit #: [id number] Loc: [place] [address] Phys: Arminda Alvarado MD Acct: [id number] Dis Date: Status: DEP I PHONE #: [phone] Exam Date: 01/31/2023 0943 FAX #: Reason: EPIGASTRIC PAIN EXAMS: CPT: [id number] US ABDOMEN COMPLETE 69547 (Continued) Orig Print D/T: S: 01/31/2023 (1104) Probe: PAGE 2 Signed Report- US ABDOMEN [id number] 11:00:00[facility] 1990 Sex: F Name: JUNE GALLARDO [facility] : 1990 Age/S: / [address] [place] [place] Unit #: [id number] Loc: [place] [address] Phys: Arminda Alvarado MD Acct: [id number] Dis Date: Status: REG CLI PHONE #: [phone] Exam Date: 01/31/2023942 FAX #: Reason: EPIGASTRIC PAIN EXAMS: CPT: [id number] US ABDOMEN COMPLETE 22242 S 17 TIME OF STUDY: 01/31/2023 8:47 [...] not well visualized due to overlying bowel gas.Both kidneys are normal in size and echogenicity. The cortical thickness and the cortical medullarydifferentiation is well maintained. The right kidney measures 9.4 cm in length and the left 9.4 cm.There is a 9 mm nonobstructive calculus in [...] and signed by: Shaun Montes M.D. CC: Arminda Alvarado MD Technologist: Maia Horvath [facility] Date/Time: 01/31/2023 (1100) [email or web address] PAGE 1 Signed Report Name: JUNE GALLARDO : 1990 Age/S: 32 / F [id number] Unit #: [id number] Loc: [place] [address] Phys: Arminda Alvarado MD Acct: [id number] Dis Date: Status: REG CLI PHONE #: [phone] Exam Date: 01/31/202343 FAX #: Reason: EPIGASTRIC PAIN EXAMS: CPT: [id number] US ABDOMEN COMPLETE 50436 (Continued) Orig Print D/T: S: 01/31/2023 (1104) Probe: PAGE 2 Signed [id number] 14:50:00* Test Item Value Reference Range Interpretation Comme lorelei SURGICAL (test code = SR) R UN DATE: 05/01/22 [facility] PAGE 1 RUN TIME: 1451 Specimen Inquiry RUN USER: INTERFACE P ATIENT: JUNE GALLARDO LOC: AMISHA U #: [id number] AGE/SX: 31/F ROOM: [facility] RE04/29/22[facility] DR: Kiersten Damon MD : [birth year] BED: A DIS: 04/30/22 STATUS: DIS Cm TLOC: SPEC #: [id number] RECD: 04/29/22-1504 STATUS: TOBY ZARATE #: [id number] DONNA: 04/29/22-[address]: Kiersten Damon MD ENTERED: 04/29/22 SP TYPE: SURGICAL OT DR: ORDERED: ANATOMIC SPEC, SPEC TRACK, [id number] PROCEDURES: [id number] (04/29/22) TISSUES: A. UTERUS W/WO TUBES OVARIES [...] endocervical /lower uterine segmentresection margin inked orange. Edge Baster sections with entire cervixare submitted as follows: A 1-A2, A3-A4 12:00 to 3:00 cervix A 5-A 6, A 7-A8 3:00 to 6:00 cervix CONTINUED ON NEXT PAGE R UN DATE: 05/01/22 [facility] PAGE 2 RUN TIME: 1451 Specimen Inquiry RUN USER: INTERFACE S PEC #: [id number] PATIENT: JUNE GALLARDO #[id number] (Continued) GROSS DESCRIPTION (Continued) A9-A10 6:00 to 9:00 cervix A11-A 12, A13 -A14 9:00 to 12:00 cervix A15 anterior lower uterine segment longitudinal section A16 posterior lower uterine segment longitudinal section A17-A18 anterior endomyometrium, 1 full-thickness section each A19 -A20 posterior endomyometrium, 1 full-thickness section each A21-A22 entire larger fallopian tube segment A23-A24 entire smaller fallopian tube [id number] Technical component performed at [facility] [facility] [place] [address] Immunohistochemical stains and Special Stains are performed at [address], [address], [place] [address] Unless gross only, the diagnosis is based [...] OF CERVIX, STAGE 3. - Signed _ Alejandra Hernandezdave 05/01/22 1450 END OF REPORT CBC W/AUTO [id number] 04:44:00* Test Item Value Reference Range Interpretation [...] code = PLTMR) NORMAL NORMAL UR HCG [id number] 11:10:00* Test Item Value Reference Range Interpretation Comme [facility] UR HCG QUAL (test code = HCGQLU) NEGATIVE 1. Very dilute u rine specimens, as indicated by a lowspecific gravity, may not contain inbound call center representative levels ofhCG. 2. False negative results may occur when the levels of hCGare below the sensitivity level of the test. If is still suspected, a first morningurine specimen should be collected 48 hours later andtested. HGB [id number] 14:15:00* Test Item Value Reference Range Interpretation Comme nts HEMOGLOBIN (test code = HGB) 11.5 g/dL 10.1-13.8 N HEMATOCRIT (test code = HCT) 35.3 % 32.5-41.8 N UR HCG [id number] 14:05:00* Test Item Value Reference Range Interpretation Comme nts UR HCG QUAL (test code = HCGQLU) NEGATIVE 1. Very dilute u rine specimens, as indicated by a lowspecific gravity, may not contain inbound call center representative levels ofhCG. 2. False negative results may occur when the levels of hCGare below the sensitivity level of the test. If is still suspected, a first morningurine specimen should be collected 48 hours later andtested. Notes Date/Time Note Provider Source 2023-11-26 13:06:00 [facility] Full Op Note REPORT#:[id number] REPORT STATUS: Signed REPORT INITIALIZATION DATE:11/26/23 TIME: 1306 PATIENT: JUNE GALLARDO UNIT #: [id number] ROOM/BED: : 91 AGE: 33 SEX: F ATTEND: Leeann Mercado MD ADM AUTHOR: Leeann Mercado MD REPT SERVICE DT/TIME: 11/26/23 1306 * ALL edits or amendments must be made on the electronic/computer document * Operative Report Start date: 11/26/23 Start time: 1219 Pre-procedure diagnosis: 1. Right ovarian cyst 2. Pelvic pain Post-procedure diagnosis: 1. Right ovarian cyst 2. Pelvic pain Procedures performed: Laparoscopic right salpingectomy and right paratubal cyst removal Technique/Procedure: After informed consent was obtained, the patient was taken to the operating room where general anesthesia was administered and found to be adequate. She was then prepped and draped in sterile fashion in lithotomy position in [facility]. A time out procedure was performed and the OR team agreed to the planned procedure. A red rubber catheter was placed and found to be draining clear urine. Attention was then turned to the abdomen where 0.25% Marcaine was used to inject the umbilicus. A 5mm skin incision was made with the scalpel and 5mm trocar introduced under direct visualization. Intra-peritoneal placement was confirmed visually and the gas was used to insufflate the abdomen to a pressure of 15mm Hg and patient placed in Trendelenburg. Additional 5mm ports were then placed in the right and left lower quadrant after injection of 0.25% Marcaine. These ports were all placed under direct visualization without any direct injury noted. A survey of the abdomen was performed: see operative findings for full details. The bipolar cautery was used to cauterize the right mesosalpinx and segment of remaining right fallopian tube. The mesosalpinx and right fallopian tube were transected with the Harmonic scalpel with care not to rupture the right paratubal cyst. The cyst and tube were placed in the cul de sac. Epiploic adhesions to the vaginal cuff area were lysed with Harmonic scalpel. A loop of epiploic adhesion to the left ovary were lysed with the Harmonic scalpel. A 5 mm Endocatch bag was placed through the right lower quadrant port and the cyst and tube were placed inside the bag. The cyst was ruptured within the bag with clear fluid noted. The bag was brought up through the incision. Fluid was suctioned from the bag and the entire bag was then able to be removed through the incision. The pedicles were inspected and found to be hemostatic. The abdomen was then desufflated. All instruments and trocars were removed from the abdomen. The skin incisions were closed with 3-0 Monocryl suture and Dermabond. The red rubber catheter was then removed from the bladder. The patient tolerated the procedure well. Sponge, lap and needle counts were correct. Antibiotic was given prior to the start of surgery for surgical prophylaxis. Primary Surgeon: Leeann Mercado MD [employer] Brm Developer(s): Dayna Villalba MD Anesthesia: general anesthesia Operative findings: 6 cm simple right paratubal cyst noted on the remaining fallopian tubal segment. Patient had prior total vaginal hysterectomy and bilateral salpingectomies. Small right tubal segment noted and transected along with the right paratubal cyst. Epiploic adhesions to the vaginal cuff area and left ovary were lysed. The liver edge and appendix appeared normal. Complications: none Estimated blood loss in ml's: 5 Specimens removed/altered: right fallopian tubal segment and right paratubal cyst Implant(s): none Fluids: 1 L lactated ringers Urine output: 50 cc Approach: laparoscopic Disposition: plan to D/C home, PACU, stable Counts: Sponge count: correct Instrument count: correct Needle count: correct Wound class: clean at 1359 RPT #:[id number] END OF REPORT [facility] 2023-11-12 21:34:00 [facility] ([facility]) EMERGENCY PROVIDER REPORT REPORT#:[id number] REPORT STATUS: Signed DATE:11/12/23 TIME: 2133 PATIENT: JUNE GALLARDO UNIT #: [id number] ROOM/BED: AGE: 33 SEX: F PCP PHYS: Arminda Alvarado MD SERVICE AUTHOR: Susy Villa MD * ALL edits or amendments must be made on the electronic/computer document * HPI- Female Free Text HPI Notes Free Text HPI Notes 33 y.o. woman with history of Ovarian cyst, followed by her OBGYN and has plan for surgecal intervention in November, presenting with worsening RLQ pain today. Patient states pain is 8/10. General Confirmed Patient Yes Patient Type New patient Initial Greet Date/Time 11/12/231803 PCP ARMINDA FERNANDEZ MD Presentation Chief Complaint Abdominal pain, Pelvic pain Reason for ED Visit (v.PCP/UC) RLQ PAIN Hx Obtained From Patient )( Sudden in Onset? No Onset Occurred 2 MONTHS AGO Symptom Duration Since onset Progression since Onset Gradually worsening Risk- Female Risk Stratification Ectopic Risk factors N/A Review of Systems ROS Statements Complete sys rev neg except as marked. Focused Review of Systems Female Reports: Pelvic pain. Denies: . Past Medical History - Adult Stated Complaint RT SIDE AB PAIN X6 MONTHS/ Hx OF CYST Allergies Coded Allergies: No Known Allergies (11/12/23) Home Medications Active Scripts IBUPROFEN (MOTRIN) 800 MG PO Q8HR@0600,1400,1999 IBUPROFEN (MOTRIN) 800 MG PO Q8HR@0600,1400,1999 #40 TAB Ref 1 Prov: 04/30/22 Discontinued Scripts traMADol (ULTRAM) 50 MG PO Q6H PRN PRN PAIN SCALE 7-10 (USE 1ST) traMADol (ULTRAM) 50 MG PO Q6H PRN PRN PAIN SCALE 7-10 (USE 1ST) #10 TAB Prov: 04/30/22 DC: 11/12/23 1858 Patient stopped taking Reported Medications busPIRone (BUSPIRONE) 7.5 MG PO BID ESCITALOPRAM (LEXAPRO) 20 MG PO DAILY PRAZOSIN (MINIPRESS) traZODone (DESYREL) 150 MG PO BEDTIME PROPRANOLOL (INDERAL) Discontinued Reported Medications ACETAMINOPHEN (TYLENOL) 500 MG PO Q4H PRN PRN PAIN busPIRone (BUSPIRONE) 10 MG PO BID hydrOXYzine PAMOATE (VISTARIL) Review of Nursing Notes Rev avail, and agree Physical Exam Vital Signs Vital Signs First Documented: Result Date Time Pulse Ox 100 11/11 1754 B/P 115/75 11/11 1754 B/P Mean 88 11/11 1754 O2 Delivery Room air 11/11 1754 Temp 36.8 11/11 1754 Pulse 73 11/11 1754 Resp 17 11/11 1754 Last Documented: Result Date Time Pulse Ox 100 11/11 2104 B/P 115/86 11/11 2104 B/P Mean 95 11/11 2104 O2 Delivery Room air 11/11 2104 Temp 36.8 11/11 2104 Pulse 68 11/11 2104 Resp 11/11 Review of Vital Signs Reviewed, Vital signs normal Focused PE General/Const General/Const Awake, Alert, No acute distress, Well appearing Resp/Chest Respiratory/Chest Breath sounds NL, Breath sounds = bilat, No respiratory distress Cardiovascular Cardiovascular Heart rate NL, Regular rhythm, Heart sounds NL Abdomen/GI Abdomen/GI Soft, BS normoactive Tenderness/Guarding/Rebound Tender RLQ (Severe). Genitourinary General Exam deferred Interpretation Diagnostics Lab Results Interpretation Results Laboratory Tests 11/12/231837: [Embedded Image Not Available] Laboratory Tests: 11/11 1800 Chemistry Sodium (136 - 145 mEq/L) 138 Potassium (3.4 - 4.5 mEQ/L) 3.9 Chloride (98 - 107 mEq/L) 107 Carbon Dioxide (22 - 31 mEq/L) 26 Anion Gap (10 - 20) 8.9 L BUN (8 - 23 mg/dL) 14 Creatinine (0.55 - 1.02 mg/dL) 0.8 Glomerular Filtr Rate (>60 ml/min) 100.33 Glucose (74 - 106 mg/dL) 86 Calcium (8.3 - 10.6 mg/dL) 8.6 Total Bilirubin (0.3 - 1.2 mg/dL) 0.2 L AST (< 34 units/L) 16 ALT (10 - 49 units/L) 8 L Total Alk Phosphatase (46 - 116 units/L) 65 Total Protein (5.7 - 8.2 g/dL) 7.4 Albumin (3.2 - 4.8 g/dL) 4.4 Serum , Qual NEGATIVE Hematology WBC (6.5 - 12.3 K/mm3) 6.7 RBC (3.51 - 4.69 M/mm3) 3.82 Hgb (10.1 - 13.8 g/dL) 11.7 Hct (32.5 - 41.8 %) 34.0 MCV (84.6 - 96.6 fL) 89.0 MCH (27.3 - 33.9 pg) 30.6 MCHC (32.0 - 34.2 gm/dL) 34.4 H RDW (12.2 - 16.3 %) 11.7 L Plt Count (134 - 363 K/mm3) 269 MPV (9.2 - 12.7 fL) 10.9 Neut % (Auto) (57.9 - 77.3 %) 56.9 L Lymph % (Auto) (14.5 - 29.7 %) 33.9 H Bee % (Auto) (3.6 - 10.2 %) 6.4 Eos % (Auto) (0.0 - 3.0 %) 2.4 Baso % (Auto) (0.1 - 0.9 %) 0.3 Neut # (Auto) (K/mm3) 3.8 Lymph # (Auto) (K/mm3) 2.3 Bee # (Auto) (K/mm3) 0.4 Eos # (Auto) (K/mm3) 0.16 Baso # (Auto) (K/mm3) 0.0 Urines Urine Color (YELLOW) YELLOW Urine Appearance (CLEAR) CLEAR Urine pH (5 - 9) 6.0 Ur Specific [place] (1.001 - 1.035) 1.010 Urine Protein (NEG) NEGATIVE Urine Glucose (UA) (NEG) NEGATIVE Urine Ketones (NEG) NEGATIVE Urine Blood (NEG) NEG Urine Nitrite (NEG) NEG Urine Bilirubin (NEG) NEGATIVE Urine Urobilinogen (NEG mg/dL) NEGATIVE Ur Leukocyte Esterase (NEG) NEG Urine RBC (NONE SEEN #/hpf) 0-2 Urine WBC (NONE SEEN #/hpf) 0-2 Ur Epithelial Cells (RARE - FEW #/HPF) RARE Urine Bacteria (RARE - FEW /HPF) RARE Urine Mucus (NONE SEEN) RARE Recent Impressions: ULTRASOUND - US TRANSVAGINAL W/PELVIS 11/11 1938 Report Impression - Status: SIGNED Entered: 11/12/20232024 IMPRESSION: Right ovarian/paraovarian cyst. Impression By: Latosha Villa MD ULTRASOUND - DUP AB/PEL/SC/LTD 11/11 1938 Report Impression - Status: SIGNED Entered: 11/12/20232024 IMPRESSION: Right ovarian/paraovarian cyst. Impression By: Latosha Villa MD ULTRASOUND - US PELVIS COMPLETE 11/11 1938 Report Impression - Status: SIGNED Entered: 11/12/20232024 IMPRESSION: Right ovarian/paraovarian cyst. Impression By: Latosha Villa MD Re-Evaluation MDM Re-Evaluation/Progress Re-Evaluation/Progress Text/Dict Note Reviewed lab results and U/S results with patient. WIll keep appointment with her OBGYN Time of Re-Eval 2139 Re-Eval Status Improved ED Course Medication(s) Ordered Medication(s) Ordered: Central Nervous System Agents Sig/Yashira Start time Last Medication Dose Route Stop Time Status Admin Morphine Sulfate 4 MG X1ED STA 11/11 2049 DC 11/11 IV 11/11 Ketorolac 30 MG X1ED STA 11/12 1911 DC 11/11 Tromethamine IV 11/11 Electrolytic, Caloric, And Sana Sig/Ysahira Start time Last Medication Dose Route Stop Time Status Admin Sodium Chloride 1,000 ML X1ED STA 11/11 2050 DC 11/11 IV 11/11 Gastrointestinal Drugs Sig/Yashira Start time Last Medication Dose Route Stop Time Status Admin Ondansetron HCl 4 MG X1ED STA 11/11 2050 DC 11/11 IV 11/11 Ondansetron HCl 4 MG X1ED STA 11/12 1911 DC 11/11 IV 11/11 Patient Discharge Departure Vital Signs/Condition Vital Signs First Documented: Result Date Time Pulse Ox 100 11/11 1754 B/P 115/75 11/11 175 B/P Mean 88 11/11 1754 O2 Delivery Room air 11/11 1754 Temp 36.8 11/11 1754 Pulse 73 11/11 1754 Resp 17 11/11 1754 Last Documented: Result Date Time Pulse Ox 100 11/11 2104 B/P 115/86 11/11 2104 B/P Mean 95 11/11 2104 O2 Delivery Room air 11/11 2104 Temp 36.8 11/11 2104 Pulse 68 11/11 2104 Resp 17 11/11 2104 All vital signs available at the time of this entry have been reviewed. Condition Stable Clinical Impression Clinical Impression Primary Impression: Right ovarian cyst Disposition Decision Discharge )( Discharged to Home Yes )( Time 2140 )( Date 11/12/23 Discharge/Care Plan Counseled Regarding Diagnosis, Lab results, Imaging studies, Need for follow-up, When to return to ED (Auto) Prescriptions Current Visit Scripts KETOROLAC (TORADOL) 10 MG PO Q6H PRN PRN PAIN KETOROLAC (TORADOL) 10 MG PO Q6H PRN PRN PAIN #20 TABS Patient Instructions ED Ovarian Cyst Additional Instructions follow-up with Dr. Alvarado in3-5 days Discharge Note I have spoken with the patient and/or caregivers. I have explained the patient's condition, diagnoses and treatment plan based on the information available to me at this time. I have answered the patient's and/or caregiver's questions and addressed any concerns. The patient and/or caregivers have as good an understanding of the patient's diagnosis, condition and treatment plan as can be expected at this point. The vital signs have been stable. The patient's condition is stable and appropriate for discharge from the emergency department. The patient will pursue further outpatient evaluation with the primary care physician or other designated or consulting physician as outlined in the discharge instructions. The patient and/or caregivers are agreeable to this plan of care and follow-up instructions have been explained in detail. The patient and/or caregivers have received these instructions in written format and have expressed an understanding of the discharge instructions. The patient and/or caregivers are aware that any significant change in condition or worsening of symptoms should prompt an immediate return to this or the closest emergency department or a call to 911. at 2143 RPT #:[id number] END OF REPORT [facility] 2023-11-12 18:32:00 [facility] ([facility]) EMERGENCY PROVIDER REPORT REPORT#:[id number] REPORT STATUS: Signed DATE:11/12/23 TIME: 1831 PATIENT: JUNE GALLARDO UNIT #: [id number] ROOM/BED: AGE: 33 SEX: F PCP PHYS: Arminda Alvarado MD SERVICE DT: AUTHOR: Mayte Zepeda DO * ALL edits or amendments must be made on the electronic/computer document * Provider in Triage - Adult Provider in Triage Initial Greet Date/Time 11/12/23 1804 Greet Note I have greeted and performed a focused rapid initial assessment of this patient. A comprehensive ED assessment and evaluation of the patient, analysis of all test results, and completion of the medical decision-making process will be conducted by additional ED providers. PMH-Provider in Triage Stated Complaint RT SIDE AB PAIN X6 MONTHS/ Hx OF CYST Allergies Coded Allergies: No Known Allergies (11/12/23) Home Medications Active Scripts IBUPROFEN (MOTRIN) 800 MG PO Q8HR@0600,1400,1999 IBUPROFEN (MOTRIN) 800 MG PO Q8HR@0600,1400,1999 #40 TAB Ref 1 Prov: 04/30/22 traMADol (ULTRAM) 50 MG PO Q6H PRN PRN PAIN SCALE 7-10 (USE 1ST) traMADol (ULTRAM) 50 MG PO Q6H PRN PRN PAIN SCALE 7-10 (USE 1ST) #10 TAB Prov: 04/30/22 Reported Medications ACETAMINOPHEN (TYLENOL) 500 MG PO Q4H PRN PRN PAIN busPIRone (BUSPIRONE) 7.5 MG PO BID busPIRone (BUSPIRONE) 10 MG PO BID ESCITALOPRAM (LEXAPRO) 20 MG PO DAILY PRAZOSIN (MINIPRESS) traZODone (DESYREL) 150 MG PO BEDTIME PROPRANOLOL (INDERAL) hydrOXYzine PAMOATE (VISTARIL) at 1832 RPT #:[id number] END OF REPORT [facility] 2022-04-30 13:25:00 [facility] ([facility]) Discharge Summary REPORT#:[id number] REPORT STATUS: Signed DATE:04/30/22 TIME: 1325 PATIENT: JUNE GALLARDO UNIT #: [id number] ROOM/BED: 2624-A : 91 AGE: 31 SEX: F ATTEND: Kiersten Damon MD ADM AUTHOR: Kiersten Damon MD * ALL edits or amendments must be made on the electronic/computer document * PCP PCP PCP: PCP: Kiersten Damon MD General Information Problem List/A P: 1. Menometrorrhagia 2. CARLOS EDUARDO III (cervical intraepithelial neoplasia III) Free Text A P: s/p TVH-BS - recovering well Date of admission: Observation Start Date: 04/29/22 Date of admission: 04/29/22 Discharge date: 04/30/22 Admission diagnosis: CIN3 Menometarrhagia Discharge diagnosis: same Hospital course: DIRECTOR OF GIFT PLANNING DISCHARGE SUMMARY Admit Date: [04/29/2022] Discharge Date: [04/30/2022] Attending MD: [Kiersten West M.D.] Final Diagnoses: 1. [ CARLOS EDUARDO 3. menometarrahgia] 2. s/p TVH-BS 3. Benign postoperative course HPI: This is a 31 WF with CIN3 and menometarrhgia not desiring future fertility. For more information, please refer to the admission note. Hospital course: The patient was admitted to [facility] where consent was signed and placed in [...] increased vaginal bleeding >1 pad/hr, shortness of breath or chest pain, increased incisional pain, redness [...] NEEDED. as needed for PAIN SCALE 7-10 ( USE 1ST) [...] GI: soft, non-tender, no guarding, no rebound, no distention Extremities: no calf tenderness Neuro/FIRE APPARATUS SPRINKLER INSPECTOR: alert, oriented X 3 Considered stroke alert: [...] (Auto) (14.5 - 29.7 %) 8.4 L Bee % (Auto) (3.6 - 10.2 %) 7.1 Eos % (Auto) (0.0 - 3.0 %) 0.0 Baso % (Auto) (0.1 - 0.9 %) 0.1 Neut # (Auto) (K/mm3) 11.6 Lymph # (Auto) (K/mm3) 1.2 Bee # (Auto) (K/mm3) 1.0 Eos # (Auto) (K/mm3) 0 Baso # (Auto) (K/mm3) 0.0 Results: labs reviewed Discharge Instructions PCP )( Discharge to: Home/Self Care Discharge Instructions Additional Discharge Routines: Attending Follow-Up )( Diet: Regular )( Activity: No Strenuous Activity )( Wound/dressing care: OK to shower tomorrow Prescriptions: e-prescribe Rx drug database reviewed: yes Discharge management: less than 30 mins Time spent: Time spent on patient care (minutes): 20 >50% spent on counseling/coordination of care: yes Follow-up Appointments Attending Physician: Attending Physician: Kiersten Damon MD Phone: [phone] Attending physician follow up timeframe: In 4-5 weeks at 1332 RPT #:[id number] END OF REPORT [facility] 2022-04-29 14:34:00 [facility] ([facility]) Full Op Note REPORT#:[id number] REPORT STATUS: Signed DATE:04/29/22 TIME: 1434 PATIENT: JUNE GALLARDO UNIT #: [id number] ROOM/BED: : 91 AGE: 31 SEX: F ATTEND: Kiersten Damon MD ADM AUTHOR: Kiersten Damon MD * ALL edits or amendments must be made on the electronic/computer document * Operative Report ORM Surgeries: Surgery Date and Time: 04/29/2022 1200 Proposed Primary Procedure: HYSTERECTOMY VAGINAL BS Start date: 04/29/22 Start time: 1321 Pre-procedure diagnosis: CIN3 Menometarrhagia Post-procedure diagnosis: same Procedures performed: Total Vaginal hysaterectomy Bilateral salpingectomies Technique/Procedure: Rebviewed procedure with risk/benefits with patient. Desirng to proceed with surgery. After identification patient taken to OR. Placed in supine pposition and General anesthesia administered by Anesthesia staff. Patient then placed in dorsolithotomy posistin for vaginal procedure. Patient prepped and [...] overlying the cul de sacs. The posterior cul de sac was entered sharply with Giles scissors and the long duck speculum was placed. Uterosacral ligaments were identified, clapmed, cut and ligated with 0 Vicryl suture and tagged. The bladder pillars were clamped cut and ligated. The anterior culde sac was dissected and entered. The right angle retractor was placed in this space. Successive pedicles were taken [...] Fallopian tues were identified, grasped with a Navi clampy and the clamped across the mesosalpinx [...] Kiersten Damon M.D. Co-surgeon: Irlanda flores M.D. Oracle Brm Developer(s): Akshat Mcintyre [facility] Kalyan melendez m.D., R4 Anesthesiologist: Francisco Javier Quintanilla Anesthesia: general anesthesia Indications: CIN3 Menometarrahgia Operative findings: Small uterus with good descent under anesthesia. Normal Tubes/ovaries Complications: none Estimated blood loss in ml's: 50cc Blood products: none Specimens removed/altered: uterus with cervix attached. Bilateral fallopian tubes Cultures sent: No Drain(s)/tube(s): garcia Implant(s): none Fluids: 800cc Tourniquet: n/a Urine output: 300cc Approach: vaginal Disposition: PACU, MEDSURG Counts: Sponge count: correct Instrument count: correct Needle count: correct Wound class: clean-contaminated Dictation number: n/a at 1459 RPT #:[id number] END OF REPORT [facility]
[2024-11-16 20:10] LABS: Absolute Lymphocytes (CBC) 1.2 K/uL (0.7-4.9); Hematocrit 33.9 % (36.0-45.0); Hemoglobin 11.6 g/dL (12.0-15.0); MCH 30.9 pg (27.0-35.0); MCHC 34.1 g/dL (32.0-36.0); MCV 90.5 fL (80-100); MPV 9.0 fL (7.6-11.3); Nucleated RBC Absolute Count 0.0 (0-0); Nucleated Red Blood Cells % 0.1 % (0-0); RBC Red Blood Cell Count 3.74 M/uL (3.86-4.86); White Blood Count 3.40 thou/uL (4.3-10.9)
[2024-11-16] MEDS ORDERED: ONDANSETRON 4 MG/2 ML VIAL ONE (20:14)
[2024-11-16] MEDS ORDERED: FAMOTIDINE 20 MG/2 ML VIAL IV ONE (20:14)
[2024-11-16] MEDS ORDERED: KETOROLAC 30 MG/ML INJ ONE (20:14)
[2024-11-16] MEDS ORDERED: NA CHLORIDE 0.9% 1,000 ML ONE (20:15)
[2024-11-16 20:27] LABS: ALT/SGPT 19.0 U/L (13-56); AST/SGOT 11.0 U/L (15-37); Albumin 4.3 g/dL (3.4-5.0); Albumin/Globulin Ratio 1.4 (1.1-1.8); Alkaline Phosphatase 45.0 U/L (45-117); Anion Gap 7.4 mEq/L (5.0-15.0); BUN Blood Urea Nitrogen 8.0 mg/dL (7-18); Globulin 3.0 g/dL (2.3-3.5); Glucose Level 99.0 mg/dL (74-106); Lipase 31.0 U/L (13-75); Potassium 3.4 mEq/L (3.5-5.1)
--- NOTE | 2024-11-16 21:01 | RAD REPORT ---
EXAMINATION: CT ABDOMEN AND PELVIS WITH CONTRAST CLINICAL INDICATION: Abdominal pain TECHNIQUE: CT abdomen and pelvis was performed, after the administration of 100 cc Isovue-300.. Sagit bita and coronal reconstructions were obtained. One or more of the following dose reduction techniques were used: Automated exposure control, adjustment of the mA and kV according to patient si ze, and iterative reconstruction. Unless otherwise specified, incidental findings do not require dedicated imaging follow-up. [id number]. Oral contrast was not given which limits evaluation of bowel and appendix. COMPARISON: .March 2024 FINDINGS: Liver, spleen, pancreas, adrenals and kidneys appear unremarkable No evidence of diverticulitis. Mild to moderate chronic compression deformity L4 vertebral body. Normal appendix. No adnexal mass. : IMPRESSION: No acute abnormality displayed
--- NOTE | 2024-11-16 21:14 | ER ---
Nurse's Notes [facility] Name: Shital Ramirez Age: 34 yrs Sex: Female : 1990 Arrival Date: 11/16/2024 Time: 19:29 Bed 15 Private MD: Diagnosis: Upper abdominal pain, unspecified;Nausea with vomiting, unspecified Presentation: 11/16 19:54 Chief complaint: Patient states: c/o intermittent epigastric pain and no appetite for ha1 about [address] Herrera yesterday and he mentioned concern for pancreatic cancer. Hx of heavy drinking- stopped 2 years ago. Coronavirus screen: Vaccine status: Patient reports being unvaccinated. Ebola Screen: No symptoms or risks identified at this time. Initial Sepsis Screen: Does the patient meet any 2 criteria? No. Patient's initial sepsis screen is negative. Does the patient have a suspected source of infection? No. Patient's initial sepsis screen is negative. Risk Assessment: Do you want to hurt yourself or someone else? Patient reports no desire to harm self or others. Onset of symptoms is unknown. 19:54 Method Of Arrival: Ambulatory ha1 19:54 Acuity: AYE 3 ha1 OUTSOLE BEVELER: 19:56 LMP N/A - Hysterectomy, Not ha1 Historical: - Allergies: 19:56 No Known Allergies; ha1 - PMHx: 19:56 Anxiety; Depression; recurrent cold sores (Unknown); ha1 - PSHx: 19:56 partial hysterectomy; Cholecystectomy; ha1 - Immunization history:: Adult Immunizations up to date. - Infectious Disease History:: Denies. - Social history:: Smoking status: Reported history of juuling and/or vaping. Screenin:03 [facility] ED Fall Risk Assessment (Adult) History of falling in the last 3 months, kt5 including since admission No falls in past 3 months (0 pts) Confusion or Disorientation No (0 pts) Intoxicated or Sedated No (0 pts) Impaired Gait No (0 pts) Mobility Assist Device Used No (0 pt) Altered Elimination No (0 pt) Score/Fall Risk Level 0 - 2 = Low Risk Oriented to surroundings, Maintained a safe environment. Abuse screen: Denies threats or abuse. Denies injuries from another. Nutritional screening: Has had N/V for 3 or more days. Tuberculosis screening: No symptoms or risk factors identified. Assessment: 20:03 General: Appears in no apparent distress. malnourished, Behavior is calm, cooperative, kt5 appropriate for age. Pain: Complains of pain in epigastric area, right upper quadrant and right lower quadrant Pain does not radiate. Pain currently is 5 out of 10 on a pain scale. Quality of pain is described as sharp, Pain began gradually, Is intermittent, episodic. Neuro: No deficits noted. Nova Agitation-Sedation Scale (RASS): 0 - Alert and Calm Level of Consciousness is awake, alert, obeys commands, Oriented to person, place, time, situation. Cardiovascular: No deficits noted. Reports None Denies chest pain, Heart tones S1 S2 present Capillary refill < 3 seconds is brisk Clubbing of nail beds is absent JVD is absent Pulses are all present. Edema is absent. Rhythm is. Respiratory: No deficits noted. Airway is patent Respiratory effort is even, unlabored, Respiratory pattern is regular, symmetrical. GI: Abdomen is flat, distended, Bowel sounds present X 4 quads. Abdomen is tender to palpation in epigastric area, right upper quadrant and right lower quadrant Reports lower abdominal pain, diarrhea, epigastric pain, nausea, vomiting. : No deficits noted. No signs and/or symptoms were reported regarding the genitourinary system. 20:03 EENT: No deficits noted. No signs and/or symptoms were reported regarding the EENT kt5 system. Derm: Skin is intact, is healthy with good turgor, Skin is dry, Skin is pink, warm \T\ dry. Skin temperature is warm. Musculoskeletal: No deficits noted. No signs and/or symptoms reported regarding the musculoskeletal system. 20:33 General: pt to ct with tech via w/c. kt5 20:54 Reassessment: Patient appears in no apparent distress at this time. No changes from kt5 previously documented assessment. Patient is alert, oriented x 3, equal unlabored respirations, skin warm/dry/pink. Patient denies pain at this time. Patient states feeling better. Patient states symptoms have improved. Vital Signs: 19:54 BP 114 / 69; Pulse 81; Resp 17; Temp 98.2; Pulse Ox 100% ; Weight 44.45 kg; Height 5 ha1 ft. 0 in. ; Pain 6/10; 20:54 BP 113 / 83; Pulse 66; Resp 16; Pulse Ox 95% ; kt5 19:54 Body Mass Index 19.14 (44.45 kg, 152.4 cm) ha1 19:54 Pain Scale: Adult ha1 ED Course: 19:31 Patient arrived in ED. mr 19:41 David Figueroa MD is Attending Physician. tw7 19:44 Lidia Gomez FNP-C is [facility] kb 19:56 Triage completed. ha1 19:56 Arm band placed on Patient placed in an exam room. ha1 20:01 Initial lab(s) drawn, by laborer petroleum refinery, sent to lab. Inserted saline lock: 20 gauge in left ts3 antecubital area, using aseptic technique. Blood collected. Flushed with 10 mL NS. 20:02 Urine collected: clean catch specimen, sent to lab. ts3 20:03 Patient has correct armband on for positive identification. Placed in gown. Bed in low kt5 position. Call light in reach. Side rails up X 1. Client placed on continuous cardiac and pulse oximetry monitoring. NIBP monitoring applied. Door closed. Noise minimized. Warm blanket given. Pillow given. 20:03 Family accompanied patient. kt5 20:06 Radiology exam delayed due to lab results not completed at this time. (HCG) nj (BUN/Creatinine) test not completed at this time. IV insertion attempt and/or patient not having appropriate IV at this time. 20:12 Rachael Buenrostro, RN is Primary Nurse. kt5 20:45 CT Abd/Pelvis - IV Contrast Only In Process Unspecified. EDMS 21:24 IV discontinued, intact, bleeding controlled, No redness/swelling at site. Pressure kt5 dressing applied. 21:31 Provided Education on: meds and follow up. kt5 21:32 No provider procedures requiring assistance completed. kt5 Administered Medications: 20:24 Drug: Famotidine IVP 20 mg IVP once; dilute with 10 mL 0.9% NaCl; give over 2 minutes kt5 Route: IVP; Site: left antecubital; 21:22 Follow up: Response: No adverse reaction; Nausea is decreased kt5 20:24 Drug: Ondansetron IVP 4 mg IVP once; over 2 minutes Route: IVP; Site: left antecubital; kt5 21:23 Follow up: Response: No adverse reaction; Nausea is decreased kt5 20:24 Drug: NS 0.9% IV 1000 ml IV at 1 bolus Per protocol; to be given as a bolus over 60 kt5 minutes Route: IV; Rate: 1 bolus; Site: left antecubital; 21:22 Follow up: IV Status: Completed infusion; IV Intake: 1000ml kt5 20:25 Drug: TORadol - Ketorolac IVP 15 mg IVP once Route: IVP; Site: left antecubital; kt5 Medication: 20:03 VIS not applicable for this client. kt5 Intake: 21:22 IV: 1000ml; Total: 1000ml. kt5 Outcome: 21:13 Discharge ordered by . mehdi 21:24 Discharged to home ambulatory, with family, kt5 21:24 Condition: stable 21:24 Discharge instructions given to patient, family, Instructed on discharge instructions, follow up and referral plans. Demonstrated understanding of instructions, follow-up care, medications, Prescriptions given X 1, 21:32 Patient left the ED. kt5 Signatures: Dispatcher [employer] EDMS Lidia Gomez, GLASS ARTIST-C GLASS ARTIST-Ckb Marina Henson, Reg Reg mr CalixtoBart Heidy, RN RN ha1 David Figueroa MD MD tw7 Lynnette Ham ts3 Rachael Buenrostro, RN RN kt5 Corrections: (The following items were deleted from the chart) 21:32 21:24 Discharge instructions given to patient, family, Instructed on discharge kt5 instructions, follow up and referral plans. Demonstrated understanding of instructions, follow-up care, medications, Prescriptions given X 2, kt5
--- NOTE | 2024-11-16 21:14 | EDPHYS ---
Physician Documentation [facility] Name: Shital Ramirez Age: 34 yrs Sex: Female : 1990 Arrival Date: 11/16/2024 Time: 19:29 Bed 15 Private MD: ED Physician David Figueroa HPI: 11/16 22:43 This 34 yrs old Female presents to ER via Ambulatory with complaints of Abdominal Pain. kb 22:43 Patient is a 34-year-old female who presents for epigastric pain, nausea, vomiting, kb weight loss that started 3 or more months ago. Reports symptoms have been intermittent. States she was seen by her PCP, Abraham Herrera yesterday, had orders for outpatient CT and lab work written. States her PCPs was concerned that she had pancreatic cancer so wanted her to get worked up for that. States the pain was worse today so she decided to come to the ER for evaluation.. HOUSING INSPECTORS: 19:56 LMP N/A - Hysterectomy, Not ha1 Historical: - Allergies: 19:56 No Known Allergies; ha1 - PMHx: 19:56 Anxiety; Depression; recurrent cold sores (Unknown); ha1 - PSHx: 19:56 partial hysterectomy; Cholecystectomy; ha1 - Immunization history:: Adult Immunizations up to date. - Infectious Disease History:: Denies. - Social history:: Smoking status: Reported history of juuling and/or vaping. ROS: 22:42 Constitutional: As per HPI kb Exam: 22:42 Constitutional: This is a well developed, well nourished patient who is awake, alert, kb and in no acute distress. Head/Face: Normocephalic, atraumatic. ENT: Moist Mucous membranes Cardiovascular: Regular rate Respiratory: Respirations even and unlabored. No increased work of breathing. Talking in full sentences Skin: Warm, dry with normal turgor. Normal color. MS/ Extremity: Pulses equal, no cyanosis. Neurovascular intact. Full, normal range of motion. Neuro: Awake and alert, GCS 15, oriented to person, place, time, and situation. 22:42 Abdomen/GI: Inspection: abdomen appears normal, Bowel sounds: normal, Palpation: soft, in all quadrants, mild abdominal tenderness, in the right upper quadrant and left upper quadrant, moderate abdominal tenderness, in the epigastric area, Vital Signs: 19:54 BP 114 / 69; Pulse 81; Resp 17; Temp 98.2; Pulse Ox 100% ; Weight 44.45 kg; Height 5 ha1 ft. 0 in. ; Pain 6/10; 20:54 BP 113 / 83; Pulse 66; Resp 16; Pulse Ox 95% ; kt5 19:54 Body Mass Index 19.14 (44.45 kg, 152.4 cm) ha1 19:54 Pain Scale: Adult ha1 MDM: 19:44 Medical Screening Exam initiated kb 22:42 Differential diagnosis: cholecystitis, Cholelithiasis, gastritis, gastroesophageal kb reflux disease, non-specific abd pain, pancreatitis, Peptic Ulcer Disease, Malignancy. Data reviewed: vital signs, nurses notes. Historians other than the Patient: Parent: Mother. Counseling: I had a detailed discussion with the patient and/or guardian regarding the historical points, exam findings, and any diagnostic results supporting the discharge/admit diagnosis, lab results, radiology results, the need for outpatient follow up, a analyst programmer, to return to the emergency department if symptoms worsen or persist or if there are any questions or concerns that arise at home. 11/16 19:45 Order name: CBC with Diff; Complete Time: 20:24 kb 11/16 19:45 Order name: CMP; Complete Time: 20:30 kb 11/16 19:45 Order name: Lipase; Complete Time: 20:30 kb 11/16 19:45 Order name: Test, Urine; Complete Time: 20:24 kb 11/16 19:45 Order name: CT Abd/Pelvis - IV Contrast Only; Complete Time: 21:02 kb 11/16 19:45 Order name: IV Saline Lock; Complete Time: 20:01 kb 11/16 19:45 Order name: Labs collected and sent; Complete Time: 20:01 kb Administered Medications: 20:24 Drug: Famotidine IVP 20 mg IVP once; dilute with 10 mL 0.9% NaCl; give over 2 minutes kt5 Route: IVP; Site: left antecubital; 21:22 Follow up: Response: No adverse reaction; Nausea is decreased kt5 20:24 Drug: Ondansetron IVP 4 mg IVP once; over 2 minutes Route: IVP; Site: left antecubital; kt5 21:23 Follow up: Response: No adverse reaction; Nausea is decreased kt5 20:24 Drug: NS 0.9% IV 1000 ml IV at 1 bolus Per protocol; to be given as a bolus over 60 kt5 minutes Route: IV; Rate: 1 bolus; Site: left antecubital; 21:22 Follow up: IV Status: Completed infusion; IV Intake: 1000ml kt5 20:25 Drug: TORadol - Ketorolac IVP 15 mg IVP once Route: IVP; Site: left antecubital; kt5 Disposition: 11/17 06:03 I reviewed the patient's care provided by Advanced Practice Provider \T\ agree w/ the tw7 diagnosis \T\ care plan. I personally saw the pt \T\ performed a substantive portion of the visit, incldng all aspects of the (History/Exam/Medical Decision Making). Disposition Summary: 11/16/24 21:13 Discharge Ordered Notes: Location: Home kb Condition: Stable kb Diagnosis - Upper abdominal pain, unspecified kb - Nausea with vomiting, unspecified kb Followup: kb - With: Emergency Department - When: As needed - Reason: Worsening of condition Followup: kb - With: Private Physician - When: 2 - 3 days - Reason: Recheck today's complaints, Continuance of care, Re-evaluation by your physician Discharge Instructions: - Discharge Summary Sheet kb - Nausea and Vomiting, Adult, [id number] kb - Abdominal Pain, Adult, [id number] kb Forms: - Medication Reconciliation Form kb - Antibiotic Education kb - Prescription Opioid Use kb - Patient Portal Instructions kb - Leadership Thank You Letter kb Prescriptions: - ondansetron 4 mg Oral Tablet,disintegrating - take 1 tablet ORAL route every 6 hours as needed for nausea and vomiting; 12 kb tablet; Refills: 0, Product Selection Permitted Signatures: Dispatcher [employer] Lidia Mcmahon, CHARLIE-C DIE TRY OUT WORKER STAMPING-Marily Cruz, RN RN ha1 David Figueroa MD MD tw7 Rachael Buenrostro RN RN kt5
[2024-11-17 02:05] VITALS: BP 114/69; TEMP 98.2; O2SAT 100
== END 2024-11-16 21:32 | disposition home or self-care (01) ==
LOC: ER 19:29
DX: R10.13 Epigastric pain (principal); R11.2 Nausea with vomiting, unspecified
CPT/HCPCS: 85025; 36415; 81025; 83690; 80053; 74177; Q9967; J2405; J7030